=== PATIENT | female | born 1980 | race African-American/Black ===

== ENCOUNTER 2024-01-29 16:57 | Emergency (ER) | payer OTHER, SELFPAY ==
--- NOTE | ~2024-01-29 | US_ITS ---
EXAMINATION: US transvaginal DATE: 01/29/2024 21:25 INDICATION: Ovarian cyst and lower abdominal pain. TECHNIQUE: Multiple endovaginal sonographic images of the pelvis were obtained. COMPARISON: None. FINDINGS: The uterus measures 7.4 x 4.0 x 4.2r cm. The endometrial complex measures 10 mm in thickness. The ri ght ovary measures 3.2 x 1.5 x 2.2 cm. The left ovary measures 3.7 x 2.4 x 2.6 cm. 2.[address]/follicle at the left ovary. Vascular flow identified in both ovaries on color Doppler. There is sm all amount of anechoic likely physiologic free fluid in the pelvis. IMPRESSION: 1. Redemonstration of a 2.1 cm anechoic cyst/follicle in the left ovary with vascular flow identified in both ovaries on color Doppler. Reviewed, dictated and finalized at location A. IMPRESSION: 1. Redemonstration of a 2.1 cm anechoic cyst/follicle in the left ovary with va scular flow identified in both ovaries on color Doppler.
--- NOTE | ~2024-01-29 | CT_ITS ---
EXAMINATION: CT abdomen pelvis w con DATE: 01/29/2024 20:09 INDICATION: Diffuse abdominal pain TECHNIQUE: Computed tomography (CT) of the abdomen and pelvis was performed with 100 mL Omnipaque-350 intravenous contrast. Automated exposure control and iterative reconstruction technique were employe d. The dose-length product was 880.08 mGy-cm. COMPARISON: None FINDINGS: Lung bases are clear. Heart size is normal. No pericardial or pleural effusion. Focal hepatic steatos is at the ligamentum teres. Decompressed gallbladder, spleen, pancreas, bilateral adrenal glands and kidneys are normal. Suture line likely related to appendectomy at the tip the cecum. Bowels are other valdez normal with no wall thickening or obstruction. Decompressed bladder is normal. 2 cm left ovarian cyst/follicle. The anteverted uterus, right ovary and partially decompressed bladder are unremarkabl e. Minimal likely physiologic free fluid in the cul-de-sac. No pathologically enlarged abdominal or p elvic lymphadenopathy. Mild bilateral hip osteoarthritis. IMPRESSION: 1. 2 similar left adnexal cyst/follicle and small amount of likely physiologic free fluid in the cul- de-sac. No other acute intra-abdominal/pelvic process. Reviewed, dictated and finalized at location A. IMPRESSION: 1. 2 similar left adnexal cyst/follicle and small amount of likely physiologic free fluid in the cul-de-sac. No other acute intra-abdominal/pelvic process.
[2024-01-29 17:17] VITALS: BP 136/89; PULSE 78; RESP 18; TEMP 36.4; O2SAT 98
--- NOTE | 2024-01-29 18:13 | ED_ITS ---
HPI - Nausea/Vomiting/Diarrhea General Chief complaint: Nausea/Vomiting/Diarrhea <Desiree Vazquez PA-C - Last Filed: 01/31/24 17:19> Stated complaint: abd pain/vomitting <Desiree Vazquez PA-C - Last Filed: 01/31/24 17:19> Time Seen by Provider: 01/29/24 18:13 <Desiree Vazquez PA-C - Last Filed: 01/31/24 17:19> Focused HPI: this is a 43-year-old female that presents emergency department for abdominal pain, nausea and vomiting. Reports this has been ongoing issue for her for several months. Worsening over the last couple of days. She has seen a GI doctor and was told she had fatty liver disease. She reports she saw blood in her vomit. Denies fevers. GENERAL: Well-appearing, well-nourished, and in no acute distress. HEAD: Normocephalic, atraumatic. CHEST: Clear to auscultation. ?No respiratory distress. HEART: Regular rate and rhythm.? NEURO: ?Alert and oriented x3. Patient screened in triage and initial orders placed.? ?Additional care and disposition to be based upon?diagnostic testing and treatment. <Desiree Vazquez PA-C - Last Filed: 01/31/24 17:19> History of Present Illness HPI Narrative: 43-year-old female with a history of fatty liver disease presents to emergency department via EMS from home for vomiting for 6 months and abdominal pain for 2 and half days. Patient states her pain is located in her lower abdomen she describes it is a sharp pain and states she has burning in her upper abdomen. She states every time she tries to eat or drink any type of food she will immediately vomit. This is been ongoing for 6 months. States she has followed with GI has had an EGD. She is still showed fatty liver disease but otherwise states her workup was normal. She has not followed up since. She states she has noticed blood in her vomit today and she has had dark stools for the past couple of days. She is not anticoagulated. Denies dysuria or hematuria, constipation or diarrhea, emesis. She reports associated nausea. She states she uses alcohol occasionally and denies drug use. <Mary Dubois PA-C - Last Filed: 01/29/24 22:29> Related Data Allergies/Adverse reactions: Allergies Allergy/AdvReac Type Severity Reaction Status Date / Time amoxicillin Allergy Swelling Verified 01/29/24 16:58 <Desiree Vazquez PA-C - Last Filed: 01/31/24 17:19> Review of Systems Review of Systems: All systems reviewed & are unremarkable except as noted in HPI and below <Mary Dubois PA-C - Last Filed: 01/29/24 22:29> [facility] Past Medical History Medical History: Medical History (Updated 01/31/24 @ 17:19 by Desiree Vazquez PA-C) History of gastroesophageal reflux (GERD) History of migraine <Desiree Vazquez PA-C - Last Filed: 01/31/24 17:19> Social History Social History: Social History (Updated 01/31/24 @ 17:18 by Desiree Vazquez PA-C) Substance use: never <Desiree Vazquez PA-C - Last Filed: 01/31/24 17:19> Exam Narrative: GENERAL: Well-appearing, well-nourished, and in no acute distress. HEAD: Normocephalic, atraumatic. EYES: EOMI. ENT: Nares clear, no rhinorrhea or epistaxis. Mucous membranes moist. NECK: Supple. CHEST: Clear to auscultation. No respiratory distress. HEART: Regular rate and rhythm. No murmur heard. Normal peripheral pulses. ABDOMEN: Normoactive bowel sounds. Abdomen soft with mild lower abdominal tenderness. No rebound, guarding or rigidity. No CVA tenderness. Rectal exam chaperoned by DREW Rico -no hemorrhoids or fissures visualized, no melena or hematochezia. Hemoccult negative EXTREMITIES: Normal range of motion. No edema. SKIN: Warm, dry, no rash. NEURO: No focal deficits. Alert and oriented x3 <Mary Dubois PA-C - Last Filed: 01/29/24 22:29> Course Vital Signs Vital signs: Vital Signs Temperature 97.6 F 01/29/24 17:17 Pulse Rate 78 01/29/24 17:17 Respiratory Rate 18 01/29/24 17:17 Blood Pressure 136/89 01/29/24 17:17 Pulse Oximetry 98 01/29/24 17:17 Temperature 97.6 F 01/29/24 17:17 Pulse Rate 89 01/29/24 19:45 Respiratory Rate 20 01/29/24 19:45 Blood Pressure 114/79 01/29/24 19:33 Pulse Oximetry 100 01/29/24 19:45 <Desiree Vazquez PA-C - Last Filed: 01/31/24 17:19> Vital Signs Temperature 97.6 F 01/29/24 17:17 Pulse Rate 78 01/29/24 17:17 Respiratory Rate 18 01/29/24 17:17 Blood Pressure 136/89 01/29/24 17:17 Pulse Oximetry 98 01/29/24 17:17 Temperature 97.6 F 01/29/24 17:17 Pulse Rate 89 01/29/24 19:45 Respiratory Rate 20 01/29/24 19:45 Blood Pressure 114/79 01/29/24 19:33 Pulse Oximetry 100 01/29/24 19:45 <Mary Dubois PA-C - Last Filed: 01/29/24 22:29> MDM - Nausea/Vomiting/Diarrhea MDM Narrative Medical decision making narrative: 43-year-old female with history of fatty liver disease presents to emergency department for abdominal pain for 2 and half days and vomiting for 6 months. Triage vitals are stable. She is afebrile nontoxic appearing. She is resting comfortably in exam bed. Exam is significant for the above. Hemoccult is negative, no melena or hematochezia appreciated on exam. CBC shows mild leukocytosis of 11.8. Hemoglobin is stable at 12, chemistries are unremarkable. Lipase is normal. UA without wbc's. There are trace leuk esterase and 4+ bacteria, the sample is contaminated with many squamous cells. She has no symptoms of UTI. is negative. EKG shows sinus rhythm with rate of 70 BP a, normal [place] interval, normal QRS duration, normal QTC. Troponin is undetectable. CT abdomen pelvis shows 2 similar left adnexal cyst falls goals and small amount of likely physiologic free fluid in the cul-de-sac, there is no other acute intra-abdominal or pelvic process. Given these findings, a pe lvic ultrasound which obtained which shows no evidence of torsion. There is a redemonstration of the 2.1 cm anechoic cyst/follicle in the left ovary with vascular flow identified to both ovaries. Patient was updated on workup. She received IV fluids, Zofran, Protonix and morphine with improvement. She has not had any episodes of melena or hematemesis in the ED. She is tolerating p.o. intake in the ED. Feel she is safe to be discharged home with Protonix and Zofran. Encouraged frequent small meals and close follow-up with GI and OBGYN. Strict ED return precautions discussed. She is agreeable to plan verbalized understanding. Discharged in stable condition <Mary Dubois PA-C - Last Filed: 01/29/24 22:29> Lab Data Result diagrams: 01/29/24 19:17 01/29/24 19:17 <Desiree Vazquez PA-C - Last Filed: 01/31/24 17:19> Labs: Lab Results 01/29/24 01/29/24 Range/Units 18:56 19:17 WBC 11.8 H (4.5-10.0) K/mm3 RBC 4.29 (4.2-5.4) M/mm3 Hgb 12.0 (12.0-15.0) g/dL Hct 37.1 (37.0-47.0) % MCV 86.5 (80-100) fl MCH 28.0 (26-34) pg MCHC 32.3 (32-36) g/dl RDW 14.6 H (11.5-14.5) % Plt Count 361 (150-375) k/mm3 MPV 9.0 (7.4-10.4) fl Immature Gran % (Auto) 0.3 (0-0.5) % Neut % (Auto) 62.7 (45.5-73.1) % Lymph % (Auto) 25.2 (18.3-44.2) % Shannon % (Auto) 9.9 H (2.6-8.5) % Eos % (Auto) 1.5 (0-4.4) % Baso % (Auto) 0.4 (0.2-1.2) % Lymph # (Auto) 2.97 (0.9-3.2) K/mm3 Shannon # (Auto) 1.2 H (0.1-0.6) K/mm3 Eos # (Auto) 0.2 (0-0.3) K/mm3 Baso # (Auto) 0.1 (0.0-0.1) K/mm3 Abs Immat Gran (auto) 0.04 H (0.00-0.031) K/mm3 Absolute Neuts (auto) 7.4 H (1.3-6.7) K/mm3 Absolute Nucleated RBC 0.000 (0.0-0.012) K/mm3 Nucleated RBC % 0.0 (0.0-0.2) % PT 12.9 (11.1-14.7) Seconds INR 0.9 APTT 28.9 (22.3-36.8) Seconds Sodium 137 (137-145) mmol/L Potassium 3.5 (3.4-5.0) mmol/L Chloride 104 (98-107) mmol/L Carbon Dioxide 28 (22-30) mmol/L Anion Gap 5 (4-12) mmol/L BUN 8 (7-17) mg/dL Creatinine 0.70 (0.7-1.0) mg/dL Estim Creat Clear Calc 99 ml/min Estimated GFR > 60 (59 - ) Glucose 105 (65-110) mg/dL Calcium 8.7 (8.4-10.2) mg/dL Total Bilirubin 0.3 (0.2-1.3) mg/dL AST 20 (14-36) U/L ALT 17 (6-35) U/L Alkaline Phosphatase 66 (38-126) U/L Troponin I < 0.012 (0.000-0.034) ng/mL Total Protein 7.0 (6.3-8.2) g/dL Albumin 4.0 (3.5-5.1) g/dL Lipase 77 (23-300) U/L Urine Color Yellow (Yellow) Urine Appearance Cloudy H (Clear) Urine pH 6.0 (5.0-9.0) Ur Specific [place] 1.027 (1.001-1.035) Urine Protein 1+ H (Negative) mg/dL Urine Glucose (UA) Negative (Negative) mg/dL Urine Ketones Trace H (Negative) mg/dL Ur Blood (Man) Negative (Negative) Urine Nitrate Negative (Negative) Urine Bilirubin Negative (Negative) Urine Urobilinogen 1.0 (<2.0) mg/dL Add Ur Microanalysis Reviewed Leukocyte Esterase Rfl Trace H (Negative) RODRÍGUEZ/UL Urine RBC 0-2 (0-2) /hpf Urine WBC 0-5 (0-3) /hpf Ur Squamous Epith Cells Many H (Few) /hpf Urine Bacteria 4+ H /hpf Urine Casts 0-2 POC Urine HCG, Qual Negative (Negative) <Desiree Vazquez PA-C - Last Filed: 01/31/24 17:19> Lab Results 01/29/24 01/29/24 Range/Units 18:56 19:17 WBC 11.8 H (4.5-10.0) K/mm3 RBC 4.29 (4.2-5.4) M/mm3 Hgb 12.0 (12.0-15.0) g/dL Hct 37.1 (37.0-47.0) % MCV 86.5 (80-100) fl MCH 28.0 (26-34) pg MCHC 32.3 (32-36) g/dl RDW 14.6 H (11.5-14.5) % Plt Count 361 (150-375) k/mm3 MPV 9.0 (7.4-10.4) fl Immature Gran % (Auto) 0.3 (0-0.5) % Neut % (Auto) 62.7 (45.5-73.1) % Lymph % (Auto) 25.2 (18.3-44.2) % Shannon % (Auto) 9.9 H (2.6-8.5) % Eos % (Auto) 1.5 (0-4.4) % Baso % (Auto) 0.4 (0.2-1.2) % Lymph # (Auto) 2.97 (0.9-3.2) K/mm3 Shannon # (Auto) 1.2 H (0.1-0.6) K/mm3 Eos # (Auto) 0.2 (0-0.3) K/mm3 Baso # (Auto) 0.1 (0.0-0.1) K/mm3 Abs Immat Gran (auto) 0.04 H (0.00-0.031) K/mm3 Absolute Neuts (auto) 7.4 H (1.3-6.7) K/mm3 Absolute Nucleated RBC 0.000 (0.0-0.012) K/mm3 Nucleated RBC % 0.0 (0.0-0.2) % PT 12.9 (11.1-14.7) Seconds INR 0.9 APTT 28.9 (22.3-36.8) Seconds Sodium 137 (137-145) mmol/L Potassium 3.5 (3.4-5.0) mmol/L Chloride 104 (98-107) mmol/L Carbon Dioxide 28 (22-30) mmol/L Anion Gap 5 (4-12) mmol/L BUN 8 (7-17) mg/dL Creatinine 0.70 (0.7-1.0) mg/dL Estim Creat Clear Calc 99 ml/min Estimated GFR > 60 (59 - ) Glucose 105 (65-110) mg/dL Calcium 8.7 (8.4-10.2) mg/dL Total Bilirubin 0.3 (0.2-1.3) mg/dL AST 20 (14-36) U/L ALT 17 (6-35) U/L Alkaline Phosphatase 66 (38-126) U/L Troponin I < 0.012 (0.000-0.034) ng/mL Total Protein 7.0 (6.3-8.2) g/dL Albumin 4.0 (3.5-5.1) g/dL Lipase 77 (23-300) U/L Urine Color Yellow (Yellow) Urine Appearance Cloudy H (Clear) Urine pH 6.0 (5.0-9.0) Ur Specific [place] 1.027 (1.001-1.035) Urine Protein 1+ H (Negative) mg/dL Urine Glucose (UA) Negative (Negative) mg/dL Urine Ketones Trace H (Negative) mg/dL Ur Blood (Man) Negative (Negative) Urine Nitrate Negative (Negative) Urine Bilirubin Negative (Negative) Urine Urobilinogen 1.0 (<2.0) mg/dL Add Ur Microanalysis Reviewed Leukocyte Esterase Rfl Trace H (Negative) RODRÍGUEZ/UL Urine RBC 0-2 (0-2) /hpf Urine WBC 0-5 (0-3) /hpf Ur Squamous Epith Cells Many H (Few) /hpf Urine Bacteria 4+ H /hpf Urine Casts 0-2 POC Urine HCG, Qual Negative (Negative) <Mary Dubois PA-C - Last Filed: 01/29/24 22:29> Imaging Data Radiologist's impression: ITS Impressions Abdomen/Pelvis CT 01/29/24 20:10 IMPRESSION: 1. 2 similar left adnexal cyst/follicle and small amount of likely physiologic free fluid in the cul-de-sac. No other acute intra-abdominal/pelvic process. Transvaginal US 01/29/24 21:28 IMPRESSION: 1. Redemonstration of a 2.1 cm anechoic cyst/follicle in the left ovary with vascular flow identified in both ovaries on color Doppler. <ZAIN Walter Last Filed: 01/31/24 17:19> Critical Care Time Critical Care Time Critical Care Time: No <ZAIN Walter Last Filed: 01/31/24 17:19> Discharge Plan Discharge Clinical Impression: Abdominal pain, Ovarian cyst <ZAIN Walter Last Filed: 01/31/24 17:19> Patient Disposition: Home, Self-Care <ZAIN Walter Last Filed: 01/31/24 17:19> Condition: Stable <ZAIN Walter Last Filed: 01/31/24 17:19> Instructions: Antibiotic Form, Ovarian Cyst (ED), Acute Nausea and Vomiting (ED), Abdominal Pain (ED) <ZAIN Walter Last Filed: 01/31/24 17:19> Additional Instructions: Your evaluated in the emergency department for lower abdominal pain and v omiting. Your found to have a 2 cm cyst to her left ovary which may be physiologic as discussed. Your workup was otherwise unremarkable. Please take Protonix as directed and Zofran as needed and follow-up closely with the GI physician as well as the OBGYN. Return to the emergency department if you develop large amounts of blood in her stool or dark tarry stools, or vomiting blood, chest pain, loss of consciousness, changing worsening abdominal pain, or other concerning symptoms. <ZAIN Walter Last Filed: 01/31/24 17:19> Prescriptions: New ondansetron 4 mg tablet,disintegrating 4 mg PO Q8H Qty: 14 0RF pantoprazole 40 mg tablet,delayed release (DR/EC) 40 mg PO HS 28 Days Qty: 28 0RF <Desiree Vazquez PA-C - Last Filed: 01/31/24 17:19> Follow-up/Referrals: Nell Valdez MD [Physician] - 1 Day PHYSICIAN,HOUSING PROJECT MANAGER [Primary Care Provider] - Omid Brennan MD [Physician] - 1 Day <Desiree Vazquez PA-C - Last Filed: 01/31/24 17:19> Stand Alone Forms: Work/School Release IP <Desiree Vazquez PA-C - Last Filed: 01/31/24 17:19>
[2024-01-29 18:45] VITALS: BP 128/110; RESP 20; O2SAT 100
[2024-01-29 18:58] LABS: BEDSIDEPREGUCG Negative (Negative)
--- NOTE | 2024-01-29 18:59 | ECG_ITS ---
Test Date: 2024-01-29 19:29:29 Measurements Intervals [place] Rate: 78 P: 32 [place]: 134 QRS: 22 QRSD: 75 T: 15 QT: 368 QTc: 421 Interpretive Statements SINUS RHYTHM No previous ECG available for comparison Electronically Signed On 01-30-2024 09:39:01 CDT by Leidy Argueta M.D.
[2024-01-29 19:23] LABS: Basophils Absolute Auto 0.1 K/mm3 (0.0-0.1); Basophils Percent Auto 0.4 % (0.2-1.2); Eosinophils Absolute Auto 0.2 K/mm3 (0-0.3); Eosinophils Percent Auto 1.5 % (0-4.4); Hematocrit 37.1 % (37.0-47.0); Immature Granulocyte Absolute 0.04 K/mm3 (0.00-0.031); Immature Granulocyte Percent A 0.3 % (0-0.5); Lymphocytes Absolute Auto 2.97 K/mm3 (0.9-3.2); Lymphocytes Percent Auto 25.2 % (18.3-44.2); Mean Corpuscular HGB Conc 32.3 g/dl (32-36); Mean Corpuscular Volume 86.5 fl (80-100); Monocytes Absolute Auto 1.2 K/mm3 (0.1-0.6); Monocytes Percent Auto 9.9 % (2.6-8.5); Neutrophils Absolute Auto 7.4 K/mm3 (1.3-6.7); Neutrophils Percent Auto 62.7 % (45.5-73.1); Platelet Count Result 361 k/mm3 (150-375); Red Blood Count 4.29 M/mm3 (4.2-5.4); Red Cell Distribution Width 14.6 % (11.5-14.5); White Blood Count 11.8 K/mm3 (4.5-10.0)
[2024-01-29] MEDS: SODIUM CHLORIDE 0.9% IV 1,000 ML 999 ML IV CONT (19:28)
[2024-01-29 19:31] LABS: Alanine Aminotransferase 17 U/L (6-35); Alkaline Phosphatase 66 U/L (38-126); Anion Gap 5 mmol/L (4-12); Aspartate Amino Transferase 20 U/L (14-36); Bilirubin,Total 0.3 mg/dL (0.2-1.3); Blood Urea Nitrogen 8 mg/dL (7-17); Calcium 8.7 mg/dL (8.4-10.2); Carbon Dioxide 28 mmol/L (22-30); Chloride 104 mmol/L (98-107); Estimated CRCL calculation 99 ml/min; Estimated Glomerular Filt Rate > 60; Glucose 105 mg/dL (65-110); Lipase 77 U/L (23-300); Potassium 3.5 mmol/L (3.4-5.0); Sodium 137 mmol/L (137-145)
[2024-01-29] MEDS: PANTOPRAZOLE SODIUM IV 40 MG VIAL IV PUSH (19:31)
[2024-01-29] MEDS: ONDANSETRON INJ 4 MG/2 ML VIAL IV PUSH (19:32)
[2024-01-29 19:33] VITALS: BP 114/79; PULSE 75; RESP 18; O2SAT 99
[2024-01-29 19:36] LABS: INR 0.9; Partial Thromboplastin Time 28.9 Seconds (22.3-36.8); Prothrombin Time 12.9 Seconds (11.1-14.7)
[2024-01-29 19:39] LABS: Add Urine Microscopic? YES; Appearance Urine Cloudy (Clear); Bacteria Urine 4+ /hpf; Bilirubin Urine Negative (Negative); Blood Urine Negative (Negative); Color Urine Yellow (Yellow); Glucose Urine UA Negative (Negative); Ketones Urine Trace mg/dL (Negative); Leukocyte Esterase Ur Trace LEU/UL (Negative); Need Manual Microscopic Reviewed; Nitrate Urine Negative (Negative); Non Pathogenic Casts 0-2; Protein Urine 1+ mg/dL (Negative); RBC Urine 0-2 /hpf (0-2); Specific Grav Ur 1.027 (1.001-1.035); Squamous Epithelial Cell Urine Many /hpf (Few); WBC Urine 0-5 /hpf (0-3)
[2024-01-29 19:45] VITALS: PULSE 89; RESP 20; O2SAT 100
[2024-01-29 19:48] LABS: Troponin I < 0.012 ng/mL (0.000-0.034)
[2024-01-29] MEDS: MORPHINE SULFATE (*CRX) 4 MG/ML INJ IV PUSH (20:51)
== END 2024-01-29 22:46 | disposition home or self-care (01) ==
PROVIDERS: Physician Assistant; Emergency Provider Physician Assistant
DX: N83.202 Unspecified ovarian cyst, left side (principal); R10.9 Unspecified abdominal pain; K21.9 Gastro-esophageal reflux disease without esophagitis; K76.0 Fatty (change of) liver, not elsewhere classified
CPT/HCPCS: 36415; 74177; 76830; 80053; 81001; 81025; 83690; 84484; 85025; 85610; 85730; 93005; 96361; 96374; 96375; 99284; J2270; J2405; J2470; J7030; Q9967

== ENCOUNTER 2024-02-04 14:07 | Emergency (ER) | payer OTHER, SELFPAY ==
--- NOTE | ~2024-02-04 | CT_ITS ---
EXAMINATION: CT abdomen pelvis w con DATE: 02/04/2024 17:26 INDICATION: One month of abdominal pain TECHNIQUE: Computed tomography (CT) of the abdomen and pelvis was performed with 100 mL Omnipaque-350 intravenous contrast. Automated exposure control and iterative reconstruction technique were employe d. The dose-length product was 982.74 mGy-cm. COMPARISON: 01/29/2024 FINDINGS: Lung bases are clear. Heart size is normal. No pericardial or pleural effusion. Focal hepatic steatos is at the ligamentum teres. Gallbladder, spleen, pancreas, bilateral adrenal glands and kidneys are n ormal. Suture line likely related to prior appendectomy with the tip the cecum. No bowel obstruction or abnormal bowel wall thickening. Decompressed bladder and anteverted uterus are normal. 1.7 cm jada pherally enhancing corpus luteum cyst at the left ovary. Phleboliths in the pelvis. Small amount of l ikely physiologic free fluid in the cul-de-sac. No pathologically enlarged abdominal or pelvic lympha denopathy. Mild bilateral hip osteoarthritis. IMPRESSION: 1. 1.7 cm left ovarian corpus luteum cyst and small amount of likely physiologic free fluid in the cu l-de-sac. No other acute intra-abdominal/pelvic process. Reviewed, dictated and finalized at location A. IMPRESSION: 1. 1.7 cm left ovarian corpus luteum cyst and small amount of likely physiologi c free fluid in the cul-de-sac. No other acute intra-abdominal/pelvic process.
[2024-02-04 14:32] VITALS: BP 117/82; PULSE 85; RESP 16; TEMP 36.6; O2SAT 100
--- NOTE | 2024-02-04 14:37 | ECG_ITS ---
Test Date: 2024-02-04 14:53:46 Measurements Intervals [place] Rate: 75 P: -20 [place]: 138 QRS: 24 QRSD: 74 T: 1 QT: 349 QTc: 392 Interpretive Statements SINUS RHYTHM Compared to ECG 01/29/2024 19:29:29 No significant changes Electronically Signed On 02-05-2024 14:23:51 CDT by Leidy Argueta M.D.
--- NOTE | 2024-02-04 14:39 | ED_ITS ---
HPI - Abdominal Pain General Chief Complaint: Abdominal Pain <Erin Silverio APRN - Last Filed: 02/04/24 14:41> Stated Complaint: abdominal pain, N/V <Erin Silverio APRN - Last Filed: 02/04/24 14:41> Time Seen by Provider: 02/04/24 14:30 <Erin Silverio APRN - Last Filed: 02/04/24 14:41> Focused HPI: Patient is a 43-year-old female who presents to the ER with complaints abdominal pain that has been going on for over a week. She reports she was seen here last week, had an ultrasound done, and was diagnosed with an ovarian cyst. This morning she went to her primary care provider who advised her to come to the ER. Her primary care provider told her to request evaluation by a surgeon. Patient endorses constant, lower abdominal pain with pressure during urination. She denies any concern for STDs and reports her last menstrual period was January 08 through the . GENERAL: Well-appearing, well-nourished, and in no acute distress. HEAD: Normocephalic, atraumatic. CHEST: Clear to auscultation. ?No respiratory distress. HEART: Regular rate and rhythm.? NEURO: ?Alert and oriented x3. Patient screened in triage and initial orders placed.? ?Additional care and disposition to be based upon?diagnostic testing and treatment. <Erin Silverio APRN - Last Filed: 02/04/24 14:41> Related Data Allergies/Adverse Reactions: Allergies Allergy/AdvReac Type Severity Reaction Status Date / Time amoxicillin Allergy Swelling Verified 02/04/24 14:34 <Erin Silverio APRN - Last Filed: 02/04/24 14:41> Review of Systems Review of Systems: CONSTITUTIONAL: Denies fever GASTROINTESTINAL: Reports abdominal pain, nausea, vomiting GENITOURINARY: Reports dysuria. Denies hematuria. <Desiree Vazquez PA-C - Last Filed: 02/04/24 19:20> All systems reviewed & are unremarkable except as noted in HPI and below <Desiree Vazquez PA-C - Last Filed: 02/04/24 19:20> PMFSH Past Medical History Medical History: Medical History (Updated 02/04/24 @ 19:17 by Desiree Vazquez PA-C) History of gastroesophageal reflux (GERD) History of migraine <Erin Silverio APRN - Last Filed: 02/04/24 14:41> Social History Social History: Social History (Updated 01/31/24 @ 17:18 by eDsiree Vazquez PA-C) Substance use: never <Erin Silverio APRN - Last Filed: 02/04/24 14:41> Exam Narrative: GENERAL: Well-appearing, well-nourished, and in no acute distress. HEAD: Normocephalic, atraumatic. EYES: EOMI. CHEST: Clear to auscultation. No respiratory distress. No wheezes rales or rhonchi HEART: Regular rate and rhythm. No murmur heard. Normal peripheral pulses. ABDOMEN: Soft, nondistended, normal active bowel sounds. Mild tenderness to palpation throughout the lower abdomen, without guarding EXTREMITIES: Normal range of motion. No edema. SKIN: Warm, dry, no rash. NEURO: No focal deficits. Alert and oriented x3. PSYCH: Normal mood and affect <Desiree Vazquez PA-C - Last Filed: 02/04/24 19:20> Course Course Emergency Course: Patient updated on her workup <Desiree Vazquez PA-C - Last Filed: 02/04/24 19:20> Vital Signs Vital signs: Vital Signs Temperature 97.9 F 02/04/24 14:32 Pulse Rate 85 02/04/24 14:32 Respiratory Rate 16 02/04/24 14:32 Blood Pressure 117/82 02/04/24 14:32 Pulse Oximetry 100 02/04/24 14:32 Oxygen Delivery Room Air 02/04/24 14:32 Temperature 97.8 F 02/04/24 17:31 Pulse Rate 70 02/04/24 17:31 Respiratory Rate 15 02/04/24 17:31 Blood Pressure 107/72 02/04/24 17:31 Pulse Oximetry 98 02/04/24 17:31 Oxygen Delivery Room Air 02/04/24 17:31 <Erin Silverio APRN - Last Filed: 02/04/24 14:41> Vital Signs Temperature 97.9 F 02/04/24 14:32 Pulse Rate 85 02/04/24 14:32 Respiratory Rate 16 02/04/24 14:32 Blood Pressure 117/82 02/04/24 14:32 Pulse Oximetry 100 02/04/24 14:32 Oxygen Delivery Room Air 02/04/24 14:32 Temperature 97.8 F 02/04/24 17:31 Pulse Rate 70 02/04/24 17:31 Respiratory Rate 15 02/04/24 17:31 Blood Pressure 107/72 02/04/24 17:31 Pulse Oximetry 98 02/04/24 17:31 Oxygen Delivery Room Air 02/04/24 17:31 <Desiree Vazquez PA-C - Last Filed: 02/04/24 19:20> MDM - Abdominal Pain MDM Narrative Medical decision making narrative: Patient presents to the emergency department for lower abdominal pain. Ongoing over the last week. She is afebrile and nontoxic appearing. Her vitals are stable. CBC without leukocytosis. Metabolic panel without concerning findings. Urine without evidence of infection. This will be sent for culture. Patient given 1st dose of antibiotics IV in the ER. Lactic acid is not elevated. CT abdomen and pelvis once again shows a small ovarian cyst, otherwise no acute findings. Patient updated on her workup. Will be continued on oral antibiotics for UTI. She is to follow up with primary provider. She was given warnings to return to the ER <Desiree Vazquez PA-C - Last Filed: 02/04/24 19:20> Differential Diagnosis Differential diagnosis: Likely acute appendicitis, calculus of kidney, constipation, diverticulitis, gastroenteritis and other (ovarian cyst, acute UTI, pyelonephritis) <Desiree Vazquez PA-C - Last Filed: 02/04/24 19:20> Lab Data Attestation: I reviewed the patient's lab results. <Desiree Vazquez PA-C - Last Filed: 02/04/24 19:20> Result diagrams: 02/04/24 15:04 02/04/24 15:04 <Erin Silverio APRN - Last Filed: 02/04/24 14:41> Labs: Lab Results 02/04/24 02/04/24 02/04/24 Range/Units 15:04 15:05 17:41 WBC 8.3 (4.5-10.0) K/mm3 RBC 4.42 (4.2-5.4) M/mm3 Hgb 12.2 (12.0-15.0) g/dL Hct 37.6 (37.0-47.0) % MCV 85.1 (80-100) fl MCH 27.6 (26-34) pg MCHC 32.4 (32-36) g/dl RDW 14.5 (11.5-14.5) % Plt Count 358 (150-375) k/mm3 MPV 8.9 (7.4-10.4) fl Immature Gran % (Auto) 0.2 (0-0.5) % Neut % (Auto) 59.6 (45.5-73.1) % Lymph % (Auto) 27.5 (18.3-44.2) % Sabine % (Auto) 11.2 H (2.6-8.5) % Eos % (Auto) 1.3 (0-4.4) % Baso % (Auto) 0.2 (0.2-1.2) % Lymph # (Auto) 2.27 (0.9-3.2) K/mm3 Sabine # (Auto) 0.9 H (0.1-0.6) K/mm3 Eos # (Auto) 0.1 (0-0.3) K/mm3 Baso # (Auto) 0.0 (0.0-0.1) K/mm3 Abs Immat Gran (auto) 0.02 (0.00-0.031) K/mm3 Absolute Neuts (auto) 4.9 (1.3-6.7) K/mm3 Absolute Nucleated RBC 0.000 (0.0-0.012) K/mm3 Nucleated RBC % 0.0 (0.0-0.2) % PT 14.3 (11.1-14.7) Seconds INR 1.1 APTT 34.7 (22.3-36.8) Seconds Sodium 139 (137-145) mmol/L Potassium 3.4 (3.4-5.0) mmol/L Chloride 106 (98-107) mmol/L Carbon Dioxide 25 (22-30) mmol/L Anion Gap 8 (4-12) mmol/L BUN 6 L (7-17) mg/dL Creatinine 0.60 L (0.7-1.0) mg/dL Estim Creat Clear Calc 113 ml/min Estimated GFR > 60 (59 - ) Glucose 103 (65-110) mg/dL Lactic Acid 1.3 (0.7-2.0) mmol/L Calcium 8.8 (8.4-10.2) mg/dL Total Bilirubin 0.3 (0.2-1.3) mg/dL AST 22 (14-36) U/L ALT 17 (6-35) U/L Alkaline Phosphatase 68 (38-126) U/L Troponin I < 0.012 (0.000-0.034) ng/mL Total Protein 7.0 (6.3-8.2) g/dL Albumin 4.2 (3.5-5.1) g/dL Lipase 77 (23-300) U/L Urine Color Dark yellow (Yellow) Urine Appearance Turbid H (Clear) Urine pH 5.5 (5.0-9.0) Ur Specific Tinnie 1.034 (1.001-1.035) Urine Protein 1+ H (Negative) mg/dL Urine Glucose (UA) Negative (Negative) mg/dL Urine Ketones Trace H (Negative) mg/dL Ur Blood (Man) Negative (Negative) Urine Nitrate Negative (Negative) Urine Bilirubin Negative (Negative) Urine Urobilinogen 1.0 (<2.0) mg/dL Add Ur Microanalysis Reviewed Leukocyte Esterase Rfl 1+ H (Negative) RODRÍGUEZ/UL Urine RBC 3-5 H (0-2) /hpf Urine WBC 51-100 H (0-3) /hpf Ur Squamous Epith Cells Many H (Few) /hpf Urine Bacteria 4+ H /hpf Urine Casts 0-2 <Erin Silverio, [employer] PRESS HAND - Last Filed: 02/04/24 14:41> Lab Results 02/04/24 02/04/24 02/04/24 Range/Units 15:04 15:05 17:41 WBC 8.3 (4.5-10.0) K/mm3 RBC 4.42 (4.2-5.4) M/mm3 Hgb 12.2 (12.0-15.0) g/dL Hct 37.6 (37.0-47.0) % MCV 85.1 (80-100) fl MCH 27.6 (26-34) pg MCHC 32.4 (32-36) g/dl RDW 14.5 (11.5-14.5) % Plt Count 358 (150-375) k/mm3 MPV 8.9 (7.4-10.4) fl Immature Gran % (Auto) 0.2 (0-0.5) % Neut % (Auto) 59.6 (45.5-73.1) % Lymph % (Auto) 27.5 (18.3-44.2) % Sabine % (Auto) 11.2 H (2.6-8.5) % Eos % (Auto) 1.3 (0-4.4) % Baso % (Auto) 0.2 (0.2-1.2) % Lymph # (Auto) 2.27 (0.9-3.2) K/mm3 Sabine # (Auto) 0.9 H (0.1-0.6) K/mm3 Eos # (Auto) 0.1 (0-0.3) K/mm3 Baso # (Auto) 0.0 (0.0-0.1) K/mm3 Abs Immat Gran (auto) 0.02 (0.00-0.031) K/mm3 Absolute Neuts (auto) 4.9 (1.3-6.7) K/mm3 Absolute Nucleated RBC 0.000 (0.0-0.012) K/mm3 Nucleated RBC % 0.0 (0.0-0.2) % PT 14.3 (11.1-14.7) Seconds INR 1.1 APTT 34.7 (22.3-36.8) Seconds Sodium 139 (137-145) mmol/L Potassium 3.4 (3.4-5.0) mmol/L Chloride 106 (98-107) mmol/L Carbon Dioxide 25 (22-30) mmol/L Anion Gap 8 (4-12) mmol/L BUN 6 L (7-17) mg/dL Creatinine 0.60 L (0.7-1.0) mg/dL Estim Creat Clear Calc 113 ml/min Estimated GFR > 60 (59 - ) Glucose 103 (65-110) mg/dL Lactic Acid 1.3 (0.7-2.0) mmol/L Calcium 8.8 (8.4-10.2) mg/dL Total Bilirubin 0.3 (0.2-1.3) mg/dL AST 22 (14-36) U/L ALT 17 (6-35) U/L Alkaline Phosphatase 68 (38-126) U/L Troponin I < 0.012 (0.000-0.034) ng/mL Total Protein 7.0 (6.3-8.2) g/dL Albumin 4.2 (3.5-5.1) g/dL Lipase 77 (23-300) U/L Urine Color Dark yellow (Yellow) Urine Appearance Turbid H (Clear) Urine pH 5.5 (5.0-9.0) Ur Specific Tinnie 1.034 (1.001-1.035) Urine Protein 1+ H (Negative) mg/dL Urine Glucose (UA) Negative (Negative) mg/dL Urine Ketones Trace H (Negative) mg/dL Ur Blood (Man) Negative (Negative) Urine Nitrate Negative (Negative) Urine Bilirubin Negative (Negative) Urine Urobilinogen 1.0 (<2.0) mg/dL Add Ur Microanalysis Reviewed Leukocyte Esterase Rfl 1+ H (Negative) RODRÍGUEZ/UL Urine RBC 3-5 H (0-2) /hpf Urine WBC 51-100 H (0-3) /hpf Ur Squamous Epith Cells Many H (Few) /hpf Urine Bacteria 4+ H /hpf Urine Casts 0-2 <Desiree Vazquez PA-C - Last Filed: 02/04/24 19:20> Imaging Data Radiologist's impression: ITS Impressions Abdomen/Pelvis CT 02/04/24 17:30 IMPRESSION: 1. 1.7 cm left ovarian corpus luteum cyst and small amount of likely physiologic free fluid in the cul-de-sac. No other acute intra-abdominal/pelvic process. <Erin Silverio, [employer] PRESS HAND - Last Filed: 02/04/24 14:41> ITS Impressions Abdomen/Pelvis CT 02/04/24 17:30 IMPRESSION: 1. 1.7 cm left ovarian corpus luteum cyst and small amount of likely physiologic free fluid in the cul-de-sac. No other acute intra-abdominal/pelvic process. <Desiree Vazquez PA-C - Last Filed: 02/04/24 19:20> Critical Care Time Critical Care Time Critical Care Time: No <Desiree Vazquez PA-C - Last Filed: 02/04/24 19:20> Discharge Plan Discharge Clinical Impression: Acute UTI <Erin Silverio APRN - Last Filed: 02/04/24 14:41> Patient Disposition: Home, Self-Care <Erin Silverio APRN - Last Filed: 02/04/24 14:41> Condition: Stable <Erin Silverio APRN - Last Filed: 02/04/24 14:41> Instructions: Antibiotic Form, Urinary Tract Infection in Women (ED), Abdominal Pain (ED) <Erin Silverio APRN - Last Filed: 02/04/24 14:41> Additional Instructions: Return to the ER if you experience fever, worsening abdominal pain with nausea and vomiting, you are unable to keep down liquids or solids, blood in the urine or any other symptoms that are concerning to you Remain well hydrated. Take oral antibiotics as prescribed Follow up with your primary care doctor <Erin Silverio APRN - Last Filed: 02/04/24 14:41> Prescriptions: New cefdinir 300 mg capsule 300 mg PO Q12H 7 Days Qty: 14 0RF No Action ondansetron 4 mg tablet,disintegrating 4 mg PO Q8H Qty: 14 0RF pantoprazole 40 mg tablet,delayed release (DR/EC) 40 mg PO HS 28 Days Qty: 28 0RF <Erin Silverio APRN - Last Filed: 02/04/24 14:41> Follow-up/Referrals: PHYSICIAN,SUPERVISOR ROVING [Non-Staff] - <Erin Silverio APRN - Last Filed: 02/04/24 14:41>
[2024-02-04 15:03] VITALS: BP 107/89; PULSE 80; RESP 15; O2SAT 97
[2024-02-04 15:10] LABS: Basophils Percent Auto 0.2 % (0.2-1.2); Eosinophils Absolute Auto 0.1 K/mm3 (0-0.3); Eosinophils Percent Auto 1.3 % (0-4.4); Hematocrit 37.6 % (37.0-47.0); Hemoglobin 12.2 g/dL (12.0-15.0); Immature Granulocyte Absolute 0.02 K/mm3 (0.00-0.031); Immature Granulocyte Percent A 0.2 % (0-0.5); Lymphocytes Absolute Auto 2.27 K/mm3 (0.9-3.2); Lymphocytes Percent Auto 27.5 % (18.3-44.2); Mean Corpuscular HGB Conc 32.4 g/dl (32-36); Mean Corpuscular Hemoglobin 27.6 pg (26-34); Mean Corpuscular Volume 85.1 fl (80-100); Mean Platelet Volume 8.9 fl (7.4-10.4); Monocytes Absolute Auto 0.9 K/mm3 (0.1-0.6); Monocytes Percent Auto 11.2 % (2.6-8.5); Neutrophils Absolute Auto 4.9 K/mm3 (1.3-6.7); Neutrophils Percent Auto 59.6 % (45.5-73.1); Platelet Count Result 358 k/mm3 (150-375); Red Blood Count 4.42 M/mm3 (4.2-5.4); Red Cell Distribution Width 14.5 % (11.5-14.5); White Blood Count 8.3 K/mm3 (4.5-10.0)
[2024-02-04 15:22] LABS: INR 1.1; Prothrombin Time 14.3 Seconds (11.1-14.7)
[2024-02-04 15:23] LABS: Partial Thromboplastin Time 34.7 Seconds (22.3-36.8)
[2024-02-04 15:40] LABS: Alanine Aminotransferase 17 U/L (6-35); Albumin Level 4.2 g/dL (3.5-5.1); Alkaline Phosphatase 68 U/L (38-126); Anion Gap 8 mmol/L (4-12); Aspartate Amino Transferase 22 U/L (14-36); Bilirubin,Total 0.3 mg/dL (0.2-1.3); Blood Urea Nitrogen 6 mg/dL (7-17); Calcium 8.8 mg/dL (8.4-10.2); Carbon Dioxide 25 mmol/L (22-30); Chloride 106 mmol/L (98-107); Estimated CRCL calculation 113 ml/min; Estimated Glomerular Filt Rate > 60; Glucose 103 mg/dL (65-110); Lipase 77 U/L (23-300); Potassium 3.4 mmol/L (3.4-5.0); Sodium 139 mmol/L (137-145); Troponin I < 0.012 ng/mL (0.000-0.034)
[2024-02-04 15:40] LABS: Lactic Acid Reflex 1.3 mmol/L (0.7-2.0)
[2024-02-04 17:31] VITALS: BP 107/72; PULSE 70; RESP 15; TEMP 36.6; O2SAT 98
[2024-02-04] MEDS: DICYCLOMINE HCL INJ 20 MG/2 ML VIAL IM (17:39)
[2024-02-04] MEDS: IBUPROFEN 600 MG TABLET PO (17:39)
[2024-02-04] MEDS: ACETAMINOPHEN 500 MG TABLET 1000 MG PO (17:39)
[2024-02-04 18:41] LABS: Add Urine Microscopic? YES; Appearance Urine Turbid (Clear); Bacteria Urine 4+ /hpf; Bilirubin Urine Negative (Negative); Blood Urine Negative (Negative); Color Urine Dark Yellow (Yellow); Glucose Urine UA Negative (Negative); Ketones Urine Trace mg/dL (Negative); Leukocyte Esterase Ur 1+ LEU/UL (Negative); Need Manual Microscopic Reviewed; Nitrate Urine Negative (Negative); Non Pathogenic Casts 0-2; Protein Urine 1+ mg/dL (Negative); Specific Grav Ur 1.034 (1.001-1.035); Squamous Epithelial Cell Urine Many /hpf (Few); WBC Urine 51-100 /hpf (0-3); pH Urine 5.5 (5.0-9.0)
[2024-02-04] MEDS: diazePAM INJ (*CRX) 10 MG/2 ML SYRINGE 5 MG IV PUSH (19:12)
--- NOTE | 2024-02-06 22:00 | PC.NURSE ---
LATE ENTRY This note is being entered to document information to the patient's record. The following information was omitted on [02/06/24], by [Noris Pham RN]. on 02/04/24 at 1939 the cef was stopped
== END 2024-02-04 19:39 | disposition home or self-care (01) ==
PROVIDERS: Registered Nurse; Emergency Provider Physician Assistant
DX: N39.0 Urinary tract infection, site not specified (principal); N83.12 Corpus luteum cyst of left ovary; K21.9 Gastro-esophageal reflux disease without esophagitis
CPT/HCPCS: 36415; 74177; 80053; 81001; 83605; 83690; 84484; 85025; 85610; 85730; 87086; 93005; 96365; 96372; 96375; 99284; A9270; J0500; J0696; J3360; Q9967

== ENCOUNTER 2024-03-24 08:18 | Outpatient (CLI) | payer OTHER, SELFPAY ==
--- NOTE | ~2024-03-24 | NM_ITS ---
EXAMINATION: NM hepatobiliary w pharm DATE: 03/24/2024 10:58 AREA DEVELOPMENT MANAGER INDICATION: Vomiting COMPARISON: CT dated 02/04/2024. TECHNIQUE: 4.6 mCi Tc-99m mebrofenin (Choletec) was administered intravenously. Scintigraphic images of the abdomen were obtained for one hour. At the 1 hour time point, the patient drank 8 oz Ensure, and imaging was continued for 60 minutes. Gallbladder ejection fraction was calculated by the technol ogist. FINDINGS: There is normal clearance of radiotracer from the blood pool. There is homogeneous tracer u ptake by the liver. Activity progresses to the bowel and gallbladder. The gallbladder ejection fract ion is 97%. Note that with this technique, normal GBEF >= 33%. IMPRESSION: 1. Normal hepatobiliary scan. Reviewed, dictated and finalized at location B. DEVELOPMENT MANAGER
[2024-03-24 09:16] LABS: Basophils Percent Auto 0.5 % (0.2-1.2); Eosinophils Absolute Auto 0.2 K/mm3 (0-0.3); Eosinophils Percent Auto 1.9 % (0-4.4); Hemoglobin 12.9 g/dL (12.0-15.0); Immature Granulocyte Absolute 0.02 K/mm3 (0.00-0.031); Immature Granulocyte Percent A 0.2 % (0-0.5); Lymphocytes Absolute Auto 2.15 K/mm3 (0.9-3.2); Lymphocytes Percent Auto 24.7 % (18.3-44.2); Mean Corpuscular HGB Conc 31.5 g/dl (32-36); Mean Platelet Volume 8.9 fl (7.4-10.4); Monocytes Absolute Auto 0.9 K/mm3 (0.1-0.6); Monocytes Percent Auto 10.6 % (2.6-8.5); Neutrophils Absolute Auto 5.4 K/mm3 (1.3-6.7); Neutrophils Percent Auto 62.1 % (45.5-73.1); Platelet Count Result 358 k/mm3 (150-375); Red Blood Count 4.77 M/mm3 (4.2-5.4); White Blood Count 8.7 K/mm3 (4.5-10.0)
[2024-03-24 09:29] LABS: Alanine Aminotransferase 18 U/L (6-35); Alkaline Phosphatase 75 U/L (38-126); Anion Gap 5 mmol/L (4-12); Aspartate Amino Transferase 22 U/L (14-36); Bilirubin,Total 0.4 mg/dL (0.2-1.3); Blood Urea Nitrogen 9 mg/dL (7-17); Calcium 8.6 mg/dL (8.4-10.2); Carbon Dioxide 28 mmol/L (22-30); Chloride 106 mmol/L (98-107); Estimated Glomerular Filt Rate > 60; Glucose 104 mg/dL (65-110); Potassium 3.8 mmol/L (3.4-5.0); Sodium 139 mmol/L (137-145)
== END 2024-03-24 08:19 | disposition home or self-care (01) ==
PROVIDERS: Visit Provider Surgery
DX: R11.10 Vomiting, unspecified (principal); K59.00 Constipation, unspecified; R10.31 Right lower quadrant pain; R10.32 Left lower quadrant pain
CPT/HCPCS: 36415; 78227; 80053; 85025; A9537; J2805

== ENCOUNTER 2024-04-10 08:07 | Outpatient (CLI) | payer OTHER, SELFPAY ==
--- NOTE | ~2024-04-10 | US_ITS ---
EXAMINATION: US pelvic complete w TV DATE: 04/10/2024 09:18 INDICATION: Vomiting, unspecified. Right lower quadrant abdominal pain. TECHNIQUE: Multiple transabdominal and transvaginal sonographic images of the pelvis were obtained. COMPARISON: CT abdomen and pelvis 02/04/2024 FINDINGS: TRANSABDOMINAL ULTRASOUND: The uterus measures 7.4 x 4.0 x 3.9 cm. There is physiologic free fluid in the pelvis. TRANSVAGINAL ULTRASOUND: The endometrial complex measures 6 mm in thickness. The right ovary measures 2.7 x 1.5 x 2.9 cm. The left ovary measures 3.1 x 1.6 x 2.3 cm. There is normal vascular flow in the ovaries. IMPRESSION: 1. Normal pelvis. Reviewed, dictated and finalized at location A. WRAPPER IMPRESSION: 1. Normal pelvis.
--- NOTE | ~2024-04-10 | US_ITS ---
EXAMINATION: US abdomen limited DATE: 04/10/2024 09:18 INDICATION: Vomiting, unspecified. TECHNIQUE: Multiple grayscale and Doppler ultrasound images of the abdomen were obtained. COMPARISON: CT abdomen and pelvis 02/04/2024 FINDINGS: The visualized portions of the head and body of the pancreas are normal. The liver is mery l without focal lesion. There is normal flow in main portal vein. The gallbladder is normal in size. No gallstones or gallbladder wall thickening. There is no sonographic Hemphill's sign. The common duct is normal and measures 2 mm. Right kidney is normal. IMPRESSION: 1. Normal right upper quadrant ultrasound. Reviewed, dictated and finalized at location A. ER CONTROL TECHNICIAN
== END 2024-04-10 08:08 | disposition home or self-care (01) ==
PROVIDERS: PCP Emergency Medicine; Visit Provider Surgery
DX: R11.10 Vomiting, unspecified (principal)
CPT/HCPCS: 76705; 76830; 76856

== ENCOUNTER 2024-04-20 09:10 | Outpatient (CLI) | payer OTHER, SELFPAY ==
--- NOTE | ~2024-04-20 | XR_ITS ---
EXAMINATION: XR UGI water soluble w sbs DATE: 04/20/2024 10:39 INDICATION: Vomiting, unspecified. TECHNIQUE: The patient drank water-soluble contrast. Fluoroscopy of the esophagus, stomach, and small bowel was performed. Fluoroscopy exposure time was 0.8 minutes. Radiographs of the abdomen were obta ined. The total number of images was 507. COMPARISON: CT abdomen and pelvis 02/04/2024 FINDINGS: UPPER GASTROINTESTINAL SERIES: There is no mass or stricture of the esophagus. Esophageal motility is normal. There is a small slidi ng hiatal hernia. The stomach shows a normal folding pattern. SMALL BOWEL SERIES: The small bowel shows a normal folding pattern. Specifically, the terminal ileum is normal. Transit t tyrese to the colon was 45 minutes. IMPRESSION: 1. Small sliding hiatal hernia. 2. Normal small bowel series. Reviewed, dictated and finalized at location A. MAKER
== END 2024-04-20 09:11 | disposition home or self-care (01) ==
PROVIDERS: PCP Emergency Medicine; Visit Provider Surgery
DX: R11.10 Vomiting, unspecified (principal); K44.9 Diaphragmatic hernia without obstruction or gangrene
CPT/HCPCS: 74240; 74248

== ENCOUNTER 2024-04-27 08:04 | Outpatient (CLI) | payer OTHER, SELFPAY ==
--- NOTE | ~2024-04-27 | XR_ITS ---
EXAMINATION: XR_ENEMABAC_CR DATE: 04/27/2024 10:07 INDICATION: Vomiting TECHNIQUE: A type disk quality control supervisor radiograph was obtained. A catheter was inserted into the patient's rectum. Contra st was infused by gravity. Gas was infused by hand pump. A total of 14 fluoroscopic spot images and 1 3 conventional radiographs were obtained. Fluoroscopy exposure time was 2.1 minutes. Total DAP was 22 7.77 Gycm^2 COMPARISON: CT dated 02/04/2024 FINDINGS: Gas and contrast filled the colon to the cecum. No evident strictures, polyps/masses or other mucosal irregularities. IMPRESSION: 1. Normal double contrast enema. Reviewed, dictated and finalized at location A. ROLS OPERATOR MOLDED GOODS
--- OUTSIDE RECORDS SUMMARY | 2024-04-30 11:46 | XMS_ITS | Clinical Summary ---
Author Organization [facility] Address [address] [place] [address] Care Team Providers Care Parking Cashier Name Role Phone Jad Salcedo MD Unavailable [phone] Source Comments [facility],non-owned Affiliates and Associated Physician Practices is amultiple site organization consisting of ambulatory clinics and hospital sitesin [place], [place], [place] and [place]. This disclosure is being madepursuant to the Care Everywhere program and may not contain all information available regarding this patient. Last updated 17.[employer] Allergies No known active allergies Medications * Be aware that medications may not be up to date on this document. Alwaysverify current medications with the patient. Medication Sig Dispensed Refills Start Date End Date Status famotidine (PEPCID) 20 MG tablet Take 1 Tab by mouth 2 times daily. 90 Tab 3 09/17/2012 Active Doxylamine-Pyrido xine (DICLEGIS) 10-10 MG TBEC Take 1 Tab by mouth once daily. 30 Tab 6 10/01/2012 Active methylPREDNISolon e (MEDROL) 16 MG tablet Take 1 Tab by mouth 3 times daily. 21 Tab 0 10/16/2012 Active metoclopramide (REGLAN) 10 MG tablet Take 1 Tab by mouth every 6 hours. 90 Tab 1 10/16/2012 Active promethazine (PHENERGAN) 25 MG tablet Take 1 Tab by mouth every 6 hours as needed for Nausea/Vomiting. 28 Tab 3 10/16/2012 Active promethazine (PHENERGAN) 25 MG suppository Insert 1 Suppository into the rectum every 6 hours as needed for Nausea/Vomiting. 12 Suppository 5 10/16/2012 Active Active Problems Patient Care Coordination No te Formatting of this note migh t be different from the original. 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 Encounters Date Type Department Care Team Description 02/07/2024 Transcribe Orders [facility] - Centralized Scheduling [address] [place] [id number] Shola Mark MD Pain in left ankle and joints of left foot from Last 3 Months Social History Tobacco Use Types Packs/Day Years Used Date Smoking Tobacco: Former Cigarettes Smokeless Tobacco: Never Tobacco Cessation:Counseling Given: Yes Alcohol Use Standard Drinks/Week Comments No 0 (1 standard drink = 0.6 oz pur e alcohol) Sex and Gender Information Value Date Recorded Sex Assigned at Not on file Gender Identity Not on file Sexual Orientation Not on file Last Filed Vital Signs Vital Sign Reading Time Taken Comments Blood Pressure 104/72 11/20/2012 9:45 AM CDT Pulse 84 10/16/2012 3:57 PM CDT Temperature 36.6 ??C (97.9 ??F) 10/16/2012 3:57 PM CD T Respiratory Rate 18 10/16/2012 3:57 PM CDT Oxygen Saturation 100% 10/16/2012 3:57 PM CDT Inhaled Oxygen Concentration - - Weight 71.7 kg (158 lb) 11/20/2012 9:45 AM CDT Height 162.6 cm (5' 4 ) 11/20/2012 9:50 AM CDT Body Mass Index 27.12 10/15/2012 11:07 PM CDT Plan of Treatment Health Maintenance Due Date Last Done Comments LIPID TESTING 1981 MAMMOGRAM 1981 PAP SMEAR 1981 HIV SCREENING 1996 HEPATITIS C SCREENING 05/15/1999 DTAP/TDAP/TD VACCINES (1 - Tdap) 2000 HEPATITIS B VACCINE (1 of 3 - 19+ 3-dose series) 2000 COVID-19 VACCINE (1 - 2023-2 5 season) 2023 INFLUENZA VACCINE (#1) 2023 DEPRESSION SCREENING 04/08/2024 ZOSTER VACCINE (1 of 2) 2031 HIB VACCINE Aged Out No longer eligi ble based on patient's age to complete this topic HPV VACCINE Aged Out No longer eligi ble based on patient's age to complete this topic MENINGOCOCCAL (Group B) VACCINE Aged Out No longer eligible based on patient's age to complete this topic MENINGOCOCCAL VACCINE Aged Out No miranda true eligible based on patient's age to complete this topic PNEUMOCOCCAL VACCINE Aged Out No long er eligible based on patient's age to complete this topic Advance Directives * FULL RESUSCITATION (Latest Code Status on File) Date Activated Date Inactivated Comments 10/15/2012 10:40 PM 10/16/2012 6:40 PM Care Teams Parking Cashier Relationship Specialty Start Date End Date Harshad-Jad Wayne MD Obstetrics and Gynecology 11/20/12
--- OUTSIDE RECORDS SUMMARY | 2024-04-30 11:46 | XMS_ITS | Referral Summary ---
Author Organization [facility] [address] [facility] Address [address] [place] [address] Care Team Providers Care Conditioning Room Worker Name Role Phone Shola Makr MD Primary Care Provider [phone] Encounters Date Type Department Care Team Description 04/21/2024 10:00 AM MILLING GENERAL SUPERINTENDENT Therapy [facility] OP Physical Therapy [address] [place] [id number] Anastacia Reyna, FEATHER SHAPER Chronic low back pain, unspecified back pain laterality, unspecified whether sciatica present (Primary Dx) 04/15/2024 Documentation [facility] OP Physical Therapy [address] [place] [id number] Shannan Burnette, FEATHER SHAPER 04/03/2024 10:45 AM MILLING GENERAL SUPERINTENDENT Therapy [facility] OP Physical Therapy [address] [place] [phone] Mireille Kaminski, FEATHER SHAPER Chronic low back pain, unspecified back pain laterality, unspecified whether sciatica present (Primary Dx) 03/26/2024 9:15 AM M[employer]ING GENERAL SUPERINTENDENT Therapy [facility] OP Physical Therapy [address] [place] [id number] Jazmín Mcclellan, FEATHER SHAPER Chronic low back pain, unspecified back pain laterality, unspecified whether sciatica present (Primary Dx) 03/20/2024 Plan of Care Documentation [facility] OP Physical Therapy [address] [place] [id number] 03/20/2024 9:15 AM M[employer]ING GENERAL SUPERINTENDENT Therapy [facility] OP Physical Therapy [address] [address] Hair, Allyson, PT Chronic low back pain, unspecified back pain laterality, unspecified whether sciatica present 01/29/2024 12:13 PM CDT - 01/29/2024 2:44 PM CDT Emergency [facility] Emergency Department [address] [place] [address] Leann Holman MD Discharge Disposition: Left without being seen from Last 3 Months Allergies Active Allergy Reactions Criticality Noted Date Comments Amoxicillin Rash Medium 05/13/2018 yeast, swelling vaginal area and rash on body Medications traMADoL (ULTRAM) 50 mg tablet TAKE 1 TABLET BY MOUTH EVERY 6 HOURS 11/24/2020 Active naproxen (NAPROSYN) 500 mg tablet Take 500 mg by mouth 12/22/2020 Active methylPREDNISol one (Medrol, Ayo,) 4 mg DosepackIndicat ions:De Quervain's disease (radial styloid tenosynovitis) Take as directed on package 1 packet 02/26/2022 Active Active Problems Problem Noted Date Diagnosed Date Right hand pain 02/27/2022 Trigger finger of right thumb 02/27/2022 Acute pain of left wrist 01/02/2021 De Quervain's disease (radial styloid tenosynovi tis) 01/02/2021 Hyperemesis gravidarum 11/10/2012 Overview (01/02/2021): 40lb weight lost this Now on zofran pump 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 (01/02/2021): +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 Supervision of other high ri sk pregnancies, unspecified trimester 09/15/2012 Overview (01/02/2021): Datinwk doc US (per ACOG) PNL: O+/I/-/- Ab: neg HIV: neg H/H/Plt: 13.0/40.2/372 UDS: neg on 05/02, +amphetamine on 07/31 QS: neg CF: neg Pap: neg 05/02/12 Gc/Chl: neg UCx: mixed tolu 28wk Labs GCT: RPR: H/H/Plt: GBS: Breast/Bottle Family Planning: Social History Tobacco Use Types Packs/Day Years Used Date Smoking Tobacco: Never Smokeless Tobacco: Never Personal Safety Answer Date Recorded Have you ever been in or are you currently in a harmful physical or emotional relationship or is someone making you feel afraid or unsafe? Denies 01/29/2024 Comments Unknown Sex and Gender Information Value Date Recorded Sex Assigned at Not on file Legal Sex Female 3:42 AM MILLING GENERAL SUPERINTENDENT Gender Identity Not on file Sexual Orientation Not on file Last Filed Vital Signs Vital Sign Reading Time Taken Comments Blood Pressure 125/87 01/29/2024 10:25 AM CDT Pulse 83 01/29/2024 10:25 AM CDT Temperature 36.2 ??C (97.2 ??F) 01/29/2024 10:25 AM C DT Respiratory Rate 18 01/29/2024 10:25 AM CDT Oxygen Saturation 98% 01/29/2024 10:25 AM CDT Inhaled Oxygen Concentration - - Weight 90.7 kg (200 lb) 01/29/2024 10:25 AM CDT Height 162.6 cm (5' 4 ) 01/29/2024 10:25 AM CDT Body Mass Index 34.33 01/29/2024 10:25 AM CDT Plan of Treatment Not on file Procedures Procedure Name Priority Date/Time Associated Diagnosis Comments EGFR STAT 01/29/2024 11:09 AM CDT DIFFERENTIAL AUTO STAT 01/29/2024 11: 09 AM CDT COMPREHENSIVE METABOLIC PANEL STAT 01/29/2024 11:09 AM CDT CBC WITH AUTO DIFFERENTIAL STAT 01/29/2024 11:09 AM CDT from Last 3 Months Results * eGFR (01/29/2024 11:09 AM CDT) eGFR 90 >=60 mL/min/1. 73 m2 Comment: Interpretive Data Reference Interval Normal ?>/= 90 mL/min/1.73m2 Mildly decreased* ? 60 - 89 mL/min/1.73m2 Mildly to moderately decreased ?45 - 59 mL/min/1.73m2 Moderately to severely decreased ??30 - 44 mL/min/1.73m2 Severely decreased ?15 - 29 mL/min/1.73m2 Kidney Failure ?< 15 ??mL/min/1.73m2 *Relative to young adult level Estimated glomerular filtration rate is determined by the 2020 CKD-EPI equation recommended by the National Kid[employer] (A Unifying Approach to GFR Estimation: Recommendations of the NKF-ASK Task Force on Reassessing the Inclusion of Race in Diagnosing Kidney Disease, JASN 2020). The CKD-EPI equation should not be used for patients with unstable renal function and has not been validated in children and those over 70. Current interpretive data was last reviewed 2021. Blood 01/29/2024 11:0 9 AM CDT 01/29/2024 11:33 AM CDT us Leann Holman MD LAB BLOOD ORDERABLES Final R esult [facility] Department of [place] [address] * (ABNORMAL) Differential, auto (01/29/2024 11:09 AM CDT) Neutrophil abs 6.7(H) 1.5 - 6.5 K/cumm Imm gran abs 0.0 0.0 - 0.1 K/cumm [facility] Lymphocyte abs 2.6 0.8 - 3.3 K/cumm [facility] Monocyte abs 1.1(H) 0.2 - 0.8 K/cumm [facility] Eosinophil abs 0.1 0.0 - 0.5 K/cumm [facility] Basophil abs 0.0 0.0 - 0.1 K/cumm [facility] Neutrophil pct 63.5 % [facility] Comment: Interpretive Data Percent cell count reference ranges are not reported, since discordance with absolute values may lead to misinterpretation of CBC data. Current Interpretive Data was last revised on 2017. Imm gran pct 0.4 % [facility] Comment: Interpretive Data Percent cell count reference ranges are not reported, since discordance with absolute values may lead to misinterpretation of CBC data. Current Interpretive Data was last revised on 2017. Lymphocyte pct 24.2 % [facility] Comment: Interpretive Data Percent cell count reference ranges are not reported, since discordance with absolute values may lead to misinterpretation of CBC data. Current Interpretive Data was last revised on 2017. Monocyte pct 10.3 % [facility] Comment: Interpretive Data Percent cell count reference ranges are not reported, since discordance with absolute values may lead to misinterpretation of CBC data. Current Interpretive Data was last revised on 2017. Eosinophil pct 1.2 % [facility] Comment: Interpretive Data Percent cell count reference ranges are not reported, since discordance with absolute values may lead to misinterpretation of CBC data. Current Interpretive Data was last revised on 2017. Basophil pct 0.4 % [facility] Comment: Interpretive Data Percent cell count reference ranges are not reported, since discordance with absolute values may lead to misinterpretation of CBC data. Current Interpretive Data was last revised on 2017. Blood 01/29/2024 11:0 9 AM CDT 01/29/2024 11:33 AM CDT us Leann Holman MD LAB BLOOD ORDERABLES [facility] [place] [address] * (ABNORMAL) CBC with auto differential (01/29/2024 11:09 AM CDT) [facility] WBC 10.5(H) 3.8 - 9.9 K/cumm Hgb 11.9 11.9 - 15.5 g/dL [facility] Hct 36.9 35.6 - 45.5 % [facility] Plt 346 150 - 400 K/cumm [facility] MPV 9.2 9.1 - 12.3 fL [facility] RBC 4.37 3.90 - 5.20 M/cumm [facility] MCV 84.4 81.3 - 96.4 fL [facility] MCH 27.2 27.1 - 33.3 pg [facility] MCHC 32.2(L) 32.3 - 35.7 g/dL [facility] RDW CV 14.5 11.1 - 14.9 % [facility] RDW SD 44.6 35.7 - 48.1 fL [facility] NRBC abs 0.00 0.00 - 0.01 K/cumm [facility] Blood (Blood, Venous) 01/29/2024 11:09 AM CDT 01/29/2024 11:33 AM CDT us Leann Holman MD LAB BLOOD ORDERABLES Final R esult [facility] [place] [address] * Comprehensive metabolic panel (01/29/2024 11:09 AM CDT) [facility] Sodium 140 135 - 145 mmol/L Potassium, pl 3.5 3.3 - 4.9 mmol/L [facility] Chloride 105 97 - 110 mmol/L [facility] CO2 25 22 - 32 mmol/L [facility] Anion gap 10 2 - 15 mmol/L [facility] BUN 6 6 - 25 mg/dL [facility] Creatinine 0.83 0.60 - 1.10 mg/dL [facility] Glucose 96 70 - 199 mg/dL [facility] Comment: Interpretive Data Fasting glucose >/= 126 mg/dl is diagnostic for diabetes. ?? Fasting is defined as no caloric intake for at least 8 hours. Fasting glucose between 100 mg/dl to 125 mg/dl is diagnostic of prediabetes. In a patient with classic symptoms of hyperglycemia or hyperglycemic crisis, a random glucose >/= 200 mg/dl is diagnostic for diabetes. In the absence of unequivocal hyperglycemia, results should be confirmed by repeat testing. The classification and Diagnosis of Diabetes Diabetes Care 2021; 46: S19-S40. Current interpretive data was last revised 2022. Calcium 9.0 8.5 - 10.3 mg/dL [facility] Bilirubin, total 0.3 0.1 - 1.2 mg/dL [facility] Protein, pl 6.7 6.5 - 8.5 g/dL [facility] Albumin 3.9 3.5 - 5.0 g/dL [facility] Alk phos 65 40 - 130 Units/L [facility] ALT 16 7 - 45 Units/L [facility] AST 14 10 - 45 Units/L [facility] Blood (Blood, Venous) 01/29/2024 11:09 AM CDT 01/29/2024 11:33 AM CDT us Leann Holman MD LAB BLOOD ORDERABLES Final R esult [facility] [place] [address] from Last 3 Months Insurance [facility] Care Teams Conditioning Room Worker Relationship Specialty Start Date End Date Shola Mark MD [id number] [address] PCP - General Emergency Medicine 12/07/20
--- OUTSIDE RECORDS SUMMARY | 2024-04-30 11:46 | XMS_ITS | Patient Health Summary ---
Author Organization [facility] [employer] Address [address] [place] [address] Care Team Providers Care Wind [employer] Operations Manager Name Role Phone Jad Salcedo MD Unavailable [phone] Note from [facility] [employer] [facility],non-owned Affiliates and Associated Physician Practices is amultiple site organization consisting of ambulatory clinics and hospital sitesin [place], [place], [place] and [place]. This disclosure is being madepursuant to the Care Everywhere program and may not contain all information available regarding this patient. Last updated 17.[facility] [employer] Allergies No known active allergies Medications * Be aware that medications may not be up to date on this document. Alwaysverify current medications with the patient. * famotidine (PEPCID) 20 MG tablet(Started 09/17/2012) Take 1 Tab by mouth 2 times daily. 3 refills left * Doxylamine-Pyridoxine (DICLEGIS) 10-10 MG TBEC(Started 10/01/2012) Take 1 Tab by mouth once daily. 6 refills left * methylPREDNISolone (MEDROL) 16 MG tablet(Started 10/16/2012) Take 1 Tab by mouth 3 times daily. * metoclopramide (REGLAN) 10 MG tablet(Started 10/16/2012) Take 1 Tab by mouth every 6 hours. 1 refill left * promethazine (PHENERGAN) 25 MG tablet(Started 10/16/2012) Take 1 Tab by mouth every 6 hours as needed for Nausea/Vomiting. 3 refills left * promethazine (PHENERGAN) 25 MG suppository(Started 10/16/2012) Insert 1 Suppository into the rectum every 6 hours as needed for Nausea/Vomiting. 5 refills left Active Problems Problem Noted Date Diagnosed Date Hyperemesis gravidarum 11/10/2012 Supervision of other high-risk 013 HSV (herpes simplex virus) infection 09/15/2012 Social History Tobacco Use Types Packs/Day Years [...] Mass Index 27.12 10/15/2012 11:07 PM CDT Procedures * GLUCOSE PROTEIN KETONE URINE - POINT OF CAR(Performed 11/20/2012) * GLUCOSE PROTEIN KETONE URINE - POINT OF CAR(Performed 11/10/2012) * BIOPHYSICAL PROFILE W NST(Performed 11/10/2012) Performed for Supervision of other high-risk (HCC) * GLUCOSE PROTEIN KETONE URINE - POINT OF CAR(Performed 10/30/2012) * SONOGRAM - LIMITED(Performed 10/27/2012) * BIOPHYSICAL PROFILE W NST(Performed 10/27/2012) Performed for Supervision of other high-risk (HCC) * LAB RESULTS ORDER(Performed 10/17/2012) * BLOOD TYPE VERIFICATION(Performed 10/16/2012) * TYPE + SCREEN PANEL(Performed 10/15/2012) Performed for Supervision of other high-risk (HCC) * CBC W AUTO DIFFERENTIAL(Performed 10/15/2012) Performed for Supervision of other high-risk (HCC) * COMPREHENSIVE METABOLIC PANEL(Performed 10/15/2012) Performed for Supervision of other high-risk (HCC), HSV (herpes simplex virus) infection * URINALYSIS REFLEX MICROSCOPIC REFLEX CULTURE(Performed 10/15/2012) Performed for Supervision of other high-risk (HCC), HSV (herpes simplex virus) infection * URINE MICROSCOPIC ONLY REFLEX TO CULTURE(Performed 10/15/2012) Performed for Supervision of other high-risk (HCC), HSV (herpes simplex virus) infection * CULTURE URINE(Performed 10/15/2012) Performed for Supervision of other high-risk (HCC), HSV (herpes simplex virus) infection * GLUCOSE - POINT OF CARE(Performed 10/15/2012) * GLUCOSE PROTEIN KETONE URINE - POINT OF CAR(Performed 10/15/2012) * SONOGRAM - COMPLETE(Performed 10/15/2012) Performed for Hyperemesis complicating , antepartum (HCC), Supervision of other high-risk (HCC) * GLUCOSE PROTEIN KETONE URINE - POINT OF CAR(Performed 10/01/2012) * SONOGRAM - COMPLETE(Performed 09/17/2012) * GLUCOSE PROTEIN KETONE URINE - POINT OF CAR(Performed 09/17/2012) Results * GLUCOSE PROTEIN KETONE URINE - POINT OF CAR (11/20/2012 9:53 AM CDT) Only the most recent of6 resultswithin the time period is included. Glucose UA neg Negative [facility] Protein UA neg Negative [facility] Ketone UA 2+ Negative [facility] QC Verified yes Yes [facility] POC T TESTING Urine specimen (specimen) URINE / Unknown 11/20/2012 9:53 AM CDT Francis Arias MD LAB - POINT O F CARE ORDERABLES [facility] [address] [place] [address] * BIOPHYSICAL PROFILE W NST (11/10/2012 8:17 AM CDT) Only the most recent of2 resultswithin the time period is included. Anatomical Region Laterality Modality Other 11/10/2012 8:17 AM CDT Narrative 11/11/2012 8:54 AM CDT ? [facility] ?PHONE: ??FAX: Pat. Name: ?MIGUEL A CUTLER Pat. No: ?[id number] Study Date: ?? 11/10/2012 ??8:17am REY, Age: ? 1980, 32 Pregnancies: ?? 2, Para 1 LMP: ?Unknown GA by [facility]: ?34w4d GA by US: ? 34w0d GA Selected: ??34w4d (From First S) MARCI: ?12/18/2012 Referring MD: Jad Salcedo MD/[facility] [employer] Installer: ??Allyson Andrews RDMS Hist/Ind: ? Hyperemesis MEASUREMENTS & AGE ? GROWTH EVALUATION Measurement ??GA ? Range ? Srce %for GA Ratios ----- ---- ------- BPD ??8.1 cm 32w5d (96p4i-27t1x) Hadl BPD 22% FL/BPD 0.82 (0.71 - 0.87) HC ??30.7 cm 34w1d (74k1k-81g0s) Hadl HC ??44% FL/AC ??0.23 (0.20 - 0.24) AC ??29.6 cm 33w4d (89o2h-38i5n) Hadl AC ??36% HC/AC ??1.03 (0.94 - 1.13) FL ?? 6.7 cm 34w3d (47c3c-98l6g) Hadl FL ??48% CI ? 0.72 (0.70 - 0.86) HL ?? 6.1 cm 35w1d (25y5w-62m3e) Edy HL ??60% GA for sonogram 34w0d (93t3u-90x0l) ?? Weight Estimate: based on (HL,BPD,HC,AC,FL) Avg ? Weight: 2282 gm (1402-5698) Hadlo ? : 5lbs, 0oz ? Normal: 2340 gm (1784- 3000) Brenn ? Wt% ? 46% for 34.6 wks Heart Rate: 140.0 bpm Amniotic Fluid Index: 11.5 (08.0-24.9) CLINICAL SUMMARY Study Number: ??4 A deleon fetus is identified in cephalic presentation. ??The measurements today are consistent with appropriate growth compared to previous examination. ?The amniotic fluid volume is within normal limits. ??The placenta is posterior, Grade 2. TESTING The Biophysical profile score is 8/8. IMPRESSION: ?? Single, live, IUP at 34w4d, normal growth/AF volume Reassuring BPP (NST was not performed) RECOMMEND: ?? Follow up ultrasound as clinically indicated. Thank you for allowing us the opportunity to care for your patient. Yomaira Tejada MD <Electronic Signature> ??11/11/2012 08:54am Martha Kelly MD [facility] ORDERABLES * SONOGRAM - LIMITED (10/27/2012 8:41 AM CDT) Anatomical Region Laterality Modality Other 10/27/2012 8:41 AM CDT Narrative 10/27/2012 10:14 AM CDT ? [facility] ? [facility] ?PHONE: ??FAX: Pat. Name: ?MIGUEL A CUTLER Pat. No: ?[id number] Study Date: ?? 10/27/2012 ??8:41am , Age: ? 1980, 32 Pregnancies: ?? 2, Para 1 LMP: ?Unknown GA by 1st: ?32w4d GA Selected: ??32w4d (From First S) MARCI: ?12/18/2012 Referring MD: Jad Salcedo MD/[facility] [employer] Installer: ??Allyson Andrews RDMS Hist/Ind: ? Hyperemeisis Heart Rate: 130.0 bpm Amniotic Fluid Index: 10.1 (08.4-24.4) CLINICAL SUMMARY Study Number: 3 (2 of2) A deleon fetus is identified in cephalic presentation. ??The placenta is posterior, Grade 1. ??The amniotic fluid volume is within normal limits. ??No major malformations are seen. IMPRESSION: ?? Single, live, IUP at 32w4d RECOMMEND: ?? Follow up ultrasound as clinically indicated. see other chart for full impression/recommendation Thank you for allowing us the opportunity to care for your patient. Tomas Alanis MD <Electronic Signature> ??10/27/2012 10:14am Jj Og MD [facility] ORDERABLES * LAB RESULTS ORDER (10/17/2012 8:59 PM CDT) Narrative 10/17/2012 8:59 PM CDT Procedure Note Document, Scanned - 10/17/2012 8:59 PM CDT Scanned Document LAB - THERAPEUTIC DR FATIMA MONITORING ORDERABLES * BLOOD TYPE VERIFICATION (10/16/2012 5:40 AM CDT) ABO O 10/16/2012 6:26 AM CDT [facility] BLOOD BANK LAB Rh Type Positive 10/16/2012 6:26 AM CDT [facility] BLOOD BANK LAB Miscellaneous samples (specimen) BLOOD SPECIMEN / Unknown Lab Venipuncture / Unknown 10/16/2012 5:40 AM CDT 10/16/2012 5:53 AM CDT Sari Carl MD LAB - BLOOD BANK ORD ERABLES Performing Organization Address City/[facility]/ZIP Co de Phone Number [facility] BLOOD BANK LAB * TYPE + SCREEN PANEL (10/15/2012 10:13 PM CDT) ABO O 10/15/2012 11:25 PM CDT [facility] BLOOD BANK LAB Rh Type Positive 10/15/2012 11:25 PM CDT [facility] BLOOD BANK LAB Antibody Screen Negative 3 11:25 PM CDT [facility] BLOOD BANK LAB Comment:No historical blood type. Retype required. Miscellaneous samples (specimen) BLOOD SPECIMEN / Unknown Venipuncture / Unknown 10/15/2012 10:13 PM CDT 10/15/2012 10:18 PM CDT Cordelia Mijares MD LAB - BLOOD BANK ORDERABLES Performing Organization Address City/[facility] Co de Phone Number [facility] BLOOD [facility] * (ABNORMAL) CBC W AUTO DIFFERENTIAL (10/15/2012 10:13 PM CDT) WBC 9.6 4.4 - 10.7 x10^9/L 10/15/2012 10:26 PM CDT [facility] Comment: RBC 4.06 3.80 - 5.20 x10^12/L 10/15/2012 10:26 PM CDT [facility] Comment: Hemoglobin 11.2(L) 12.0 - 15.6 g/dL 10/15/2012 10:26 PM CDT [facility] Comment: Hematocrit 33.2(L) 35.9 - 45.5 % 10/15/2012 10:26 PM CDT [facility] Comment: MCV 81.8 80.7 - 98.3 fl 10/15/2012 10:26 PM CDT [facility] Comment: MCH 27.6 26.7 - 34.0 pg 10/15/2012 10:26 PM T [facility] Comment: MCHC 33.7 30.8 - 35.9 gm/dL 10/15/2012 10:26 PM T [facility] Comment: Platelet Count 374 153 - 416 x10^9/L 10/15/2012 10:26 PM T [facility] Comment: RDW-CV 14.5 12.1 - 14.9 % 10/15/2012 10:26 PM T [facility] Comment: MPV 9.9 9.4 - 12.9 fl 10/15/2012 10:26 PM T [facility] Comment: Neutrophils % 60 44 - 73 % 10/15/2012 10:26 PM T [facility] Comment: Lymphocytes % 28 20 - 43 % 10/15/2012 10:26 PM T [facility] Comment: Monocytes % 11 5 - 13 % 10/15/2012 10:26 PM T [facility] Comment: Eosinophils % 1 0 - 6 % 10/15/2012 10:26 PM T [facility] Comment: Basophils % 0 0 - 2 % 10/15/2012 10:26 PM T [facility] Comment: Neutrophil Absolute 5.73 2.01 - 7.14 x10^9/L 10/15/2012 10:26 PM T [facility] Comment: Lymphocytes Absolute 2.71 1.07 - 3.94 x10^9/L 10/15/2012 10:26 PM T [facility] Comment: Monocytes Absolute 1.03 0.26 - 1.07 x10^9/L 10/15/2012 10:26 PM T [facility] Comment: Eosinophils Absolute 0.10 0 - 0.47 x10^9/L 10/15/2012 10:26 PM T [facility] Comment: Basophils Absolute 0.02 0 - 0.08 x10^9/L 10/15/2012 10:26 PM T [facility] Comment: Blood specimen (specimen) BLOOD SPECIMEN / Unknown Venipuncture / Unknown 10/15/2012 10:13 PM CDT 10/15/2012 10:18 PM CDT Cordelia Mijares MD LAB - HEMATOLOGY ORDERABLES [facility] [address] [place] [address] * (ABNORMAL) COMPREHENSIVE METABOLIC PANEL (10/15/2012 10:13 PM CDT) Glucose 51(L) 74 - 106 mg/dL 10/15/2012 10:37 PM CDT [facility] Sodium 142 136 - 145 mmol/L 10/15/2012 10:37 PM CDT [facility] Potassium 4.1 3.5 - 5.1 mmol/L 10/15/2012 10:37 PM CDT [facility] Chloride 106 98 - 107 mmol/L 10/15/2012 10:37 PM CDT [facility] CO2 22 22 - 31 mmol/L 10/15/2012 10:37 PM CDT [facility] Calcium 9.6 8.5 - 10.1 mg/dL 10/15/2012 10:37 PM CDT [facility] Anion Gap 14 5 - 15 mmol/L 10/15/2012 10:37 PM CDT [facility] BUN 4(L) 7 - 21 mg/dL 10/15/2012 10:37 PM CDT [facility] Creatinine 0.37(L) 0.50 - 1.30 mg/dL 10/15/2012 10:37 PM CDT [facility] eGFR by MDRD >60 >60 ml/min/1.7 3m2 10/15/2012 10:37 PM CDT [facility] eGFR by MDRD >60 >60 ml/min/1.7 3m2 10/15/2012 10:37 PM CDT [facility] Alkaline Phosphatase 95 38 - 126 U/L 10/15/2012 10:37 PM CDT [facility] ALT 16 12 - 78 U/L 10/15/2012 10:37 PM CDT [facility] AST 13 5 - 40 U/L 10/15/2012 10:37 PM CDT [facility] Protein Total 7.5 6.4 - 8.2 gm/dL 10/15/2012 10:37 PM CDT [facility] Albumin 3.0(L) 3.4 - 5.0 gm/dL 10/15/2012 10:37 PM CDT [facility] Bilirubin Total 0.4 0.2 - 1.0 mg/dL 10/15/2012 10:37 PM CDT [facility] Blood specimen (specimen) BLOOD SPECIMEN / Unknown Venipuncture / Unknown 10/15/2012 10:13 PM CDT 10/15/2012 10:18 PM CDT Cordelia Mijares MD LAB - CHEMISTRY ORDERABLES [facility] [address] [place] [address] * (ABNORMAL) URINALYSIS ROUTINE W/REFLEX TO CULTURE (10/15/2012 6:58 PM CDT) Color UA Kathryn(A) Straw, Yellow, Dark Yellow 10/15/2012 7:20 PM CDT [facility] Clarity UA Cloudy 10/15/2012 7:20 PM CDT [facility] Specific [place] UA 1.027 1.005 - 1.030 10/15/2012 7:20 PM CDT [facility] pH UA 7.5 5.0 - 8.0 10/15/2012 7:20 PM CDT [facility] Protein UA Trace(A) Negative 10/15/2012 7:20 PM CDT [facility] Blood UA Negative Negative 10/15/2012 7:20 PM CDT [facility] Leukocyte UA 2+(A) Negative 10/15/2012 7:20 PM CDT [facility] Nitrite UA Negative Negative 10/15/2012 7:20 PM CDT [facility] Glucose UA Negative Negative 10/15/2012 7:20 PM CDT [facility] Ketone UA 3+(A) Negative 10/15/2012 7:20 PM CDT [facility] Bilirubin UA Negative Negative 10/15/2012 7:20 PM CDT [facility] Urobilinogen UA 1.0 0.1 - 1.0 EU/dL 10/15/2012 7:20 PM CDT [facility] WBC UA Auto 20-50(A) 0-2, 2-5 #/hpf 10/15/2012 7:20 PM CDT [facility] RBC UA Auto 2-5 0-2, 2-5 #/hpf 10/15/2012 7:20 PM CDT [facility] Epithelial Cell UA Auto 20-50(A) 0-2, 2-5 #/hpf 10/15/2012 7:20 PM CDT [facility] Bacteria UA Auto 4+(A) None seen 10/16/19 13 7:20 PM CDT [facility] Hyaline Casts UA Auto Reflex to manual(A) 0 - 2 #/lpf 10/15/2012 7:20 PM CDT [facility] Reflex Status Culture to follow 10/15/2012 7:20 PM CDT [facility] Urine specimen (specimen) URINE SPECIMEN OBTAINED BY CLEAN CATCH PROCEDURE / Unknown Collection / Unknown 10/15/2012 6:58 PM CDT 10/15/2012 7:07 PM CDT Cordelia Mijares MD LAB - URINALYSIS ORDERABLES Performing Organization Address City/[facility] Co de Phone Number [facility] [address] [place] [phone] * (ABNORMAL) URINALYSIS MICROSCOPIC ONLY W/REFLEX CULTURE (10/15/2012 6:58 PM CDT) Bacteria UA 4+(A) None Seen 10/15/2012 7:28 PM CDT [facility] Mucus UA 1+ 10/15/2012 7:28 PM CDT [facility] Hyaline Casts 5-10(A) 0 - 2 # /lpf 10/15/2012 7:28 PM CDT [facility] Urine specimen (specimen) URINE SPECIMEN OBTAINED BY CLEAN CATCH PROCEDURE / Unknown 10/15/2012 6:58 PM CDT 10/15/2012 7:07 PM CDT Narrative [facility] - 10/15/2012 7:28 PM CDT No path casts Cordelia Mijares MD LAB - URINALYSIS ORDERABLES Performing Organization Address City/[facility]/ZIP Co de Phone Number [facility] [address] [place] [phone] * CULTURE URINE (10/15/2012 6:58 PM CDT) Culture 10,000-50,000 CFU/mL normal urogenital tolu 10/17/2012 10:40 AM CDT [facility] Urine specimen (specimen) URINE SPECIMEN OBTAINED BY CLEAN CATCH PROCEDURE / Unknown 10/15/2012 6:58 PM CDT 10/15/2012 7:07 PM CDT Cordelia Mijares MD LAB - MICROBIOLO GY ORDERABLES [facility] [address] [place] [address] * GLUCOSE - POINT OF CARE (10/15/2012 6:56 PM CDT) Glucose WB/POC 90 70 - 106 mg/dL 10/15/2012 6:58 PM CDT [facility] Blood specimen (specimen) BLOOD SPECIMEN / Unknown 10/15/2012 6:56 PM CDT 10/15/2012 6:58 PM CDT Narrative [facility] - 10/15/2012 6:58 PM CDT NOTIFIED CAREGIVER Sari Carl MD LAB - POINT OF CARE ORDERABLES Performing Organization Address City/[facility] Co de Phone Number [facility] [address] [place] [address] * SONOGRAM - COMPLETE (10/15/2012 2:27 PM CDT) Only the most recent of2 resultswithin the time period is included. Anatomical Region Laterality Modality Other 10/15/2012 2:27 PM CDT Narrative 10/15/2012 3:21 PM CDT ? [facility] ?PHONE: ??FAX: Pat. Name: ?MIGUEL A CUTLER. No: ?[id number] Study Date: ?? 10/15/2012 ??2:27pm , Age: ? 1980, 32 Pregnancies: ?? 2, Para 1 LMP: ?Unknown GA by 1st: ?30w6d GA by US: ? 30w4d GA Selected: ??30w6d (From First S) MARCI: ?12/18/2012 Referring MD: Jad Salcedo MD/[facility] [employer] Installer: ??Allyson Andrews RDMS Hist/Ind: ? Hyperemeisis MEASUREMENTS & AGE ? GROWTH EVALUATION Measurement ??GA ? Range ? Srce %for GA Ratios ----- ---- ------- BPD ??7.8 cm 31w2d (20k2f-94t2b) Hadl BPD 56% FL/BPD 0.78 (0.71 - 0.87) HC ??26.9 cm 29w2d (14r7x-38z0q) Hadl HC ??17% FL/AC ??0.25 (0.20 - 0.24* AC ??25.0 cm 29w1d (09q4m-68a0e) Hadl AC ??16% HC/AC ??1.08 (0.97 - 1.16) FL ?? 6.1 cm 31w5d (76n8q-68x4c) Hadl FL ??64% CI ? 0.84 (0.70 - 0.86) HL ?? 5.4 cm 31w4d (73b0y-46p9j) Edy HL ??63% GA for sonogram 30w4d (32x9y-19n8p) ?? Weight Estimate: based on (HL,BPD,HC,AC,FL) Avg ? Weight: 1529 gm (5640-6914) Hadlo ? : 3lbs, 5oz ? Normal: 1606 gm (1159- 2263) Brenn ? Wt% ? 43% for 30.9 wks Heart Rate: 145.0 bpm Amniotic Fluid Index: 14.2 (08.8-23.7) CLINICAL SUMMARY Study Number: ??2 A deleon fetus is identified in cephalic presentation. ??The measurements today are consistent with appropriate growth compared to previous examination. ??The MARCI selected is based on prior ultrasound examination. ??The amniotic fluid volume is within normal limits. ??The placenta is posterior, Grade 1. ??No major malformations are seen. ??The patient was advised that ultrasound does not allow detection of all structural or chromosomal abnormalities. IMPRESSION: ?? Single, live IUP at 30w6d AGA growth Normal AFV No malformations seen within the limitations of ultrasound RECOMMEND: ?? Follow up ultrasound as clinically indicated Thank you for allowing us the opportunity to care for your patient Zach Tesfaye MD <Electronic Signature> ??10/15/2012 03:21pm Sanjay Alvares MD [facility] ORDERABLES Care Teams [employer] Operations Manager Relationship Specialty Start Date End Date Colon-Jad Wayne MD Obstetrics and Gynecology 11/20/12
--- OUTSIDE RECORDS SUMMARY | 2024-04-30 11:46 | XMS_ITS | Clinical Summary ---
Author Organization [place] [id number] Address [address] [place] [address] Care Team Providers Care Principal Technical Writer Name Role Phone Shola Mark MD Primary Care Provider [phone] Allergies Active Allergy Reactions Criticality Noted Date [...] GCT: RPR: H/H/Plt: GBS: Breast/Bottle Family Planning: Encounters Date Type Department Care Team Description 04/21/2024 10:00 AM TECHNOLOGY RESOURCE TEACHER Therapy [facility] OP Physical Therapy [address] [place] [address] Anastacia Reyna, MAKE UP GIRL Chronic low back pain, unspecified back pain laterality, unspecified whether sciatica present (Primary Dx) 04/15/2024 Documentation [facility] OP Physical Therapy [address] [place] [address] Shannan Burnette, MAKE UP GIRL 04/03/2024 10:45 AM TECHNOLOGY RESOURCE TEACHER Therapy [facility] OP Physical Therapy [address] [place] [address] Mireille Kaminski, MAKE UP GIRL Chronic low back pain, unspecified back pain laterality, unspecified whether sciatica present (Primary Dx) 03/26/2024 9:15 AM TECHNOLOGY RESOURCE TEACHER Therapy [facility] OP Physical Therapy [address] [place] [address] Jazmín Mcclellan, MAKE UP GIRL Chronic low back pain, unspecified back pain laterality, unspecified whether sciatica present (Primary Dx) 03/20/2024 9:15 AM TECHNOLOGY RESOURCE TEACHER Therapy [facility] OP Physical Therapy [address] [place] [address] Hair, Allyson, PT Chronic low back pain, unspecified back pain laterality, unspecified whether sciatica present 03/20/2024 Plan of Care Documentation [facility] OP Physical Therapy [address] [address] 01/29/2024 12:13 PM CDT - 01/29/2024 2:44 PM CDT Emergency [facility] Emergency Department [address] [place] [address] Leann Holman MD Discharge Disposition: Left without being seen from Last 3 Months Surgical History Surgery Date Site/Laterality Comments UT APPENDECTOMY Appendectomy - (Added by TW Conv) SHOULDER ARTHROSCOPY Bilateral Medical History Medical History Date Comments Gastric reflux Heart beat abnormality Social History Tobacco Use Types Packs/Day Years [...] on file Legal Sex Female 3:42 AM TECHNOLOGY RESOURCE TEACHER Gender Identity Not on file Sexual Orientation Not on file Obstetrics History Last Filed Vital Signs Vital Sign Reading [...] 01/29/2024 10:25 AM CDT Plan of Treatment Health Maintenance Due Date Last Done Comments Breast Cancer Screening-Mammogram 1981 Cervical Cancer Screening 1981 Depression Screening 1981 Hepatitis C Screening 1981 Varicella Vaccines (1 of 2 - 13+ 2-dose series) 1994 Hepatitis B Screening 1999 Regular Well Visit/Exam 18-64 1999 Influenza Vaccine (#1) 2023 DTaP/Tdap/Td Vaccine (4 - Td or Tdap) 08/28/2028 08/28/2018, 05/10/2008, 07/29/1985 HPV Vaccines Aged Out No longer eligi ble based on patient's age to complete this topic Pneumococcal vaccine <65 Aged Out No longer eligible based on patient's age to complete this topic Procedures Procedure Name Priority Date/Time Associated Diagnosis [...] MD LAB BLOOD ORDERABLES Final R esult [facility] Department [place] [address] * (ABNORMAL) Differential, auto (01/29/2024 11:09 AM CDT) Neutrophil abs 6.7(H) 1.5 - 6.5 K/cumm Imm gran abs 0.0 0.0 - 0.1 K/cumm [facility] Lymphocyte abs 2.6 0.8 - 3.3 K/cumm [facility] Monocyte abs 1.1(H) 0.2 - 0.8 K/cumm [facility] Eosinophil abs 0.1 0.0 - 0.5 K/cumm [facility] Basophil abs 0.0 0.0 - 0.1 K/cumm [facility] Neutrophil pct 63.5 % [facility] Comment: Interpretive Data Percent cell count reference ranges are not reported, since discordance with absolute values may lead to misinterpretation of CBC data. Current Interpretive Data was last revised on 2017. Imm gran pct 0.4 % [facility] Comment: Interpretive Data Percent cell count reference ranges are not reported, since discordance with absolute values may lead to misinterpretation of CBC data. Current Interpretive Data was last revised on 2017. Lymphocyte pct 24.2 % [facility] Comment: Interpretive Data Percent cell count reference ranges are not reported, since discordance with absolute values may lead to misinterpretation of CBC data. Current Interpretive Data was last revised on 2017. Monocyte pct 10.3 % [facility] Comment: Interpretive Data Percent cell count reference ranges are not reported, since discordance with absolute values may lead to misinterpretation of CBC data. Current Interpretive Data was last revised on 2017. Eosinophil pct 1.2 % [facility] Comment: Interpretive Data Percent cell count reference ranges are not reported, since discordance with absolute values may lead to misinterpretation of CBC data. Current Interpretive Data was last revised on 2017. Basophil pct 0.4 % [facility] Comment: Interpretive Data Percent cell count reference ranges are not reported, since discordance with absolute values may lead to misinterpretation of CBC data. Current Interpretive Data was last revised on 2017. Blood 01/29/2024 11:0 9 AM CDT 01/29/2024 11:33 AM CDT us Leann Holman MD LAB BLOOD ORDERABLES Final R esult [facility] [place] [address] * (ABNORMAL) CBC with auto differential (01/29/2024 11:09 AM CDT) WBC 10.5(H) 3.8 - 9.9 K/cumm Hgb 11.9 11.9 - 15.5 g/dL [facility] Hct 36.9 35.6 - 45.5 % [facility] Plt 346 150 - 400 K/cumm [facility] MPV 9.2 9.1 - 12.3 fL [facility] RBC 4.37 3.90 - 5.20 M/cumm [facility] MCV 84.4 81.3 - 96.4 fL [facility] MCH 27.2 27.1 - 33.3 pg [facility] MCHC 32.2(L) 32.3 - 35.7 g/dL [facility] RDW CV 14.5 11.1 - 14.9 % [facility] RDW SD 44.6 35.7 - 48.1 fL [facility] NRBC abs 0.00 0.00 - 0.01 K/cumm [facility] Blood (Blood, Venous) 01/29/2024 11:09 AM CDT 01/29/2024 11:33 AM CDT us Leann Holman MD LAB BLOOD ORDERABLES Final R esult [facility] [place] [address] * Comprehensive metabolic panel (01/29/2024 11:09 AM CDT) Sodium 140 135 - 145 mmol/L Potassium, pl 3.5 3.3 - 4.9 mmol/L [facility] Chloride 105 97 - 110 mmol/L [facility] CO2 25 22 - 32 mmol/L [facility] Anion gap 10 2 - 15 mmol/L [facility] BUN 6 6 - 25 mg/dL [facility] Creatinine 0.83 0.60 - 1.10 mg/dL [facility] Glucose 96 70 - 199 mg/dL [facility] Comment: Interpretive Data Fasting glucose >/= 126 [...] classification and Diagnosis of Diabetes Diabetes Care 202; 46: S19-S40. Current interpretive data was last revised 2022. Calcium 9.0 8.5 - 10.3 mg/dL [facility] Bilirubin, total 0.3 0.1 - 1.2 mg/dL [facility] Protein, pl 6.7 6.5 - 8.5 g/dL [facility] Albumin 3.9 3.5 - 5.0 g/dL [facility] Alk phos 65 40 - 130 Units/L [facility] ALT 16 7 - 45 Units/L [facility] AST 14 10 - 45 Units/L [facility] Blood (Blood, Venous) 01/29/2024 11:09 AM CDT 01/29/2024 11:33 AM CDT us Leann Holman MD LAB BLOOD ORDERABLES Final R esult [facility] [place] [address] from Last 3 Months Insurance [facility] Care Teams Principal Technical Writer Relationship Specialty Start Date End Date Sohla Mark MD [address] [address] PCP - General Emergency Medicine 12/07/20
--- OUTSIDE RECORDS SUMMARY | 2024-04-30 11:46 | XMS_ITS | Clinical Summary ---
Author Organization [facility] Address [address] [place] [address]. [place], [place] [address] [place] [address] Care Team Providers Care Greensman Name Role Phone Shola Mark MD Primary Care Provider [phone] Allergies Active Allergy Reactions Criticality Noted Date Comments Amoxicillin Swelling 11/05/2023 Medications No known medications Social History Tobacco Use Types Packs/Day Years Used Date Smoking Tobacco: Never Smokeless Tobacco: Never Tobacco Cessation:Counseling Given: Not Answered Alcohol Use Standard Drinks/Week Comments Yes 0 (1 standard drink = 0.6 oz pur e alcohol) occassionally Comments No Sex and Gender Information Value Date Recorded Sex Assigned at Not on file Legal Sex Female 8:01 PM CDT Gender Identity Not on file Sexual Orientation Not on file Last Filed Vital Signs Vital Sign Reading Time Taken Comments Blood Pressure 127/94 11/05/2023 12:40 PM CDT Pulse 81 11/05/2023 12:40 PM CDT Temperature 36.7 ??C (98 ??F) 11/05/2023 12:40 PM CDT Respiratory Rate 16 11/05/2023 12:40 PM CDT Oxygen Saturation 99% 11/05/2023 12:40 PM CDT Inhaled Oxygen Concentration - - Weight 89.7 kg (197 lb 12 oz) 11/05/2023 8:53 AM CDT Height 162.6 cm (5' 4 ) 11/05/2023 11:08 AM CDT Body Mass Index 33.94 11/05/2023 8:53 AM CDT Plan of Treatment Health Maintenance Due Date Last Done Comments Cervical Cancer Screening Pa p Smear (Age 30 to 64) Every 3 Years 1981 Annual Physical 1984 Hepatitis C 1999 Hepatitis B Vaccines (1 of 3 - 19+ 3-dose series) 2000 Cervical Cancer Screening Pa p with HPV Testing (Age 30 to 64) Every 5 Years 2011 Cervical Cancer Screening wi th HPV 2011 Mammogram Screening 2021 COVID-19 Vaccine (1 - 2023-2 5 season) 2023 Influenza Adult (#1) 2024 DTaP, Tdap and Td Vaccines ( 4 - Td or Tdap) 08/28/2028 08/28/2018, 05/10/2008, 07/29/1985 HPV Vaccines Aged Out No longer eligi ble based on patient's age to complete this topic Meningococcal Vaccine Aged Out No miranda true eligible based on patient's age to complete this topic Pneumococcal Vaccine: Pediatrics (0 to 5 Years) and At-Risk Patients (6 to 64 Years) Aged Out No longer eligible b ased on patient's age to complete this topic RSV Immunizations Under 20 Months Aged Out No longer eligible b ased on patient's age to complete this topic Insurance [facility] Care Teams Greensman Relationship Specialty Start Date End Date Shola Mark MD [address] [phone] PCP - General 08/12/16
--- OUTSIDE RECORDS SUMMARY | 2024-04-30 11:46 | XMS_ITS | Encounter Summary ---
Author Organization [facility] Address [address] [facility] [address] [place] [address] Care Team Providers Care Neon Tube Bender Name Role Phone Jad Salcedo MD Unavailable [phone] Reason for Referral * Consultation (Routine) - Pending Review Specialty Diagnoses / Procedures Referred By Contadeola antoine Referred To Contact Orthopedics Diagnoses Pain in left ankle and joints of left foot Shola Mark MD [address] [address] [facility] [address] [place] [address] Referral ID Status Reason Start Date Expiration Date Visits Requested Visits Authorized [id number] Pending Review Specialty Services Required 02/07/2024 02/06/2025 1 1 Encounter Details Date Type Department Care Team (Latest Contact Info) Description 02/07/2024 Transcribe Orders [facility] - Centralized Scheduling [facility] [place] [id number] Shola Mark MD [address] [address] Pain in left ankle and joints of left foot Social History Tobacco Use Types Packs/Day Years Used Date Smoking Tobacco: Former Cigarettes Smokeless Tobacco: Never Alcohol Use Standard Drinks/Week Comments No 0 (1 standard drink = 0.6 oz pur e alcohol) Sex and Gender Information Value Date Recorded Sex Assigned at Not on file Gender Identity Not on file Sexual Orientation Not on file documented as of this encounter Plan of Treatment Scheduled Referrals Name Type Priority Associated Diagnoses Order Schedule AMB REFERRAL TO ORTHOPEDICS Outpatient Referral Routine Pain in left ankle and joints of left foot 1 Occurrences starting 02/07/2024 until 02/06/2025 documented as of this encounter Visit Diagnoses Diagnosis Pain in left ankle and joints of left foot- Primary documented in this encounter Care Teams Neon Tube Bender Relationship Specialty Start Date End Date Harshad-Jad Wayne MD Obstetrics and Gynecology 11/20/12 documented as of this encounter
--- OUTSIDE RECORDS SUMMARY | 2024-04-30 11:46 | XMS_ITS | Referral Summary ---
Author Organization [facility] Address [address] [facility] [place] [address] Care Team Providers Care Cafeteria Clerk Name Role Phone Jad Salcedo MD Unavailable [phone] Source Comments [facility],non-owned Affiliates and Associated Physician Practices is amultiple site organization consisting of ambulatory clinics and hospital sitesin [place], [place], [place] and [place]. This disclosure is being madepursuant to the Care Everywhere program and may not contain all information available regarding this patient. 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
== END 2024-04-27 08:05 | disposition home or self-care (01) ==
LOC: ANHIMG 08:05
PROVIDERS: PCP Emergency Medicine; Visit Provider Surgery
DX: R11.10 Vomiting, unspecified (principal)
CPT/HCPCS: 74280

== ENCOUNTER 2024-06-05 01:03 | Day surgery (SDC) | payer OTHER, SELFPAY ==
[2024-05-27 13:58] VITALS: BMI 36.7
[2024-06-05 06:29] VITALS: BP 123/88; PULSE 78; RESP 18; TEMP 36.1; O2SAT 99
[2024-06-05] MEDS: LACTATED RINGERS 1,000 ML 150 ML IV CONT (06:41)
--- NOTE | 2024-06-05 07:15 | WPDANESEPPF ---
Anes - Initial Pre Proc Eval Procedure: Operation Date: 06/05/24 07:30 Proposed Procedures p Colonoscopy - Jacinto Esquivel MD Date/Time: 06/05/24 07:15 Surgeon: Jacinto Esquivel MD Pre Op Diagnosis: LL quad pain, RL quad pain, change in bowel habit Patient Data Age: 44 Gender: F Height: 1.63 m Weight: 97 kg Last Vital Signs Temp 97 F L 06/05/24 06:29 Pulse 78 06/05/24 06:29 Resp 18 06/05/24 06:29 BP 123/88 06/05/24 06:29 Pulse Ox 99 06/05/24 06:29 O2 Del Method Room Air 06/05/24 06:29 Allergies Allergy/AdvReac Type Severity Reaction Status Date / Time amoxicillin Allergy Swelling Verified 06/05/24 06:26 Home Medications ?Medication ?Instructions ?Recorded ?Confirmed ?Type acetaminophen 300 mg-codeine 30 mg 1 tablet PO Q8H PRN pain 05/12/24 05/27/24 History tablet dicyclomine 10 mg capsule 10 mg PO TID PRN abdominal pain 1 05/12/24 05/27/24 Rx month #90 caps linaclotide 145 mcg capsule 145 mcg PO DAILY 1 month #30 caps 05/12/24 06/05/24 Rx (Linzess) nifedipine 30 mg tablet,extended 30 mg PO DAILY 05/12/24 06/05/24 History release rabeprazole 20 mg tablet,delayed 20 mg PO BID 1 month #60 tabs 05/12/24 06/05/24 Rx release (AcipHex) tramadol 100 mg capsule 100 mg PO .prn 05/12/24 05/27/24 History 24h,extended release(25-75) Patient hx anesthesia problems: none Family hx anesthesia problems: none Results Review: All pre-operative results and documents have been reviewed as part of the pre-operative evaluation. [facility] Past Medical History Medical History Nausea and vomiting Change in bowel habits History of migraine History of gastroesophageal reflux (GERD) Social History Social History Smoking status: Former smoker Tobacco type: e-cigarettes/vaping Additional smoking assessment comments: Vaping only Alcohol intake: current Drinks per week: 3 Substance use: never Do You Feel Safe in your Home?: Yes Lack of Transportation: No Lack of Food: Never True Current Housing: I Have Housing Concerned About Future Housing: No Difficulty Paying Gas/Electric Bills: No Difficulty Paying for Meds: No Currently Unemployed: YES Education: High School Diploma/GED Difficulty w/ Childcare or Family Care: No Spiritual care concerns: No Anes - Eval Final PreProcedure Day of Procedure 06/05/24 07:15 Patient weight: obese Lungs: normal air movement Airway: Mallampati scale class II and special considerations (Upper gold covering on tooth. ) Neurological: alert and oriented Last oral intake: >/= 8 hours ASA classification: II Emergent: no Anesthetic plan: proceed Anesthesia type and monitoring: general GIVS and standard monitoring Results Review: All pre-operative results and documents have been reviewed as part of the pre-operative evaluation. HTN, change in bowel habits, int N/V w food. Informed Consent: The patient's anesthetic plan and its attendant risks and benefits were discussed with the patient/family/POA. Questions were solicited and answers provided to the satisfaction of the patient/family/POA.
--- NOTE | 2024-06-05 07:27 | PM.IMHP ---
H&P: HPI History of Present Illness Date/Time: 06/05/24 07:27 Chief Complaint: Abdominal pain Narrative: The patient presents with lower abdominal pain radiating to the mid-abdomen, associated with altered bowel habits, specifically constipation. She denies unintentional weight loss, hematochezia, urgency, and tenesmus. She reports emesis, which provides temporary analgesia. She is referred for diagnostic colonoscopy. Review of Systems Review of Systems: All systems reviewed & are unremarkable except as noted in HPI and below PMFSH Past Medical History Medical History Nausea and vomiting Change in bowel habits History of migraine History of gastroesophageal reflux (GERD) Social History Social History Smoking status: Former smoker Tobacco type: e-cigarettes/vaping Additional smoking assessment comments: Vaping only Alcohol intake: current Drinks per week: 3 Substance use: never Do You Feel Safe in your Home?: Yes Lack of Transportation: No Lack of Food: Never True Current Housing: I Have Housing Concerned About Future Housing: No Difficulty Paying Gas/Electric Bills: No Difficulty Paying for Meds: No Currently Unemployed: YES Education: High School Diploma/GED Difficulty w/ Childcare or Family Care: No Spiritual care concerns: No Meds Home Medications and Allergies Home Medications ?Medication ?Instructions ?Recorded ?Confirmed ?Type acetaminophen 300 mg-codeine 30 mg 1 tablet PO Q8H PRN pain 05/12/24 05/27/24 History tablet dicyclomine 10 mg capsule 10 mg PO TID PRN abdominal pain 1 05/12/24 05/27/24 Rx month #90 caps linaclotide 145 mcg capsule 145 mcg PO DAILY 1 month #30 caps 05/12/24 06/05/24 Rx (Linzess) nifedipine 30 mg tablet,extended 30 mg PO DAILY 05/12/24 06/05/24 History release rabeprazole 20 mg tablet,delayed 20 mg PO BID 1 month #60 tabs 05/12/24 06/05/24 Rx release (AcipHex) tramadol 100 mg capsule 100 mg PO .prn 05/12/24 05/27/24 History 24h,extended release(25-75) Allergies Allergy/AdvReac Type Severity Reaction Status Date / Time amoxicillin Allergy Swelling Verified 06/05/24 06:26 Vital Signs Vital Signs - 24 hr 06/05/24 06:29 Temperature 97 F L Pulse Rate 78 Respiratory Rate 18 Blood Pressure 123/88 Pulse Oximetry 99 Oxygen Delivery Room Air Exam Const: General: cooperative and healthy appearing Resp: Effort & Inspection: normal respiratory effort and able to speak in complete sentences Auscultation: clear to auscultation bilaterally Cardio: Rate: regular rate Rhythm: regular rhythm GI: Inspection: normal to inspection GI Palp: No No hepatosplenomegaly present Auscultation: normal bowel sounds Rectal Exam: deferred Skin: General skin exam: normal color Psych: Appearance: grossly normal Mental Status: mental status grossly normal Assessment and Plan Assessment and plan (1) Change in bowel habits: Code(s): R19.4 - Change in bowel habit Status: Acute Assessment and Plan: The patient is deemed a good candidate for the procedure. Consent signed. Will proceed.
[2024-06-05 07:52] VITALS: BP 101/66; PULSE 72; RESP 18; O2SAT 100
[2024-06-05 07:53] LABS: BEDSIDEPREGUCG Negative (Negative)
[2024-06-05 08:02] VITALS: BP 112/74; PULSE 74; RESP 18; O2SAT 100
[2024-06-05 08:12] VITALS: BP 116/74; PULSE 73; RESP 18; O2SAT 100
== END 2024-06-05 08:31 | disposition home or self-care (01) ==
PROVIDERS: PCP Emergency Medicine; Referring Provider Nurse Practitioner Family; Visit Provider Internal Medicine Gastroenterology
PROC: 0DJD8ZZ Inspection of Lower Intestinal Tract, Via Natural or Artificial Opening Endoscopic (ICD-10-PCS; CPT 45378; principal; 2024-06-05 07:30)
DX: R10.30 Lower abdominal pain, unspecified (principal); K59.00 Constipation, unspecified; D12.0 Benign neoplasm of cecum; K21.9 Gastro-esophageal reflux disease without esophagitis; Z87.891 Personal history of nicotine dependence
CPT/HCPCS: 45385; 88305; J2704; J7120

== ENCOUNTER 2024-06-15 07:56 | Outpatient (CLI) | payer OTHER, SELFPAY ==
--- NOTE | ~2024-06-15 | NM_ITS ---
EXAM: NM gastric emptying study DATE: 06/15/2024 10:15 INDICATION: Nausea with vomiting, unspecified. TECHNIQUE: A gastric emptying study was performed using the methodology of Lorenza DELACRUZ, et al. J Nucl Med 2007; 48:568-572. The patient was given a meal consisting of 2 scrambled eggs labeled with 0.961 mCi Tc-99m sulfur colloid, 2 slices of toast, two packages of jam, and approximately 120 mL of water . Simultaneous anterior and posterior 1-min images of the abdomen were obtained with the patient supi ne at multiple time points over a total period of 4 hours. The geometric mean of anterior and posteri or views was determined, and the percentage retention was calculated for each time point. COMPARISON: None. FINDINGS: Images demonstrate activity in the stomach. The patient vomited 20 minutes after eating. IMPRESSION: 1. The patient vomited 20 minutes after eating the radiolabeled meal. Gastric emptying could not be m easured. Reviewed, dictated and finalized at location B. IMPRESSION: 1. The patient vomited 20 minutes after eating the radiolabeled meal. Gastric e mptying could not be measured.
--- OUTSIDE RECORDS SUMMARY | 2024-06-15 08:03 | XMS_ITS | Clinical Summary ---
Author Organization [facility] Address [facility] [place] [address] Care Team Providers Care Pot Holder Binder Name Role Phone Shola Mark MD Primary Care Provider Allergies Active Allergy Reactions Criticality Noted Date [...] 81 11/05/2023 12:40 PM CDT Temperature 36.7 C (98 F) 11/05/2023 12:40 PM CDT Respiratory Rate 16 [...] Date Last Done Comments Cervical Cancer Screening Julián vera Smear (Age 30 to 64) Every 3 Years 1981 Annual Physical 1984 Hepatitis C 1999 Hepatitis B Vaccines (1 of 3 - 19+ 3-dose series) 2000 Cervical Cancer Screening Pa p with HPV Testing (Age 30 to 64) Every 5 Years 2011 Cervical Cancer Screening wi th HPV 2011 Mammogram Screening 2021 COVID-19 Vaccine ( - 2023-2 5 season) 2023 Influenza Adult (#1) 2024 DTaP, Tdap and Td Vaccines ( 4 - Td or Tdap) 08/28/2028 08/28/2018, 05/10/2008, 07/29/1985 HPV Vaccines Aged Out No longer eligi ble based on patient's age to complete this topic Meningococcal B Vaccine Aged Out No l onger eligible based on patient's age to complete [...] patient's age to complete this topic Insurance [facility] Care Teams Pot Holder Binder Relationship Specialty Start Date End Date Shola Mark MD [address] [phone] PCP - General 08/12/16
--- OUTSIDE RECORDS SUMMARY | 2024-06-15 08:04 | XMS_ITS | Referral Summary ---
Author Organization [facility] [address] [facility] Address [address] [place] [address] Care Team Providers Care Copyright Manager Name Role Phone Shola Mark MD Primary Care Provider [phone] Encounters Date Type Department Care Team Description 06/03/2024 11:00 AM ANIMAL NUTRITIONIST Procedure visit [facility] Otolaryngology [address] [place] [phone] Jen Pena Sensorineural hearing loss (SNHL) of both ears (Primary Dx); Dizziness and giddiness 05/25/2024 Documentation [facility] Physical Therapy [address] [place] [address] Courtney Ross, PT 04/21/2024 10:00 AM ANIMAL NUTRITIONIST Therapy [facility] Physical Therapy [address] [place] [address] Anastacia Reyna, ARMATURE WINDER REPAIR HELPER Chronic low back pain, unspecified back pain laterality, unspecified whether sciatica present (Primary Dx) 04/15/2024 Documentation [facility] OP Physical Therapy [address] [place] [address] Shannan Burnette, ARMATURE WINDER REPAIR HELPER 04/03/2024 10:45 AM ANIMAL NUTRITIONIST Therapy [facility] Physical Therapy [address] [place] [address] Mireille Kaminski, ARMATURE WINDER REPAIR HELPER Chronic low back pain, unspecified back pain laterality, unspecified whether sciatica present (Primary Dx) 03/26/2024 9:15 AM ANIMAL NUTRITIONIST Therapy [facility] Physical Therapy [address] [place] [address] Schlich, Jazmín, ARMATURE WINDER REPAIR HELPER Chronic low back pain, unspecified back pain laterality, unspecified whether sciatica present (Primary Dx) 03/20/2024 Plan of Care Documentation [facility] OP Physical Therapy [address] [place] [address] 03/20/2024 9:15 AM ANIMAL NUTRITIONIST Therapy [facility] Physical Therapy [address] [place] [address] Hair, Allyson, PT Chronic low back pain, unspecified back pain laterality, unspecified whether sciatica present from Last 3 Months Allergies Active Allergy [...] on file Legal Sex Female 3:42 AM ANIMAL NUTRITIONIST Gender Identity Not on file Sexual Orientation Not on file Last Filed Vital Signs Vital Sign Reading Time Taken Comments Blood Pressure 125/87 01/29/2024 10:25 AM CDT Pulse 83 01/29/2024 10:25 AM CDT Temperature 36.2 C (97.2 F) 01/29/2024 10:25 AM CDT Respiratory Rate 18 01/29/2024 10:25 AM CDT Oxygen Saturation 98% 01/29/2024 10:25 AM CDT Inhaled Oxygen Concentration - - Weight 90.7 kg (200 lb) 01/29/2024 10:25 AM CDT Height 162.6 cm (5' 4 ) 01/29/2024 10:25 AM CDT Body Mass Index 34.33 01/29/2024 10:25 AM CDT Plan of Treatment Not on file Insurance Care Teams Copyright Manager Relationship Specialty Start Date End Date Shola Mark MD [address] [address] PCP - General Emergency Medicine 12/07/20
--- OUTSIDE RECORDS SUMMARY | 2024-06-15 08:04 | XMS_ITS | Referral Summary ---
Author Organization [facility] Address [address] [place] [address] Care Team Providers Care Supervisor Offset Plate Preparation Name Role Phone Jad Salcedo MD Unavailable Source Comments [facility],non-owned Affiliates and Associated Physician Practices is amultiple site organization consisting of ambulatory clinics and hospital sitesin [place], [place], [place] and [place]. This disclosure is being madepursuant to the Care Everywhere program and may not contain all information available regarding this patient. Last updated 17.[facility] Encounters Date Type Department Care Team Description 05/13/2024 Telephone [facility] ENDOSCOPY [address] [place] [address] Chris Craven, RN Scheduling Outreach (Esophageal manometry w/24 hour pH study scheduling attempt x1) from Last 3 Months Allergies No known [...] 84 10/16/2012 3:57 PM CDT Temperature 36.6 C (97.9 F) 10/16/2012 3:57 PM CDT Respiratory Rate 18 10/16/2012 3:57 PM CDT Oxygen Saturation 100% 10/16/2012 3:57 PM CDT Inhaled Oxygen Concentration - - Weight 71.7 kg (158 lb) 11/20/2012 9:45 AM CDT Height 162.6 cm (5' 4 ) 11/20/2012 9:50 AM CDT Body Mass Index 27.12 10/15/2012 11:07 PM CDT Plan of Treatment Upcoming Encounters Date Type Department Care Team (Latest Contact Info) Description 06/29/2024 9:30 AM CDT Hospital Encounter [facility] ENDOSCOPY [address] [place] [address] Surgery General 06/29/2024 9:30 AM CDT - 06/29/2024 11:00 AM CDT Surgery [facility] [address] [place] [address] Procedure, Nursing G_I GASTRIC MOTILITY STUDY Scheduled Procedures Name Priority Associated Diagnoses Date/Ti me GASTRIC MOTILITY STUDY Vomiting, unspecified vomiting type, unspecified whether nausea present 06/29/2024 9:30 AM CDT ESOPHAGUS/GASTROESOPHAGEA L REFLUX TEST Vomiting, unspecified vomiting type, unspecified whether nausea present 06/29/2024 9:30 AM CDT Advance Directives * FULL RESUSCITATION (Latest Code Status on File) Date Activated Date Inactivated Comments 10/15/2012 10:40 PM 10/16/2012 6:40 PM Care Teams Supervisor Offset Plate Preparation Relationship Specialty Start Date End Date Jad Salcedo MD Obstetrics and Gynecology 11/20/12
--- OUTSIDE RECORDS SUMMARY | 2024-06-15 08:04 | XMS_ITS | Patient Health Summary ---
Author Organization [facility] [employer] Address [address] [facility] [address] Care Team Providers Care Manager Social Responsibility Name Role Phone Jad Salcedo MD Unavailable [phone] Note from [facility],non-owned Affiliates and Associated Physician Practices is amultiple site organization consisting of ambulatory clinics and hospital sitesin [place], [place], [place] and [place]. This disclosure is being madepursuant to the Care Everywhere program and may not contain all information available regarding this patient. Last updated 17.[facility] [employer] Allergies No known active allergies Medications [...] O F CARE ORDERABLES [facility] POCT TESTING [address] [place] [address] * BIOPHYSICAL PROFILE W NST (11/10/2012 8:17 AM CDT) Only the most recent of2 resultswithin the time period is included. Anatomical Region Laterality Modality Other 11/10/2012 8:17 AM CDT Narrative 11/11/2012 8:54 AM CDT [facility] PHONE: FAX: Pat. Name: MIGUEL A CARRILLO Pat. No: [id number] Study Date: 11/10/2012 8:17am , Age: 02 1980, 32 Pregnancies: 2, Para 1 LMP: Unknown GA by 1st: 34w4d GA by US: 34w0d GA Selected: 34w4d (From First S) MARCI: 12/18/2012 Referring MD: Jad Salcedo MD/[facility] Business Dean: Allyson Andrews RDMS Hist/Ind: Hyperemesis MEASUREMENTS & AGE GROWTH EVALUATION Measurement GA Range Srce %for GA Ratios ----- ---- ------- BPD 8.1 cm 32w5d (04l9b-42v1v) Hadl BPD 22% FL/BPD 0.82 (0.71 - 0.87) HC 30.7 cm 34w1d (85y5d-60f4h) Hadl HC 44% FL/AC 0.23 (0.20 - 0.24) AC 29.6 cm 33w4d (82a0c-27a9t) Hadl AC 36% HC/AC 1.03 (0.94 - 1.13) FL 6.7 cm 34w3d (81k9j-71o5c) Hadl FL 48% CI 0.72 (0.70 - 0.86) HL 6.1 cm 35w1d (68e9h-65o9j) Edy HL 60% GA for sonogram 34w0d (03f5p-63m3v) Weight Estimate: based on (HL,BPD,HC,AC,FL) Avg Weight: 2282 gm (8648-6572) Hadlo : 5lbs, 0oz Normal: 2340 gm (2619-4447) Brenn Wt% 46% for 34.6 wks Heart Rate: 140.0 bpm Amniotic Fluid Index: 11.5 (08.0-24.9) CLINICAL SUMMARY Study Number: 4 A deleon fetus is identified in cephalic presentation. The measurements today are consistent with appropriate growth compared to previous examination. The amniotic fluid volume is within normal limits. The placenta is posterior, Grade 2. TESTING The Biophysical profile score is 8/8. IMPRESSION: Single, live, IUP at 34w4d, normal growth/AF volume Reassuring BPP (NST was not performed) RECOMMEND: Follow up ultrasound as clinically indicated. Thank you for allowing us the opportunity to care for your patient. Yomaira Tejada MD <Electronic Signature> 11/11/2012 08:54am Martha Kelly MD [facility] ORDERABLES * SONOGRAM - LIMITED (10/27/2012 8:41 AM CDT) Anatomical Region Laterality Modality Other 10/27/2012 8:41 AM CDT Narrative 10/27/2012 10:14 AM CDT [facility] PHONE: FAX: Pat. Name: MIGUEL A CARRILLO. No: [id number] Study Date: 10/27/2012 8:41am , Age: 02 1980, 32 Pregnancies: 2, Para 1 LMP: Unknown GA by 1st: 32w4d GA Selected: 32w4d (From First S) MARCI: 12/18/2012 Referring MD: Jad Salcedo MD/[facility] Business Dean: Allyson Andrews RDMS Hist/Ind: Hyperemeisis Heart Rate: 130.0 bpm Amniotic Fluid Index: 10.1 (08.4-24.4) CLINICAL SUMMARY Study Number: 3 (2 of2) A deleon fetus is identified in cephalic presentation. The placenta is posterior, Grade 1. The amniotic fluid volume is within normal limits. No major malformations are seen. IMPRESSION: Single, live, IUP at 32w4d RECOMMEND: Follow up ultrasound as clinically indicated. see other chart for full impression/recommendation Thank you for allowing us the opportunity to care for your patient. Tomas Alanis MD <Electronic Signature> 10/27/2012 10:14am Jj Og MD [facility] ORDERABLES * LAB RESULTS ORDER (10/17/2012 8:59 PM CDT) Narrative 10/17/2012 8:59 PM CDT Procedure Note Document, Scanned - 10/17/2012 8:59 PM CDT Scanned Document LAB - THERAPEUTIC DR KUSHAL MONITORING ORDERABLES * BLOOD TYPE VERIFICATION (10/16/2012 5:40 AM CDT) ABO O 10/16/2012 6:26 AM CDT [facility] BLOOD [facility] LAB Rh Type Positive 10/16/2012 6:26 AM CDT [facility] LAB Miscellaneous samples (specimen) BLOOD SPECIMEN / Unknown Lab Venipuncture / Unknown 10/16/2012 5:40 AM CDT 10/16/2012 5:53 AM CDT Sari Carl MD LAB - BLOOD BANK ORD ERABLES [facility]LOOD [facility] LAB * TYPE + SCREEN PANEL (10/15/2012 10:13 PM CDT) ABO O 10/15/2012 11:25 PM CDT [facility] Rh Type Positive 10/15/2012 11:25 PM CDT [facility] Antibody Screen Negative 3 11:25 PM CDT [facility] Comment:No historical blood type. Retype required. Miscellaneous samples (specimen) BLOOD SPECIMEN / Unknown Venipuncture / Unknown 10/15/2012 10:13 PM CDT 10/15/2012 10:18 PM CDT Cordelia Mijares MD LAB - BLOOD BANK ORDERABLES [facility] * (ABNORMAL) CBC W AUTO DIFFERENTIAL (10/15/2012 10:13 PM CDT) Pathologist [facility] WBC 9.6 4.4 - 10.7 x10^9/L 10/15/2012 10:26 PM CDT [facility] Comment: RBC 4.06 3.80 - 5.20 x10^12/L 10/15/2012 10:26 PM CDT [facility] Comment: Hemoglobin 11.2(L) 12.0 - 15.6 g/dL 10/15/2012 10:26 PM CDT [facility] Comment: Hematocrit 33.2(L) 35.9 - 45.5 % 10/15/2012 10:26 PM [facility] Comment: MCV 81.8 80.7 - 98.3 fl 10/15/2012 10:26 PM [facility] Comment: MCH 27.6 26.7 - 34.0 pg 10/15/2012 10:26 PM [facility] Comment: MCHC 33.7 30.8 - 35.9 gm/dL 10/15/2012 10:26 PM [facility] Comment: Platelet Count 374 153 - 416 x10^9/L 10/15/2012 10:26 PM [facility] Comment: RDW-CV 14.5 12.1 - 14.9 % 10/15/2012 10:26 PM [facility] Comment: MPV 9.9 9.4 - 12.9 fl 10/15/2012 10:26 PM [facility] Comment: Neutrophils % 60 44 - 73 % 10/15/2012 10:26 PM [facility] Comment: Lymphocytes % 28 20 - 43 % 10/15/2012 10:26 PM [facility] Comment: Monocytes % 11 5 - 13 % 10/15/2012 10:26 PM [facility] Comment: Eosinophils % 1 0 - 6 % 10/15/2012 10:26 PM [facility] Comment: Basophils % 0 0 - 2 % 10/15/2012 10:26 PM [facility] Comment: Neutrophil Absolute 5.73 2.01 - 7.14 x10^9/L 10/15/2012 10:26 PM [facility] Comment: Lymphocytes Absolute 2.71 1.07 - 3.94 x10^9/L 10/15/2012 10:26 PM [facility] Comment: Monocytes Absolute 1.03 0.26 - 1.07 x10^9/L 10/15/2012 10:26 PM [facility] Comment: Eosinophils Absolute 0.10 0 - 0.47 x10^9/L 10/15/2012 10:26 PM [facility] Comment: Basophils Absolute 0.02 0 - 0.08 x10^9/L 10/15/2012 10:26 PM [facility] Comment: Blood specimen (specimen) BLOOD SPECIMEN / Unknown Venipuncture / Unknown 10/15/2012 10:13 PM CDT 10/15/2012 10:18 PM CDT Cordelia Mijares MD LAB - HEMATOLOGY ORDERABLES [facility] [address] [place] [address] * (ABNORMAL) COMPREHENSIVE METABOLIC PANEL (10/15/2012 10:13 PM CDT) Glucose 51(L) 74 - 106 mg/dL 10/15/2012 10:37 PM CDT [facility] Sodium 142 136 - 145 mmol/L 10/15/2012 10:37 PM CDT [facility] Potassium 4.1 3.5 - 5.1 mmol/L 10/15/2012 10:37 PM CDT [facility] Chloride 106 98 - 107 mmol/L 10/15/2012 10:37 PM CDT [facility] CO2 22 22 - 31 mmol/L 10/15/2012 10:37 PM CDT [facility] Calcium 9.6 8.5 - 10.1 mg/dL 10/15/2012 10:37 PM CDT [facility] Anion Gap 14 5 - 15 mmol/L 10/15/2012 10:37 PM CDT [facility] BUN 4(L) 7 - 21 mg/dL 10/15/2012 10:37 PM CDT [facility] Creatinine 0.37(L) 0.50 - 1.30 mg/dL 10/15/2012 10:37 PM CDT [facility] eGFR by MDRD >60 >60 ml/min/1.7 3m2 10/15/2012 10:37 PM CDT [facility] eGFR by MDRD >60 >60 ml/min/1.7 3m2 10/15/2012 10:37 PM CDT [facility] Alkaline Phosphatase 95 38 - 126 U/L 10/15/2012 10:37 PM CDT [facility] ALT 16 12 - 78 U/L 10/15/2012 10:37 PM CDT [facility] AST 13 5 - 40 U/L 10/15/2012 10:37 PM CDT [facility] Protein Total 7.5 6.4 - 8.2 gm/dL 10/15/2012 10:37 PM CDT [facility] Albumin 3.0(L) 3.4 - 5.0 gm/dL 10/15/2012 10:37 PM CDT [facility] Bilirubin Total 0.4 0.2 - 1.0 mg/dL 10/15/2012 10:37 PM CDT [facility] Blood specimen (specimen) BLOOD SPECIMEN / Unknown Venipuncture / Unknown 10/15/2012 10:13 PM CDT 10/15/2012 10:18 PM CDT Cordelia Mijares MD LAB - CHEMISTRY ORDERABLES [facility] [address] [place] [address] * (ABNORMAL) URINALYSIS ROUTINE W/REFLEX TO CULTURE (10/15/2012 6:58 PM CDT) Color UA Kathryn(A) Straw, Yellow, Dark Yellow 10/15/2012 7:20 PM CDT [facility] Clarity UA Cloudy 10/15/2012 7:20 PM CDT [facility] Specific Harmony UA 1.027 1.005 - 1.030 10/15/2012 7:20 PM T [facility] pH UA 7.5 5.0 - 8.0 10/15/2012 7:20 PM T [facility] Protein UA Trace(A) Negative 10/15/2012 7:20 PM CDT [facility] Blood UA Negative Negative 10/15/2012 7:20 PM T [facility] Leukocyte UA 2+(A) Negative 10/15/2012 7:20 PM CDT [facility] Nitrite UA Negative Negative 10/15/2012 7:20 PM CDT [facility] Glucose UA Negative Negative 10/15/2012 7:20 PM CDT [facility] Ketone UA 3+(A) Negative 10/15/2012 7:20 PM CDT [facility] Bilirubin UA Negative Negative 10/15/2012 7:20 PM CDT [facility] Urobilinogen UA 1.0 0.1 - 1.0 EU/dL 10/15/2012 7:20 PM T [facility] WBC UA Auto 20-50(A) 0-2, 2-5 #/hpf 10/15/2012 7:20 PM CDT [facility] RBC UA Auto 2-5 0-2, 2-5 #/hpf 10/15/2012 7:20 PM CDT [facility] Epithelial Cell UA Auto 20-50(A) 0-2, 2-5 #/hpf 10/15/2012 7:20 PM CDT [facility] Bacteria UA Auto 4+(A) None seen 10/16/19 13 7:20 PM CDT [facility] Hyaline Casts UA Auto Reflex to manual(A) 0 - 2 #/lpf 10/15/2012 7:20 PM CDT [facility] Reflex Status Culture to follow 10/15/2012 7:20 PM CDT [facility] Urine specimen (specimen) URINE SPECIMEN OBTAINED BY CLEAN CATCH PROCEDURE / Unknown Collection / Unknown 10/15/2012 6:58 PM CDT 10/15/2012 7:07 PM CDT Cordelia Mijares MD LAB - URINALYSIS ORDERABLES Performing Organization Address City/[facility] Co de Phone Number [facility] [address] [place] [address] * (ABNORMAL) URINALYSIS MICROSCOPIC ONLY W/REFLEX CULTURE (10/15/2012 6:58 PM CDT) Bacteria UA 4+(A) None Seen 10/15/2012 7:28 PM CDT [facility] Mucus UA 1+ 10/15/2012 7:28 PM CDT [facility] Hyaline Casts 5-10(A) 0 - 2 # /lpf 10/15/2012 7:28 PM CDT [facility] Urine specimen (specimen) URINE SPECIMEN OBTAINED BY CLEAN CATCH PROCEDURE / Unknown 10/15/2012 6:58 PM CDT 10/15/2012 7:07 PM CDT Narrative [facility] - 10/15/2012 7:28 PM CDT No path casts Cordelia Mijares MD LAB - URINALYSIS ORDERABLES Performing Organization Address [facility] Co de Phone Number [facility] [address] [place] [phone] * CULTURE URINE (10/15/2012 6:58 PM CDT) Culture 10,000-50,000 CFU/mL normal urogenital tolu 10/17/2012 10:40 AM CDT [facility] Urine specimen (specimen) URINE SPECIMEN OBTAINED BY CLEAN CATCH PROCEDURE / Unknown 10/15/2012 6:58 PM CDT 10/15/2012 7:07 PM CDT Cordelia Mijares MD LAB - MICROBIOLO GY ORDERABLES Performing Organization Address City/[facility] Co de Phone Number [facility] [address] * GLUCOSE - POINT OF CARE (10/15/2012 6:56 PM CDT) [facility] Glucose WB/POC 90 70 - 106 mg/dL 10/15/2012 6:58 PM CDT [facility] Blood specimen (specimen) BLOOD SPECIMEN / Unknown 10/15/2012 6:56 PM CDT 10/15/2012 6:58 PM CDT Narrative [facility] - 10/15/2012 6:58 PM CDT NOTIFIED CAREGIVER aSri Carl MD LAB - POINT OF CARE ORDERABLES Performing Organization Address [facility] de Phone Number [facility] [address] [place] [address] * SONOGRAM - COMPLETE (10/15/2012 2:27 PM CDT) Only the most recent of2 resultswithin the time period is included. Anatomical Region Laterality Modality Other 10/15/2012 2:27 PM CDT Narrative 10/15/2012 3:21 PM CDT [facility] PHONE: FAX: Pat. Name: CARRILLOLOUISADAVIDINDIO Nagel Pat. No: [id number] Study Date: 10/15/2012 2:27pm , Age: 02 1980, 32 Pregnancies: 2, Para 1 LMP: Unknown GA by 1st: 30w6d GA by US: 30w4d GA Selected: 30w6d (From First S) MARCI: 12/18/2012 Referring MD: Jad Salcedo MD/[facility] Business Dean: Allyson Andrews RDMS Hist/Ind: Hyperemeisis MEASUREMENTS & AGE GROWTH EVALUATION Measurement GA Range Srce %for GA Ratios ----- ---- ------- BPD 7.8 cm 31w2d (71m4m-12b2s) Hadl BPD 56% FL/BPD 0.78 (0.71 - 0.87) HC 26.9 cm 29w2d (01z1d-46j0c) Hadl HC 17% FL/AC 0.25 (0.20 - 0.24* AC 25.0 cm 29w1d (77b0f-52x4z) Hadl AC 16% HC/AC 1.08 (0.97 - 1.16) FL 6.1 cm 31w5d (20i4q-96i9n) Hadl FL 64% CI 0.84 (0.70 - 0.86) HL 5.4 cm 31w4d (44x4f-90e6o) Edy HL 63% GA for sonogram 30w4d (20p0p-68h1v) Weight Estimate: based on (HL,BPD,HC,AC,FL) Avg Weight: 1529 gm (7677-2201) Hadlo : 3lbs, 5oz Normal: 1606 gm (6468-4420) Brenn Wt% 43% for 30.9 wks Heart Rate: 145.0 bpm Amniotic Fluid Index: 14.2 (08.8-23.7) CLINICAL SUMMARY Study Number: 2 A deleon fetus is identified in cephalic presentation. The measurements today are consistent with appropriate growth compared to previous examination. The MARCI selected is based on prior ultrasound examination. The amniotic fluid volume is within normal limits. The placenta is posterior, Grade 1. No major malformations are seen. The patient was advised that ultrasound does not allow detection of all structural or chromosomal abnormalities. IMPRESSION: Single, live IUP at 30w6d AGA growth Normal AFV No malformations seen within the limitations of ultrasound RECOMMEND: Follow up ultrasound as clinically indicated Thank you for allowing us the opportunity to care for your patient Zach Tesfaye MD <Electronic Signature> 10/15/2012 03:21pm Sanjay Alvares MD [facility] ORDERABLES Care Teams Manager Social Responsibility Relationship Specialty Start Date End Date Harshad-Jad Wayne MD Obstetrics and Gynecology 11/20/12
--- OUTSIDE RECORDS SUMMARY | 2024-06-15 08:04 | XMS_ITS | Clinical Summary ---
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 ATM TECHNICIAN Procedure visit [facility] Otolaryngology [address] [place] [phone] Jen Pena Sensorineural hearing loss (SNHL) of both ears (Primary Dx); Dizziness and giddiness 05/25/2024 Documentation [facility] Physical Therapy [address] [place] [id number] Courtney Ross, PT 04/21/2024 10:00 AM ATM TECHNICIAN Therapy [facility] Physical Therapy [address] [place] [address] Anastacia Reyna, CRTS Chronic low back pain, unspecified back pain laterality, unspecified whether sciatica present (Primary Dx) 04/15/2024 Documentation [facility] Physical Therapy [address] [place] [phone] Shannan Burnette, CRTS 04/03/2024 10:45 AM ATM TECHNICIAN Therapy [facility] Physical Therapy [address] [place] [address] Mireille Kaminski, CRTS Chronic low back pain, unspecified back pain laterality, unspecified whether sciatica present (Primary Dx) 03/26/2024 9:15 AM ATM TECHNICIAN Therapy [facility] Physical Therapy [address] [place] [id number] SchsarathMagdinohemy, CRTS Chronic low back pain, unspecified back pain laterality, unspecified whether sciatica present (Primary Dx) 03/20/2024 9:15 AM ATM TECHNICIAN Therapy [facility] Physical Therapy [address] [place] [address] HairAllyson, PT Chronic low back pain, unspecified back pain laterality, unspecified whether sciatica present 03/20/2024 Plan of Care Documentation [facility] Physical Therapy [address] [place] [phone] from Last 3 Months Surgical History Surgery Date Site/Laterality Comments DC APPENDECTOMY Appendectomy - (Added by TW Conv) [...] on file Legal Sex Female 3:42 AM ATM TECHNICIAN Gender Identity Not on file Sexual Orientation [...] patient's age to complete this topic Insurance [facility] Care Teams Oven Dumper Relationship Specialty Start Date End Date Shola Mark MD [address] [address] PCP - General Emergency Medicine 12/07/20
--- OUTSIDE RECORDS SUMMARY | 2024-06-15 08:04 | XMS_ITS | Clinical Summary ---
Author Organization [facility] Address [address] [place] [address] Care Team Providers Care Leasing Representative Name Role Phone Jad Salcedo MD Unavailable Source Comments [email or web address] [facility],non-owned Affiliates and Associated Physician Practices is amultiple site organization consisting of ambulatory clinics and hospital sitesin [place], [place], [place] and [place]. This disclosure is being madepursuant to the Care Everywhere program and may not contain all information available regarding this patient. Last updated [email or web address] [facility] Allergies No known active allergies Medications * Be aware that medications may not be up to date on this document. Always verify current medications with the patient. Medication Sig [...] Type Department Care Team Description 05/13/2024 Telephone [facility] [address] [place] [address] Chris Craven, DREW Scheduling Outreach (Esophageal manometry w/24 hour pH study scheduling attempt x1) from Last 3 Months Social History Tobacco [...] Description 06/29/2024 9:30 AM CDT Hospital Encounter [facility] [address] [place] [address] Surgery General 06/29/2024 9:30 AM CDT - 06/29/2024 11:00 AM CDT Surgery [facility] [address] [place] [address] Procedure, Nursing G_I GASTRIC MOTILITY STUDY Scheduled Procedures Name Priority Associated Diagnoses Date/Ti me GASTRIC MOTILITY STUDY Vomiting, unspecified vomiting type, unspecified whether nausea present 06/29/2024 9:30 AM CDT ESOPHAGUS/GASTROESOPHAGEA L REFLUX TEST Vomiting, unspecified vomiting type, unspecified whether nausea present 06/29/2024 9:30 AM CDT Health Maintenance Due Date Last Done Comments [...] 10:40 PM 10/16/2012 6:40 PM Care Teams Leasing Representative Relationship Specialty Start Date End Date Jad Salcedo MD Obstetrics and Gynecology 11/20/12
--- OUTSIDE RECORDS SUMMARY | 2024-06-15 08:04 | XMS_ITS | Encounter Summary ---
Author Organization [facility] Address [address] [place] [address] Care Team Providers Care Roller Stitcher Name Role Phone Jad Salcedo MD Unavailable [phone] Reason for Referral * Consultation (Routine) - Pending Review Specialty Diagnoses / Procedures Referred By Contadeola t Referred To Contact Orthopedics Diagnoses Pain in left ankle and joints of left foot Shola Mark MD [address] [address] [facility] [address] [place] [address] Referral ID Status Reason Start Date Expiration Date Visits Requested Visits Authorized [id number] Pending Review Specialty Services Required 02/07/2024 02/06/2025 1 1 Encounter Details Date Type Department Care Team (Latest Contact Info) Description 02/07/2024 Transcribe Orders [facility] - Centralized Scheduling [facility] [place] [address] Shola Mark MD [address] [address] Pain in left ankle and [...] as of this encounter Plan of Treatment Upcoming Encounters Date Type Department Care Team (Latest Contact Info) Description 06/29/2024 9:30 AM CDT Hospital Encounter [facility] [address] [place] [address] Surgery General 06/29/2024 9:30 AM CDT - 06/29/2024 11:00 AM CDT Surgery [facility] [address] [place] [address] Procedure, Nursing G_I GASTRIC MOTILITY STUDY Scheduled Procedures Name Priority Associated Diagnoses Date/Ti me GASTRIC MOTILITY STUDY Vomiting, unspecified vomiting type, unspecified whether nausea present 06/29/2024 9:30 AM CDT ESOPHAGUS/GASTROESOPHAGEA L REFLUX TEST Vomiting, unspecified vomiting type, unspecified whether nausea present 06/29/2024 9:30 AM CDT Scheduled Referrals Name Type Priority Associated Diagnoses Order Schedule AMB REFERRAL TO ORTHOPEDICS Outpatient Referral Routine Pain in left ankle and joints of left foot 1 Occurrences starting 02/07/2024 until 02/06/2025 documented as of this encounter Visit Diagnoses Diagnosis Pain in left ankle and joints of left foot- Primary Vomiting, unspecified vomiting type, unspecified whether nausea present documented in this encounter Care Teams Roller Stitcher Relationship Specialty Start Date End Date Colon-Jad Wayne MD Obstetrics and Gynecology 11/20/12 documented as of this encounter
== END 2024-06-15 07:57 | disposition home or self-care (01) ==
PROVIDERS: PCP Emergency Medicine; Visit Provider Nurse Practitioner Family
DX: R11.2 Nausea with vomiting, unspecified (principal)
CPT/HCPCS: 78264; A9541

== ENCOUNTER 2024-09-21 09:36 | Outpatient (CLI) | payer OTHER, SELFPAY ==
[2024-09-21 10:12] LABS: Hematocrit 43.5 % (37.0-47.0); Hemoglobin 13.8 g/dL (12.0-15.0); Mean Corpuscular HGB Conc 31.7 g/dl (32-36); Mean Corpuscular Hemoglobin 26.7 pg (26-34); Mean Corpuscular Volume 84.3 fl (80-100); Platelet Count Result 356 k/mm3 (150-375); Red Blood Count 5.16 M/mm3 (4.2-5.4); White Blood Count 10.6 K/mm3 (4.5-10.0)
--- OUTSIDE RECORDS SUMMARY | 2024-09-21 10:13 | XMS_ITS | Encounter Summary ---
Author Organization [facility] Address [address] [place] [address] Care Team Providers Care Criminal Defense Lawyer Name Role Phone Jad Salcedo MD Unavailable [phone] Mushtaq Moore MD Primary Care Provider [phone] Reason for Referral * Consultation (Routine) - Closed Specialty Diagnoses / Procedures Referred By Contac t Referred To Contact Orthopedics Diagnoses Pain in left ankle and joints of left foot Shola Mark MD [address] [address] Phone: tel: fax: [facility] - Orthopedic Surgery [address] [place] [address] Phone: tel: fax: Referral ID Status Reason Start Date Expiration Date V isits Requested Visits Authorized [id number] Closed Specialty Services Required 02/07/2024 02/06/2025 1 1 Encounter Details Date Type Department Care Team (Latest Contact Info) Description 02/07/2024 Transcribe Orders [facility] - Centralized Scheduling [address] [place] [id number] Shola Mark MD [address] [address] Pain in left ankle and joints of left foot Social History Tobacco Use Types Packs/Day Years Used Date Smoking Tobacco: Former Cigarettes Smokeless Tobacco: Never Alcohol Use Standard Drinks/Week Comments No 0 (1 standard drink = 0.6 oz pur e alcohol) Comments No Sex and Gender Information Value Date Recorded Sex Assigned at Not on file 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 Gender Identity Not on file Sexual Orientation Not on file documented as of this encounter Plan of Treatment Upcoming Encounters Date Type Department Care Team (Late st Contact Info) Description 10/08/2024 10:15 AM CDT Office Visit [facility] - Orthopedic Surgery [address] [place] [address] Soraida Gary PA [facility] [place] [phone] Scheduled Referrals Name Type Priority Associated Diagnoses Order Schedule AMB REFERRAL TO ORTHOPEDICS Outpatient Referral Routine Pain in left ankle and joints of left foot 1 Occurrences starting 02/07/2024 until 02/06/2025 documented as of this encounter Visit Diagnoses Diagnosis Pain in left ankle and joints of left foot- Primary documented in this encounter Care Teams Criminal Defense Lawyer Relationship Specialty Start Date End Date Mushtaq Moore MD [address] [place] [address] PCP - General Vascular Surgery 08/17/24 Harshad-Jad Wayne MD Obstetrics and Gynecology 11/20/12 documented as of this encounter
--- OUTSIDE RECORDS SUMMARY | 2024-09-21 10:13 | XMS_ITS | Referral Summary ---
Author Organization [facility] [address] [facility] Address [address] [place] [address] Care Team Providers Care Ekg Monitor Name Role Phone Shola Mark MD Primary Care Provider [phone] Allergies Active Allergy Reactions Criticality Noted Date [...] on file Legal Sex Female 3:42 AM C4 PLANNER Gender Identity Not on file Sexual Orientation [...] 10:25 AM CDT Height 162.6 cm (5' 4) 01/29/2024 10:25 AM CDT Body Mass Index 34.33 01/29/2024 10:25 AM CDT Plan of Treatment Not on file Insurance [facility] Care Teams Ekg Monitor Relationship Specialty Start Date End Date Shola Mark MD [address] [address] PCP - General Emergency Medicine 12/07/20
--- OUTSIDE RECORDS SUMMARY | 2024-09-21 10:13 | XMS_ITS | Clinical Summary ---
Author Organization [facility] [employer] Address [address] [place] [address] Care Team Providers Care It Professional Name Role Phone Jad Salcedo MD Unavailable [phone] Mushtaq Moore MD Primary Care Provider [phone] Source Comments [facility],non-owned Affiliates and Associated Physician Practices is amultiple site organization consisting of ambulatory clinics and hospital sitesin [place], [place], [place] and [place]. This disclosure is being madepursuant to the Care Everywhere program and may not contain all information available regarding this patient. Last updated 17.[facility] [employer] Allergies Active Allergy Reactions Criticality Noted Date Comments Amoxicillin Rash,Swelling Medium 05/13/2018 yeast, swelling vaginal area and rash on body Medications * Be aware that medications may not be up to date on this document. Alwaysverify current medications with the patient. famotidine (PEPCID) 20 MG tablet Take 1 Tab by mouth 2 times daily. 90 Tab 3 09/18/19 13 Active Doxylamine-Pyri doxine (DICLEGIS) 10-10 MG TBEC Take 1 Tab by mouth once daily. 30 Tab 6 10/02/19 13 Active methylPREDNISol one (MEDROL) 16 MG tablet Take 1 Tab by mouth 3 times daily. 21 Tab 0 10/17/19 13 Active Additional Information Patient not taking.Reported on 09/10/2024 metoclopramide (REGLAN) 10 MG tablet Take 1 Tab by mouth every 6 hours. 90 Tab 1 10/17/19 13 Active Additional Information Patient not taking.Reported on 09/10/2024 promethazine (PHENERGAN) 25 MG tablet Take 1 Tab by mouth every 6 hours as needed for Nausea/Vomiting . 28 Tab 3 10/17/19 13 Active Additional Information Patient not taking.Reported on 09/10/2024 promethazine (PHENERGAN) 25 MG suppository Insert 1 Suppository into the rectum every 6 hours as needed for Nausea/Vomiting . 12 Suppository 5 10/17/19 13 Active Additional Information Patient not taking.Reported on 09/10/2024 bisacodyl EC 5 MG tablet TAKE 2 TABLETS BY MOUTH TODAY. REPEAT IN THE MORNING IF NO RESULTS 06/13/19 24 Active cefdinir (Omnicef) 300 MG capsule TAKE 1 CAPSULE BY MOUTH EVERY 12 HOURS FOR 1 WEEK 02/05/20 24 Active HYDROcodone-wilbert taminophen (Perry) 5-325 MG tablet TAKE 1 TAB BY MOUTH EVERY 6 HOURS NEEDED FOR PAIN. MODERATE (4-6 ON SCALE) SEVERE (7-10 ON SCALE) 02/23/20 23 Active levoFLOXacin (Levaquin) 750 MG tablet TAKE 1 TABLET BY MOUTH ONCE A DAY FOR 5 DAYS TO COMPLETE THERAPY 02/23/20 23 Active NIFEdipine CR osmotic 24hr (Procardia-XL) 30 MG tablet TAKE 1 TABLET EVERY DAY BY ORAL ROUTE, FOR HIGH BLOOD PRESSURE. 07/10/19 25 Active sucralfate (Carafate) 1 GM tablet TAKE 1 TABLET (1 G) BY MOUTH EVERY 6 HOURS FOR 1 MONTH 08/05/19 25 Active SUMAtriptan (Imitrex) 50 MG tablet TAKE 1 TABLET BY MOUTH NEEDED FOR MIGRAIN 07/18/19 25 Active traMADol (Ultram) 50 MG tablet TAKE 1 TABLET BY MOUTH THREE TIMES A DAY NEEDED FOR BACK PAIN 06/23/19 25 Active meloxicam (Mobic) 15 MG tabletIndicatio ns:Sprain of left ankle, unspecified ligament, subsequent encounter,Achil les tendinitis of left lower extremity Take 1 (one) tablet by mouth once daily 30 tablet 2 09/11/19 25 Active naproxen (Naprosyn) 500 MG tablet TAKE 1 TABLET TWICE A DAY BY ORAL ROUTE NEEDED, FOR BACK PAIN. 08/13/19 24 025 Discontin ued(Clini serina Decision) meloxicam (Mobic) 15 MG tabletIndicatio ns:Sprain of left ankle, unspecified ligament, initial encounter Take 1 (one) tablet by mouth once daily 30 tablet 2 08/25/19 25 025 Discontin ued(List Clean-Up) Active Problems Patient Care Coordination No te [...] Encounters Date Type Department Care Team Description 09/10/2024 10:45 AM CDT Office Visit [facility] - Orthopedic Surgery [address] [place] [address] Soraida Gary PA Sprain of left ankle, unspecified ligament, subsequent encounter (Primary Dx); Achilles tendinitis of left lower extremity 09/10/2024 Travel 09/01/2024 11:41 AM CDT Anesthesia Event [facility] [address] [place] [phone] Johnathon Osborne II, MD Dobbs, Kristin L, SHEAR HELPER-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 09/01/2024 11:00 AM CDT - 09/01/2024 11:30 AM CDT Surgery [facility] [address] [place] [phone] Kalpesh Beauchamp MD EGD w/ Loredo--off PPI 09/01/2024 9:54 AM CDT - 09/01/2024 12:56 PM CDT Hospital Encounter [facility] [address] [place] [address] Kalpesh Beauchamp MD Surgery General Discharge Disposition: Home or Self Care 09/01/2024 Travel 08/26/2024 Telephone [facility] [address] [place] [phone] Chris Craven RN Confirmation 08/24/2024 11:00 AM CDT Office Visit [facility] - Orthopedic Surgery [address] [place] [phone] Soraida Gary PA Sprain of left ankle, unspecified ligament, initial encounter (Primary Dx) 08/24/2024 10:31 AM CDT - 08/24/2024 11:59 PM CDT Hospital Encounter [facility] - Orthopedics [address], [address] [place] [phone] Soraida Gary PA Discharge Disposition: Home or Self Care 08/24/2024 Travel 08/10/2024 Travel 08/05/2024 Orders Only [facility] - Orthopedic Surgery [address] [place] [phone] Soraida Gary PA Pain of joint of left ankle and foot 07/21/2024 7:30 AM CDT - 07/21/2024 9:00 AM CDT Surgery [facility] [address] [place] [address] Procedure, Nursing G_I GASTRIC MOTILITY STUDY 07/21/2024 7:03 AM CDT - 07/21/2024 9:01 AM CDT Hospital Encounter [facility] [address] [place] [address] Kalpesh Beauchamp MD Surgery General Discharge Disposition: Home or Self Care 07/21/2024 Telephone [facility] [address] [place] [address] Chris Craven RN Question 07/21/2024 Travel 06/29/2024 Telephone [facility] [address] [place] [address] Lashay Richardson, RN Scheduling Outreach from Last 3 Months Social History Tobacco Use Types Packs/Day Years Used Date Smoking Tobacco: Former Cigarettes Smokeless Tobacco: Never Tobacco Cessation:Counseling Given: Not Answered Alcohol Use Standard Drinks/Week Comments No 0 (1 standard drink = 0.6 oz pur e alcohol) PHQ-2 Answer Date Recorded Patient Health Questionnaire-2 Score 6 08/24/2024 Comments No Sex and Gender Information Value Date Recorded Sex Assigned at Not on file 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 Gender Identity Not on file Sexual Orientation Not on file Last Filed Vital Signs Vital Sign Reading Time Taken Comments Blood Pressure 117/94 09/01/2024 12:30 PM CDT Pulse 66 09/01/2024 12:30 PM CDT Temperature 35.9 C (96.7 F) 09/01/2024 12:15 PM CDT Respiratory Rate 12 09/01/2024 12:30 PM CDT Oxygen Saturation 100% 09/01/2024 12:30 PM CDT Inhaled Oxygen Concentration - - Weight 101.2 kg (223 lb) 09/01/2024 10:10 AM CDT Height 162.6 cm (5' 4) 09/01/2024 10:10 AM CDT Body Mass Index 38.28 09/01/2024 10:10 AM CDT Plan of Treatment Upcoming Encounters Date Type Department Care Team (Late st Contact Info) Description 10/08/2024 10:15 AM CDT Office Visit [facility] - Orthopedic [facility] [address] [place] [address] Soraida Gary PA [address] [place] [phone] Health Maintenance Due Date Last Done Comments LIPID TESTING 1980 MAMMOGRAM 1980 HIV SCREENING 1996 HEPATITIS C SCREENING 05/15/1999 DTAP/TDAP/TD VACCINES (1 - Tdap) 2000 HEPATITIS B VACCINE (1 of 3 - 19+ 3-dose series) 2000 PAP SMEAR 2002 COVID-19 VACCINE ( season) 2023 DEPRESSION SCREENING 04/08/2024 INFLUENZA VACCINE (Season Ended) 2024 SCREENING FOR DIABETES 11/04/2026 , 11/05/2023, 10/15/2012, Additional history exists ZOSTER VACCINE (1 of 2) 2031 HIB VACCINE Aged Out No longer eligi ble based on patient's age to complete this topic HPV VACCINE Aged Out No longer eligi ble based on patient's age to complete this topic MENINGOCOCCAL (Group B) VACCINE SHARED DECISION-MAKING Aged Out No longer eligible based on patient's age to complete this topic MENINGOCOCCAL GROUPS A/C/Y/W VACCINE Aged Out No longer eligible based on patient's age to complete this topic PNEUMOCOCCAL VACCINE Aged Out No long er eligible based on patient's age to complete this topic Procedures Procedure Name Priority Date/Time Associated Diagnosis Comments EGD Routine 09/01/2024 11:43 AM CDT ID ESOPH RUSSELL TEST; W/NASAL CATH PH ELEC PLCMT REC 09/01/2024 11:35 AM CDT Heartburn Nausea and vomiting, unspecified vomiting type ID ED EGD FLEX TRANSORAL DX 09/01/2024 11:35 AM CDT Heartburn Nausea and vomiting, unspecified vomiting type HCG URINE QUALITATIVE - POCT (IP) INTERFACED Routine 09/01/2024 10:24 AM CDT HCG URINE QUAL POCT NOTIFICATION STAT 09/01/2024 10:08 AM CDT Preop examination XR FOOT LEFT 3VW OR MORE Routine 08/24/2024 10:39 AM CDT Pain of joint of left ankle and foot XR ANKLE LEFT 3VW OR MORE Routine 08/24/2024 10:39 AM CDT Pain of joint of left ankle and foot ID ESOPH FUNCT TST RUSSELL NASL CATH ELEC PLCMT; PROLNG 07/21/2024 7:53 AM CDT Vomiting, unspecified vomiting type, unspecified whether nausea present ID ESOPHAGUS MOTILITY STUDY 07/21/2024 7:53 AM CDT Vomiting, unspecified vomiting type, unspecified whether nausea present GLUCOSE - POINT OF CARE Routine 10/15/2012 6:56 PM CDT from Last 3 Months or Most Recently Relevant to Health Maintenance Results * EGD (09/01/2024 11:43 AM CDT) Report Endoscopy POC Endoscopy Department Report _ Patient Name: Miguel A Cutler Procedure Date: 09/01/2024 11:43 AM Date of : 1980 Classification: Outpatient Gender: Female Ethnicity: Not or Race: Black or _ Providers: Kalpesh Beauchamp MD, Binh Mistry (Fellow) Referring MD: Procedure: Upper GI endoscopy Indications: Suspected esophageal reflux Medications: Monitored Anesthesia Care Description of Procedure: Pre-Anesthesia Assessment: - Prior to the procedure, a History and Physical was performed, and patient medications and allergies were reviewed. The patient's tolerance of previous anesthesia was also reviewed. The risks and benefits of the procedure and the sedation options and risks were discussed with the patient. All questions were answered, and informed consent was obtained. Prior Anticoagulants: The patient has taken no anticoagulant or antiplatelet agents. ASA Grade Assessment: III - A patient with severe systemic disease. After reviewing the risks and benefits, the patient was deemed in satisfactory condition to undergo the procedure. After obtaining informed consent, the endoscope was passed under direct vision. Throughout the procedure, the patient's blood pressure, pulse, and oxygen saturations were monitored continuously. The Endoscope was introduced through the mouth, and advanced to the second part of duodenum. The upper GI endoscopy was accomplished without difficulty. The patient tolerated the procedure well. The upper GI endoscopy was accomplished without difficulty. The patient tolerated the procedure well. Findings: LA Grade B (one or more mucosal breaks greater than 5 mm, not extending between the tops of two mucosal folds) esophagitis with bleeding was found 33 cm from the incisors. The LOREDO capsule with delivery system was introduced through the mouth and advanced into the esophagus, such that the LOREDO pH capsule was positioned 27 cm from the incisors, which was 6 cm proximal to the GE junction. The LOREDO pH capsule was then deployed and attached to the esophageal mucosa. The delivery system was then withdrawn. Endoscopy was utilized for probe placement and diagnostic evaluation. A 4 cm hiatal hernia was present. Hill Grade IV. The exam of the stomach was otherwise normal. The examined duodenum was normal. Estimated Blood Loss: Estimated blood loss was minimal. Complications: No immediate complications. Impression: - LA Grade B reflux esophagitis with bleeding. - 4 cm hiatal hernia. - Normal examined duodenum. - The LOREDO pH capsule was deployed. - No specimens collected. Recommendation: - Resume previous diet. - Continue present medications. - Return to GI clinic as previously scheduled. Attending Participation: I was present for the andrews portions of this procedure and immediately available for all non-andrews portions of the procedure. Procedure Code(s): --- Professional --- 58647, Esophagogastroduo denoscopy, flexible, transoral; diagnostic, including collection of specimen(s) by brushing or washing, when performed (separate procedure) Diagnosis Code(s): --- Professional --- K21.01, Gastro-esophageal reflux disease with esophagitis, with bleeding K44.9, Diaphragmatic hernia without obstruction or gangrene CPT copyright 2021 [employer]. All rights reserved. The codes documented in this report are preliminary and upon career services assistant review may be revised to meet current compliance requirements. Kalpesh Beauchamp MD 09/01/2024 12:05:43 PM Note Initiated On: 09/01/2024 11:43 AM Number of Addenda: [address] PROVATION 09/01/2024 11:4 3 AM CDT us Kalpesh Beauchamp MD GI PROCEDURE ORDERABLES Edited Result - Final Performing Organization Address [facility] Co de Phone Number [facility] PROVATION * HCG URINE QUALITATIVE - POCT (IP) INTERFACED (09/01/2024 10:24 AM CDT) HCG Qual Urine Negative Negative 09/01/2024 10:31 AM CDT [facility] Urine URINE / Unknown 09/01/2024 1 0:24 AM CDT 09/01/2024 10:31 AM CDT us Kalpesh Beauchamp MD LAB - POINT OF CARE ORDERABLES Final Result Performing Organization Address [facility] de Phone Number [address] [address], [place] [phone] * HCG URINE QUAL POCT NOTIFICATION (09/01/2024 10:08 AM CDT) Comment Notification Label Only - See Separate Report 09/01/2024 11:31 AM CDT [facility] Urine URINE / Unknown 09/01/2024 1 0:08 AM CDT 09/01/2024 10:08 AM CDT us Kalpesh Beauchamp MD LAB - URINALYSIS ORDERABLES Fin al Result Performing Organization Address [facility] Co de Phone Number [address] [address], [place] [phone] * XR Foot Left 3Vw or More (08/24/2024 10:39 AM CDT) Anatomical Region Laterality Modality Ankle / Foot Radiographic Emilee ging 08/24/2024 12:5 5 PM CDT Impressions 08/24/2024 12:56 PM CDT IMPRESSION: Small posterior calcaneal spur. Otherwise relatively normal appearing examination. The forefoot plantar soft tissues and osseous structures are not fully visualized on the lateral weightbearing view however.. > Interpreting Provider: Neptali Marmolejo MD on 08/24/2024 12:56 PM Narrative 08/24/2024 12:56 PM CDT PROCEDURE: XR FOOT LEFT 3VW OR MORE COMPARISON: No relevant available comparison. CLINICAL INFORMATION (none relevant/not provided if blank): Indication: M25.572: Pain in left ankle and joints of left foot Additional History: FINDINGS: Weightbearing AP, internal rotation and lateral views of the left foot were obtained and shows no evidence of fracture, malalignment, bone or joint space destruction nor erosive changes. Bony mineralization appeared normal. Osseous structures are normally aligned. There is a small spur of the posterior calcaneus seen at the Achilles tendon insertion site. Procedure Note Neptali Marmolejo MD - 08/24/2024 PROCEDURE: XR FOOT LEFT 3VW OR MORE COMPARISON: No relevant available comparison. CLINICAL INFORMATION (none relevant/not provided if blank): Indication: M25.572: Pain in left ankle and joints of left foot Additional History: FINDINGS: Weightbearing AP, internal rotation and lateral views of the left footwere obtained and shows no evidence of fracture, malalignment, bone or joint space destruction nor erosive changes. Bony mineralization appearednormal. Osseous structures are normally aligned. There is a small spur of the posterior calcaneus seen at the Achilles tendon insertion site. IMPRESSION: Small posterior calcaneal spur. Otherwise relatively normal appearing examination. The forefoot plantar soft tissues and osseous structures are not fully visualized on the lateral weightbearing view however.. > Interpreting Provider: Neptali Marmolejo MD on 08/24/2024 12:56 PM Soraida [facility] ORDERABLES Fi nal Result * XR Ankle Left 3Vw or More (08/24/2024 10:39 AM CDT) Anatomical Region Laterality Modality Lower Extremity Radiographic Emilee ging 08/24/2024 12:5 8 PM CDT Impressions 08/24/2024 12:59 PM CDT IMPRESSION: No evidence of significant bone or joint space abnormality of the left ankle. Small posterior calcaneal spur seen at the Achilles tendon insertion site.. > Interpreting Provider: Neptali Marmolejo MD on 08/24/2024 12:59 PM Narrative 08/24/2024 12:59 PM CDT PROCEDURE: XR ANKLE LEFT 3VW OR MORE COMPARISON: No relevant available comparison. CLINICAL INFORMATION (none relevant/not provided if blank): Indication: M25.572: Pain in left ankle and joints of left foot Additional History: FINDINGS: AP, internal rotation and lateral weight-bearing views of the left ankle were obtained and shows no evidence of fracture nor malalignment. Ankle mortise appears normal in width and symmetric in appearance. Osseous structures appear normally aligned. Bony mineralization appeared normal. No evident joint effusion. Procedure Note Neptali Marmolejo MD - 08/24/2024 PROCEDURE: XR ANKLE LEFT 3VW OR MORE COMPARISON: No relevant available comparison. CLINICAL INFORMATION (none relevant/not provided if blank): Indication: M25.572: Pain in left ankle and joints of left foot Additional History: FINDINGS: AP, internal rotation and lateral weight-bearing views of the left ankle were obtained and shows no evidence of fracture nor malalignment. Ankle mortise appears normal in width and symmetric in appearance. Osseous structures appear normally aligned. Bony mineralization appeared normal.No evident joint effusion. IMPRESSION: No evidence of significant bone or joint space abnormalityof the left ankle. Small posterior calcaneal spur seen at the Achilles tendon insertionsite.. > Interpreting Provider: Neptali Marmolejo MD on 08/24/2024 12:59 PM Soraida [facility] ORDERABLES Fi nal Result * GLUCOSE - POINT OF CARE (10/15/2012 6:56 PM CDT) Glucose WB/POC 90 70 - 106 mg/dL 10/15/2012 6:58 PM CDT [facility] Blood specimen (specimen) BLOOD SPECIMEN / Unknown 10/15/2012 6:56 PM CDT 10/15/2012 6:58 PM CDT Narrative [facility] - 10/15/2012 6:58 PM CDT NOTIFIED CAREGIVER Sari Carl MD LAB - POINT OF CARE ORDERABLES F inal Result [facility] [address] [place] [address] from Last 3 Months or Most Recently Relevant to Health Maintenance Insurance [facility] SELF PAY NO INSURANCE Member Subscriber Plan / Payer (Ef fective for All Dates) Name:Miguel A Cutler Member ID:Not on file Relation to Subscriber:Not on file Name:MIGUEL A CUTLER Subscriber ID:Not on file (Home) Address[address] [address] [place] [id number] Payer ID:Not on file Group ID:Not on file Type:Self Pay Address: [place], [place] Advance Directives * FULL RESUSCITATION (Latest Code Status on File) Date Activated Date Inactivated Comments 10/15/2012 10:40 PM 10/16/2012 6:40 PM Care Teams It Professional Relationship Specialty Start Date End Date Mushtaq Moore MD [address] [place] [address] PCP - General Vascular Surgery 08/17/24 Jad Salcedo MD Obstetrics and Gynecology 11/20/12
--- OUTSIDE RECORDS SUMMARY | 2024-09-21 10:13 | XMS_ITS | Clinical Summary ---
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
[2024-09-21 10:24] LABS: Cholesterol 173 mg/dL (0-200); HDL Direct 65 mg/dL; Triglycerides 109 mg/dL (<150)
[2024-09-21 10:34] LABS: LDL Cholesterol Direct 70 mg/dL
[2024-09-21 10:44] LABS: Free T4 Free Thyroxine 0.99 ng/dL (0.78-2.19)
[2024-09-21 10:50] LABS: Creatinine Urine 269.3 mg/dL
[2024-09-21 10:54] LABS: Thyroid Stimulating Hormone 0.827 uIU/mL (0.465-4.680)
[2024-09-21 11:00] LABS: MALB Creatinine Ratio 3.5 mg/g (0-30); Microalbumin Urine Random 9.3 mg/L (0-16.7)
[2024-09-21 12:36] LABS: Hemoglobin A1C 6.2 % (<5.7)
== END 2024-09-21 09:37 | disposition home or self-care (01) ==
LOC: ANHLAB 09:37
PROVIDERS: PCP Emergency Medicine; Visit Provider Emergency Medicine
DX: Z00.00 Encounter for general adult medical examination without abnormal findings (principal); D72.829 Elevated white blood cell count, unspecified
CPT/HCPCS: 36415; 80061; 82043; 83036; 84439; 84443; 85027

== ENCOUNTER 2024-11-24 11:19 | Outpatient (CLI) | payer OTHER, SELFPAY ==
--- NOTE | ~2024-11-24 | XR_ITS ---
EXAMINATION: XR chest 2V 11/24/2024 11:57 INDICATION: Diaphragmatic hernia without obstruction COMPARISON: None FINDINGS: The lungs are clear. The cardiomediastinal silhouette is within normal limits. There are no pleural effusions. There is no pneumothorax suspected. IMPRESSION: 1: NO ACUTE CARDIOPULMONARY DISEASE. Reviewed, dictated and finalized at location A.
--- NOTE | 2024-11-24 11:33 | ECG_ITS ---
Test Date: 2024-11-24 11:45:27 Measurements Intervals [place] Rate: 80 P: -6 MI: 138 QRS: 29 QRSD: 77 T: 0 QT: 340 QTc: 394 Interpretive Statements SINUS RHYTHM BORDERLINE T WAVE ABNORMALITY- INFERIOR LEADS BASELINE ARTIFACT- I, II, III, AVR, AVL, AVF, V4-V6 BORDERLINE ECG Compared to ECG 02/04/2024 14:53:46 No significant changes Electronically Signed On 11-24-2024 11:47:16 CDT by Bj Frye D.O.
--- OUTSIDE RECORDS SUMMARY | 2024-11-24 11:55 | XMS_ITS | Clinical Summary ---
Author Organization [facility] Address [address] [facility] [place] [address] Care Team Providers Care Nursing Agency Manager Name Role Phone Jad Salcedo MD Unavailable [phone] Mushtaq Moore MD Primary Care Provider [phone] Source Comments [facility],non-owned Affiliates and Associated Physician Practices is amultiple site organization consisting of ambulatory clinics and hospital sitesin [place], [place], [place] and [place]. This disclosure is being madepursuant to the Care Everywhere program and may not contain all information available regarding this patient. Last updated 17.[facility] Allergies Active Allergy Reactions Criticality Noted Date Comments Amoxicillin Rash,Swelling Medium 05/13/2018 yeast, swelling vaginal area and rash on body Medications * Be aware that medications may not be up to date on this document. Alwaysverify current medications with the patient. famotidine (PEPCID) 20 MG tablet Take 1 Tab by mouth 2 times daily. 90 Tab 3 3 Active Doxylamine-Pyrid oxine (DICLEGIS) 10-10 MG TBEC Take 1 Tab by mouth once daily. 30 Tab 6 3 Active bisacodyl EC 5 MG tablet TAKE 2 TABLETS BY MOUTH TODAY. REPEAT IN THE MORNING IF NO RESULTS 4 Active HYDROcodone-acet aminophen (Lasara) 5-325 MG tablet TAKE 1 TAB BY MOUTH EVERY 6 HOURS NEEDED FOR PAIN. MODERATE (4-6 ON SCALE) SEVERE (7-10 ON SCALE) 3 Active NIFEdipine CR osmotic 24hr (Procardia-XL) 30 MG tablet TAKE 1 TABLET EVERY DAY BY ORAL ROUTE, FOR HIGH BLOOD PRESSURE. 5 Active sucralfate (Carafate) 1 GM tablet TAKE 1 TABLET (1 G) BY MOUTH EVERY 6 HOURS FOR 1 MONTH 5 Active traMADol (Ultram) 50 MG tablet TAKE 1 TABLET BY MOUTH THREE TIMES A DAY NEEDED FOR BACK PAIN 5 Active meloxicam (Mobic) 15 MG tabletIndication s:Achilles tendinitis of left lower extremity,Sprain of left ankle, unspecified ligament, subsequent encounter Take 1 (one) tablet by mouth once daily 30 tablet 2 5 Active Active Problems Patient Care Coordination No [...] Encounters Date Type Department Care Team Description 10/08/2024 10:15 AM CDT Office Visit [facility] - Orthopedic Surgery [address] [place] [phone] Soraida Gary PA Achilles tendinitis of left lower extremity (Primary Dx); Sprain of left ankle, unspecified ligament, subsequent encounter 10/08/2024 Travel 09/10/2024 10:45 AM CDT Office Visit [facility] - Orthopedic Surgery [address] [place] [phone] Soraida Gary PA Sprain of left ankle, unspecified ligament, subsequent encounter (Primary Dx); Achilles tendinitis of left lower extremity 09/10/2024 Travel 09/01/2024 11:41 AM CDT Anesthesia Event [facility] END[facility]COPY [address] [place] [address] Johnathon Osborne II, MD Samantha, Rosie Loya, CONTAMINATION CONSULTANT-TURNER OFF 09/01/2024 11:00 AM CDT - 09/01/2024 11:30 AM CDT Surgery [facility] [address] [place] [address] Kalpesh Beauchamp MD EGD w/ [facility]--off PPI 09/01/2024 9:54 AM CDT - 09/01/2024 12:56 PM CDT Hospital Encounter [facility] [address] [place] [address] Kalpesh Beauchamp MD Surgery General Discharge Disposition: Home or Self Care 09/01/2024 Travel 08/26/2024 Telephone [facility] [address] [place] [address] Chris Craven, RN Confirmation 08/24/2024 11:00 AM CDT Office Visit [facility] - Orthopedic Surgery [address] [place] [phone] Soraida Gary PA Sprain of left ankle, unspecified ligament, initial encounter (Primary Dx) 08/24/2024 10:31 AM CDT - 08/24/2024 11:59 PM CDT Hospital Encounter [facility] - Orthopedics [address] [place] [address], [address] [place] [phone] Soraida Gary PA Discharge Disposition: Home or Self Care 08/24/2024 Travel from Last 3 Months Social History Tobacco Use Types Packs/Day Years Used Date Smoking Tobacco: Former Cigarettes Smokeless Tobacco: Never Tobacco Cessation:Counseling Given: Not Answered Alcohol Use Standard Drinks/Week Comments No 0 (1 standard drink = 0.6 oz pur e alcohol) PHQ-2 Answer Date Recorded Patient Health Questionnaire-2 Score 5 10/08/2024 Comments No Sex and Gender Information Value Date Recorded Sex Assigned at Not on file 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 Gender Identity Not on file Sexual Orientation [...] Care Team (Late st Contact Info) Description 01/04/2025 9:45 AM CDT Office Visit [facility] - Orthopedic Surgery [address] [place] [phone] Soraida Gary PA [address] [place] [phone] Health Maintenance Due Date Last Done Comments LIPID TESTING 1981 MAMMOGRAM 1981 HIV SCREENING 1996 HEPATITIS C SCREENING 05/15/1999 DTAP/TDAP/TD VACCINES (1 - Tdap) 2000 HEPATITIS B VACCINE (1 of 3 - 19+ 3-dose series) 2000 PAP SMEAR 2002 HPV VACCINE (1 - 3-dose SCDM series) 2008 COVID-19 VACCINE ( - season) 2023 DEPRESSION SCREENING 04/08/2024 INFLUENZA VACCINE (#1) 2024 SCREENING FOR DIABETES 11/04/2026 , 11/05/2023, [...] Comments EGD Routine 09/01/2024 11:43 AM CDT NM ESOPH RUSSELL TEST; W/NASAL CATH PH ELEC PLCMT REC 09/01/2024 11:35 AM CDT Heartburn Nausea and vomiting, unspecified vomiting type NM ED EGD FLEX TRANSORAL DX 09/01/2024 11:35 [...] of joint of left ankle and foot GLUCOSE - POINT OF CARE Routine 10/15/2012 [...] the procedure. Procedure Code(s): --- Professional --- 19845, Esophagogastroduo denoscopy, flexible, transoral; diagnostic, including collection of specimen(s) by brushing or washing, when performed (separate procedure) Diagnosis Code(s): --- Professional --- K21.01, Gastro-esophageal reflux disease with esophagitis, with bleeding K44.9, Diaphragmatic hernia without obstruction or gangrene CPT copyright 2021 [employer]. All rights reserved. The codes documented in this report are preliminary and upon remote inpatient coder review may be revised to meet current compliance requirements. Kalpesh Beauchamp MD 09/01/2024 12:05:43 PM Note Initiated On: 09/01/2024 11:43 AM Number of Addenda: [address] 09/01/2024 11:4 3 AM CDT us Kalpesh Beauchamp MD GI PROCEDURE ORDERABLES Edited Result - Final [facility] * HCG URINE QUALITATIVE - POCT (IP) INTERFACED (09/01/2024 10:24 AM CDT) HCG Qual Urine Negative Negative 09/01/2024 10:31 AM CDT [facility] Urine URINE / Unknown 09/01/2024 1 0:24 AM CDT 09/01/2024 10:31 AM CDT Kalpesh Beauchamp MD LAB - POINT OF CARE ORDERABLES Final Result Performing Organization Address City/[facility]/ZIP Co de Phone Number [facility] [address] [place] [address], [place] [phone] * HCG URINE QUAL POCT NOTIFICATION (09/01/2024 10:08 AM CDT) Comment Notification Label Only - See Separate Report 09/01/2024 11:31 AM CDT [facility] Urine URINE / Unknown 09/01/2024 1 0:08 AM CDT 09/01/2024 10:08 AM CDT Kalpesh Beauchamp MD LAB - URINALYSIS ORDERABLES Fin al Result Performing Organization Address [facility] Co de Phone Number [address] [address], [place] [phone] * XR Foot Left 3Vw or More [...] POINT OF CARE (10/15/2012 6:56 PM CDT) Pathologist [facility] Glucose WB/POC 90 70 - 106 mg/dL 10/15/2012 6:58 PM CDT [facility] Blood specimen (specimen) BLOOD SPECIMEN / Unknown 10/15/2012 6:56 PM CDT 10/15/2012 6:58 PM CDT Narrative [facility] - 10/15/2012 6:58 PM CDT NOTIFIED CAREGIVER Sari Carl MD LAB - POINT OF CARE ORDERABLES F inal Result [facility] [address] [place] [address] from Last 3 Months or Most Recently Relevant to Health Maintenance Insurance [facility] SELF PAY NO INSURANCE Member Subscriber Plan / Payer (Ef fective for All Dates) Name:Miguel A Cutler Member ID:Not on file Relation to Subscriber:Not on file Name:MIGUEL A CUTLER Subscriber ID:Not on file (Home) Address: [facility] [place] [address] [address] Payer ID:Not on file Group ID:Not on file Type:Self Pay Address: [place], [place] Advance Directives * FULL RESUSCITATION (Latest Code Status on File) Date Activated Date Inactivated Comments 10/15/2012 10:40 PM 10/16/2012 6:40 PM Care Teams Nursing Agency Manager Relationship Specialty Start Date End Date Mushtaq Moore MD [address] [place] [address] PCP - General Vascular Surgery 08/17/24 Harshad-Jad Wayne MD Obstetrics and Gynecology 11/20/12
--- OUTSIDE RECORDS SUMMARY | 2024-11-24 11:55 | XMS_ITS | Encounter Summary ---
Author Organization [facility] Address [address] [place] [address] Care Team Providers Care Bottom Bleacher Name Role Phone Jad Salcedo MD Unavailable [phone] Mushtaq Moore MD Primary Care Provider [phone] Reason for Referral * Consultation (Routine) - Closed Specialty Diagnoses / Procedures Referred By Contac t Referred To Contact Orthopedics Diagnoses Pain in left ankle and joints of left foot Shola Mark MD [address] [address] Phone: tel: fax: [facility] - Orthopedic Surgery [address] [place] [address] Phone: tel: fax: Referral ID Status Reason Start Date Expiration Date V isits Requested Visits Authorized [id number] Closed Specialty Services Required 02/07/2024 02/06/2025 1 1 Encounter Details Date Type Department Care Team (Latest Contact Info) Description 02/07/2024 Transcribe Orders [facility] - Centralized Scheduling [address] [place] [phone] Shola Mark MD [address] [phone] Pain in left ankle and joints of left foot Social History Tobacco Use Types Packs/Day Years Used Date Smoking Tobacco: Former Cigarettes Smokeless Tobacco: Never Alcohol Use Standard Drinks/Week Comments No 0 (1 standard drink = 0.6 oz pur e alcohol) Comments No Sex and Gender Information Value Date Recorded Sex Assigned at Not on file 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 [place] [phone] Scheduled Referrals Name Type Priority Associated Diagnoses Order Schedule AMB REFERRAL TO ORTHOPEDICS Outpatient Referral Routine Pain in left ankle and joints of left foot 1 Occurrences starting 02/07/2024 until 02/06/2025 documented as of this encounter Visit Diagnoses Diagnosis Pain in left ankle and joints of left foot- Primary documented in this encounter Care Teams Bottom Bleacher Relationship Specialty Start Date End Date Mushtaq Moore MD [address] [place] [address] PCP - General Vascular Surgery 08/17/24 Harshad-Jad Wayne MD Obstetrics and Gynecology 11/20/12 documented as of this encounter
--- OUTSIDE RECORDS SUMMARY | 2024-11-24 11:55 | XMS_ITS | Clinical Summary ---
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
--- OUTSIDE RECORDS SUMMARY | 2024-11-24 11:55 | XMS_ITS | Clinical Summary ---
Author Organization [facility] Address [facility] [place] [address] Care Team Providers Care Evp Head [employer] Experience Strategy Name Role Phone Shola Mark MD Primary Care Provider [phone] Allergies Active Allergy Reactions Criticality Noted Date [...] 8:53 AM CDT Height 162.6 cm (5' 4) 11/05/2023 11:08 AM CDT Body Mass Index 33.94 11/05/2023 8:53 AM CDT Plan of Treatment Health Maintenance Due Date Last Done Comments Cervical Cancer Screening Julián vera Smear (Age 30 to 64) Every 3 Years 1981 Annual Physical 1984 Hepatitis C 1999 Hepatitis B Vaccines (1 of 3 - 19+ 3-dose series) 2000 HPV Vaccines (1 - 3-dose SCD M series) 2008 Cervical Cancer Screening Julián vera with HPV Testing (Age 30 to 64) Every 5 Years 2011 Cervical Cancer Screening wi th HPV 2011 Mammogram Screening 2021 COVID-19 Vaccine ( - 2023-2 5 season) 2023 DTaP, Tdap and Td Vaccines ( 4 - Td or Tdap) 08/28/2028 08/28/2018, 05/10/2008, 07/29/1985 Meningococcal B Vaccine Aged Out No l onger eligible based on patient's age to complete this topic Meningococcal Vaccine Aged Out No miranda true eligible based on patient's age to complete this topic Pneumococcal Vaccine: Pediatrics (0 to 5 Years) and At-Risk Patients (6 to 49 Years) Aged Out No longer eligible b ased on patient's age to complete this topic RSV Immunizations Under 20 Months Aged Out No longer eligible b ased on patient's age to complete this topic Insurance [employer] Care Teams Evp [employer] Experience Strategy Relationship Specialty Start Date End Date Shola Mark MD PCP - General 08/12/16
[2024-11-24 12:05] LABS: Hematocrit 40.1 % (37.0-47.0); Hemoglobin 12.6 g/dL (12.0-15.0); Immature Granulocyte Percent A 0.1 % (0-0.5); Lymphocytes Absolute Auto 2.61 K/mm3 (0.9-3.2); Mean Corpuscular HGB Conc 31.4 g/dl (32-36); Mean Corpuscular Hemoglobin 26.7 pg (26-34); Mean Corpuscular Volume 85.0 fl (80-100); Nucleated Red Blood Cells Absolute Auto 0.000 K/mm3 (0.0-0.012); Nucleated Red Blood Cells Perc 0.0 % (0.0-0.2); Platelet Count Result 367 k/mm3 (150-375); Red Blood Count 4.72 M/mm3 (4.2-5.4); White Blood Count 8.6 K/mm3 (4.5-10.0)
[2024-11-24 12:28] LABS: Anion Gap 7 mmol/L (4-12); Blood Urea Nitrogen 8 mg/dL (7-17); Calcium 9.3 mg/dL (8.4-10.2); Carbon Dioxide 26 mmol/L (22-30); Chloride 106 mmol/L (98-107); Estimated Glomerular Filt Rate > 60; Glucose 103 mg/dL (65-110); Potassium 3.8 mmol/L (3.4-5.0); Sodium 139 mmol/L (137-145)
== END 2024-11-24 11:20 | disposition home or self-care (01) ==
LOC: ANHSURGERY 11:24
PROVIDERS: PCP Emergency Medicine; Visit Provider Surgery
DX: K44.9 Diaphragmatic hernia without obstruction or gangrene (principal); K21.9 Gastro-esophageal reflux disease without esophagitis
CPT/HCPCS: 36415; 71046; 80048; 85025; 86850; 86900; 86901; 93005

== ENCOUNTER 2024-12-02 00:57 | Day surgery (SDC) | payer OTHER, SELFPAY ==
[2024-11-20 14:15] VITALS: BMI 36.7
--- NOTE | 2024-11-20 14:36 | PC.NURSE ---
Report to the Outpatient Waiting Room, entrance under the green pavilion located off [facility], at time _06:30AM on 12/02/24 . Planned Procedure Time: __08:30AM .? Time changes happen often and if your time is changed the preop area will call you the afternoon before. - You and your visitor will be asked to self-screen and do not enter if you have any COVID symptoms. Please call surgeon if you need to reschedule. - A mask is optional within the hospital at this time. Patients may have clear liquids (water, carbonated beverages, clear teas, apple juice) until 3 hours prior to surgery with a maximum of 20 ounces. - No food from midnight until time of surgery and no smoking, vaping, or chewing tobacco (or any form of nicotine). No chewing gum, candy or mints. Take only the following medications with a SIP of water on the morning of surgery: _NIFEDIPINE DO NOT STOP ANY OF YOUR OTHER PRESCRIPTION MEDICATIONS PRIOR TO SURGERY EXCEPT THE FOLLOWING Hold all vitamins and supplements for 3 days per anesthesiologist. Medications to discontinue per physician N/A Date to take last dose N/A Please no make-up, nail luxembourgish, hairspray, perfume, deodorant, or body powder the day of surgery.? No jewelry (including any body piercings) or valuables the day of surgery, leave them at home.? Please take a shower or bath the night before, or the morning of, surgery with an antibacterial soap.? Wear comfortable, loose fitting clothing.? Bring an overnight bag for your admission. - Jewelry must be removed prior to entering the operating room.? Rings and piercings that are not removed may be cut off. - The hospital will not accept responsibility for valuables.? - Please leave all valuables, including medications, at home the day of surgery. If you are going home after surgery, a licensed hack driver must drive you home.? - NO public transportation without another adult if you receive anesthesia. - We recommend that an adult stay with you for 24 hours following discharge. - We also recommend that you do not drive, make important decision, drink alcoholic beverages, or take any drugs that were not prescribed by your health care provider for at least 24 hours after your discharge time. Follow any additional instructions given to you from your surgeon. Telephone instructions given to __Bay and asked if any additional questions and then verbalized understanding. Patient advised to call surgeon office or pre surgery nurse liaison [phone] if any additional questions.
--- NOTE | 2024-12-01 13:21 | PM.IMHP ---
H&P: HPI History of Present Illness Date/Time: 12/01/24 13:21 Chief Complaint: Reflux Narrative: patient is a 44-year-old woman whom I saw initially 03/16/2024. At that time she had 3 main complaints. She had been vomiting after most meals ever since September of 2019 for or 6 months previously. She also had severe constipation and was having bowel movements only about once a week. Additionally, for the last 2 months, she was having lower abdominal pain. She had a history of gastroesophageal reflux disease and was on proton pump inhibitors. She also had a history of migraines. Her exam showed her to be tender in the lower abdominal midline and that it was painful for her to go from a sitting to a supine position. She had been to the emergency room at [facility] on 02/04/2020 for with lower abdominal pain and emesis. CT scan of the abdomen and pelvis there was negative. By my review it did show a small hiatal hernia. The patient had significant testing following her office visit in March of 2024. She had a right upper quadrant ultrasound which was normal. She had an upper GI small-bowel follow-through with water-soluble contrast -this showed a small hiatal hernia and a transit time of 45 minutes from small bowel to colon. She had a pelvic ultrasound which was normal. She had a HIDA scan which showed a ejection fraction of 97%. It was noteworthy that shortly after the study, she regurgitated the Ensure. A gastric emptying study was attempted on 06/15/2024. The patient vomited 20 minutes after eating the radial labeled medial and us know gastric emptying could be measured. She had had an EGD at [facility] ED in December of 2023 which showed gastritis and inflammation. I never did get the report from that. Patient saw gastroenterology for her constipation. She had a colonoscopy performed on 06/05/2024. This showed a small tubular adenoma of the cecum but was otherwise negative. She has seen GI since that time and has been diagnosed with irritable bowel syndrome-constipation predominant(IBS-C) she takes Linzess 290 mcg daily which has helped. She still takes dicyclomine p.r.n. for cramping and MiraLax for hard bowel movements. Further evaluation of her GERD was performed. On 07/21/2024 she had esophageal manometry done at [facility] which was normal. PH twice testing was also attempted but she vomited up the pH probe before any testing could be done. Since PH testing by traditional means was not forthcoming, she had pH testing by [facility] while off proton pump inhibitors. This was markedly positive for heartburn and regurgitation. Her DeMeester score was quite elevated at 25.7. The procedure was done September 01, 2024. Normal DeMeester score is less than 14.7. She has followed up with me in the office. She continues to have heartburn and regurgitation frequently despite taking Pepcid twice a day and sucralfate daily. She is taken to surgery now for robotic repair hiatal hernia with partial fundoplication. Review of Systems Review of Systems: All systems reviewed & are unremarkable except as noted in HPI and below ( HPI) [facility] Past Medical History Medical History GERD (gastroesophageal reflux disease) Gastritis Nausea and vomiting Change in bowel habits History of migraine History of gastroesophageal reflux (GERD) Social History Social History Smoking packs per day: 3 Smoking cigarettes per day: 60.0 Years smoked: 7 Smoking pack-years: 21.00 Smoking status: Former smoker Tobacco type: cigarettes and e-cigarettes/vaping Smoking end date: 04/08/12 Additional smoking assessment comments: VAPES ONLY Alcohol intake: current Drinks per week: 3 Substance use: never Do You Feel Safe in your Home?: Yes Lack of Transportation: No Lack of Food: Never True Current Housing: I Have Housing Concerned About Future Housing: No Difficulty Paying Gas/Electric Bills: No Difficulty Paying for Meds: No Currently Unemployed: No Education: High School Diploma/GED Difficulty w/ Childcare or Family Care: No Living arrangements: with family Spiritual care concerns: No Meds Home Medications and Allergies Home Medications ?Medication ?Instructions ?Recorded ?Confirmed ?Type acetaminophen 300 mg-codeine 30 mg 1 tablet PO Q8H PRN pain 05/12/24 11/20/24 History tablet nifedipine 30 mg tablet,extended 30 mg PO DAILY 05/12/24 11/20/24 History release tramadol 100 mg capsule 100 mg PO .prn 05/12/24 11/20/24 History 24h,extended release(25-75) famotidine 40 mg tablet 40 mg PO BID 3 months #180 tabs 06/30/24 11/20/24 Rx dicyclomine 20 mg tablet 20 mg PO TID 1 month #90 tabs 08/04/24 11/20/24 Rx prochlorperazine maleate 10 mg 10 mg PO Q8H PRN nausea and 08/04/24 11/20/24 Rx tablet (Compazine) vomiting #30 tabs linaclotide 290 mcg capsule 290 mcg Capsule#3 Samples 11/05/24 11/20/24 Sample (Linzess) plecanatide 3 mg tablet (Trulance) 3 mg PO DAILY #30 tabs 11/23/24 Rx lubiprostone 24 mcg capsule 24 mcg PO BID #60 caps 11/25/24 Rx (Amitiza) Allergies Allergy/AdvReac Type Severity Reaction Status Date / Time amoxicillin Allergy Swelling Verified 11/20/24 14:28 Exam Const: General: comfortable, no acute distress, alert and awake Nutritional Appearance: obese HENMT: Head: normocephalic and atraumatic Mouth: Yes Normal oral and palatal mucosa present Eyes: Conjunctivae: conjunctivae normal Pupils: Equal, round and reactive pupils present EOM: EOMs intact bilaterally Neck: Neck: normal visual inspection, no lymphadenopathy and nontender Resp: Effort & Inspection: normal respiratory effort Auscultation: clear to auscultation bilaterally Cardio: Rate: regular rate Rhythm: regular rhythm Heart sounds: no gallops, no murmurs and no rubs GI: Inspection: non-distended, obesity and no visible herniation GI Palp: Yes Soft to palpation, Yes Tenderness to palpation present (GI) ( lower abdominal tenderness persists), No Hepatomegaly present, No Splenomegaly present, No Hernia present and No Palpable mass present Auscultation: normal bowel sounds Skin: Lesions: no lesions Rashes: no rashes Neuro: General: no focal motor deficits and CN's II-XI intact bilaterally Cranial nerves: Yes Equal, round and reactive pupils present, Yes Bilaterally intact EOM present, Yes facial symmetry and Yes Midline tongue present Speech: normal speech Motor exam (neuro): 5/5 motor strength present throughout and Motor abnormalities not present Extrem: General: no clubbing, cyanosis or edema and edema Psych: Affect: normal affect Thought process: Normal thought process present Insight: Good insight present (Psych) H&P: Results Imaging CT scan - abdomen: Attestation: I personally reviewed and interpreted this imaging study as follows: ( CT scan abdomen and pelvis, upper GI small-bowel follow-through, air contrast barium enema) My impression: please see HPI for all these results Assessment and Plan Assessment and plan (1) Hiatal hernia: Code(s): K44.9 - Diaphragmatic hernia without obstruction or gangrene Status: Chronic Assessment and Plan: although hiatal hernia is not large, patient has significant heartburn and regurgitation. Much of her testing could either not be done or had to be done in a different manner due to regurgitation or emesis. Her [facility] pH testing however was markedly positive for reflux. Plan is to proceed with robotic laparoscopic repair of hiatal hernia with partial fundoplication. I have discussed this procedure with the patient. I discussed the nature of the procedure and what is being done in the procedure. I explained the usual time in the hospital and overall recovery time. I discussed potential complications and that symptoms may persist to some degree following the surgery. All questions were answered. She understands and agrees to go ahead. (2) GERD (gastroesophageal reflux disease): Qualifiers: Esophagitis presence: esophagitis presence not specified Qualified Code(s): K21.9 - Gastro-esophageal reflux disease without esophagitis Code(s): K21.9 - Gastro-esophageal reflux disease without esophagitis Status: Chronic Assessment and Plan: Demonstrated on [facility] pH testing. Please see above. (3) Regurgitation of food: Code(s): R11.10 - Vomiting, unspecified Status: Chronic Assessment and Plan: Due to hiatal hernia and reflux (4) Irritable bowel syndrome (IBS): Qualifiers: Irritable bowel syndrome type: with constipation Qualified Code(s): K58.1 - Irritable bowel syndrome with constipation Code(s): K58.9 - Irritable bowel syndrome, unspecified Status: Chronic Assessment and Plan: takes Linzess with p.r.n. dicyclomine and MiraLax.
[2024-12-02] VITALS (15 sets, daily range): BP systolic 102–134; BP diastolic 61–97; PULSE 76–112; RESP 13–24; TEMP 36.2–36.7; O2SAT 97–100
--- NOTE | ~2024-12-02 | XR_ITS ---
XR chest 1V portable 12/02/2024 10:55 Indication: Shortness of breath Procedure: AP portable chest Comparison: 11/24/2024 Findings: There are bilateral pneumothoraces. Heart size normal. Endotracheal tube tip in the right mainstem bronchus. Recommend further retraction approximately 4 cm. Impression: 1: Moderate bilateral pneumothorax. 2: Endotracheal tube tip right main stem bronchus. Recommend retraction. Dr. Abhijit Loving discussed with the couturiere in surgery for Dr. Mushtaq Moore MD at 12/02/2024 11:24 CDT. Reviewed, dictated and finalized at location O. Impression: 1: Moderate bilateral pneumothorax. 2: Endotracheal tube tip right main stem bronchus. Recommend retraction. Dr. Abhijit Loving discussed with the couturiere in surgery for Dr. Mushtaq Moore MD at 12/02/2024 11:24 CDT.
--- OUTSIDE RECORDS SUMMARY | 2024-12-02 01:00 | XMS_ITS | Clinical Summary ---
Author Organization [facility] Kids Note Address [address] [place] [address] Care Team Providers Care Alcohol And Drug Counselor Name Role Phone Jad Salcedo MD Unavailable Mushtaq Moore MD Primary Care Provider [phone] Source Comments [facility],non-owned Affiliates and Associated Physician Practices is amultiple site organization consisting of ambulatory clinics and hospital sitesin [place], [place], [place] and [place]. This disclosure is being madepursuant to the Care Everywhere program and may not contain all information available regarding this patient. Last updated 17.[facility] Kids Note Allergies Active Allergy Reactions Criticality Noted Date [...] IF NO RESULTS 4 Active HYDROcodone-acet aminophen ([place]) 5-325 MG tablet TAKE 1 TAB BY [...] Visit [facility] - Orthopedic Surgery [address] [place] [phone] Soraida Gary PA Achilles tendinitis of left lower extremity (Primary Dx); Sprain of left ankle, unspecified ligament, subsequent encounter 10/08/2024 Travel 09/10/2024 10:45 AM CDT Office Visit [facility] - Orthopedic Surgery [address] [place] [phone] Soraida Gary PA Sprain of left ankle, unspecified ligament, subsequent encounter (Primary Dx); Achilles tendinitis of left lower extremity 09/10/2024 Travel 09/01/2024 11:41 AM CDT Anesthesia Event [facility] [address] [place] [address] Johnathon Osborne II, MD Dobbs, Rosie Loya, [employer]-ETL CONSULTANT 09/01/2024 11:00 AM CDT - 09/01/2024 11:30 AM CDT Surgery [facility] [address] [place] [address] Kalpesh Beauchamp MD EGD w/ Da Silva--off PPI 09/01/2024 9:54 AM CDT - 09/01/2024 12:56 PM CDT Hospital Encounter [facility] [address] [place] [address] Kalpesh Beauchamp MD Surgery General Discharge Disposition: Home or Self Care 09/01/2024 Travel from Last 3 Months Social History [...] on file 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 Gender Identity Not on file Sexual Orientation [...] Description 01/04/2025 9:45 AM CDT Office Visit [facility] - [facility]opedic Surgery [address] [place] [address] Soraida Gary PA [address] [place] [phone] Health Maintenance Due Date Last Done Comments [...] Comments EGD Routine 09/01/2024 11:43 AM CDT CO ESOPH RUSSELL TEST; W/NASAL CATH PH ELEC PLCMT REC 09/01/2024 11:35 AM CDT Heartburn Nausea and vomiting, unspecified vomiting type CO ED EGD FLEX TRANSORAL DX 09/01/2024 11:35 AM CDT Heartburn Nausea and vomiting, unspecified vomiting type HCG URINE QUALITATIVE - POCT (IP) INTERFACED Routine 09/01/2024 10:24 AM CDT HCG URINE QUAL POCT NOTIFICATION STAT 09/01/2024 10:08 AM CDT Preop examination GLUCOSE - POINT OF CARE Routine 10/15/2012 6:56 PM CDT from Last 3 Months or Most Recently Relevant to Health Maintenance Results * EGD (09/01/2024 11:43 AM CDT) Report Endoscopy POC Endoscopy Department Report _ Patient Name: Miguel A Carrillo Procedure Date: 09/01/2024 11:43 AM Date of [...] found 33 cm from the incisors. The DA SILVA capsule with delivery system was introduced through the mouth and advanced into the esophagus, such that the DA SILVA pH capsule was positioned 27 cm from the incisors, which was 6 cm proximal to the GE junction. The DA SILVA pH capsule was then deployed and attached [...] hernia. - Normal examined duodenum. - The DA SILVA pH capsule was deployed. - No specimens collected. Recommendation: - Resume previous diet. - Continue present medications. - Return to GI clinic as previously scheduled. Attending Participation: I was present for the andrews portions of this procedure and immediately available for all non-andrews portions of the procedure. Procedure Code(s): --- Professional --- 53821, Esophagogastroduo denoscopy, flexible, transoral; diagnostic, including collection of specimen(s) by brushing or washing, when performed (separate procedure) Diagnosis Code(s): --- Professional --- K21.01, Gastro-esophageal reflux disease with esophagitis, with bleeding K44.9, Diaphragmatic hernia without obstruction or gangrene CPT copyright 2021 [employer]. All rights reserved. The codes documented in this report are preliminary and upon medical insurance coder review may be revised to meet current compliance requirements. Kalpesh Beauchamp MD 09/01/2024 12:05:43 PM Note Initiated On: 09/01/2024 11:43 AM Number of Addenda: [address] [address] [facility]ATION 09/01/2024 11:4 3 AM CDT Kalpesh Beauchamp MD GI PROCEDURE ORDERABLES Edited Result - Final Performing Organization Address City/[facility]/ZIP Co de Phone Number [facility] * HCG URINE QUALITATIVE - POCT (IP) INTERFACED (09/01/2024 10:24 AM CDT) HCG Qual Urine Negative Negative 09/01/2024 10:[address] [facility] Urine URINE / Unknown 09/01/2024 1 0:24 AM CDT 09/01/2024 10:31 AM CDT Kalpesh Beauchamp MD LAB - POINT OF CARE ORDERABLES Final Result Performing Organization Address [facility] Co de Phone Number [address] [address], [place] [phone] * HCG URINE QUAL POCT NOTIFICATION (09/01/2024 10:08 AM CDT) Comment Notification Label Only - See Separate Report 09/01/2024 11:[address] [facility] Urine URINE / Unknown 09/01/2024 1 0:08 AM CDT 09/01/2024 10:08 AM CDT us Kalpesh Beauchamp MD LAB - URINALYSIS ORDERABLES Fin al Result Performing Organization Address [facility] Co de Phone Number [address] [address], [place] [phone] * GLUCOSE - POINT OF CARE (10/15/2012 6:56 PM CDT) Glucose WB/POC 90 70 - 106 mg/dL 10/15/2012 6:58 PM CDT [facility] Blood specimen (specimen) BLOOD SPECIMEN / Unknown 10/15/2012 6:56 PM CDT 10/15/2012 6:58 PM CDT Narrative [facility] - 10/15/2012 6:58 PM CDT NOTIFIED CAREGIVER Sari Carl MD LAB - POINT OF CARE ORDERABLES F inal Result Performing Organization Address City/State/[facility] Co de Phone Number [facility] [address] [place] [address] from Last 3 Months or Most Recently Relevant to Health Maintenance Insurance [facility] SELF PAY NO INSURANCE Member Subscriber Plan / Payer (Ef fective for All Dates) Name:Miguel A Carrillo Member ID:Not on file Relation to Subscriber:Not on file Name:MIGUEL A CARRILLO Subscriber ID:Not on file (Home) Address: [address] [place] [phone] Payer ID:Not on file Group ID:Not on file Type:Self Pay Address: [place], [place] Advance Directives * FULL RESUSCITATION (Latest Code Status on File) Date Activated Date Inactivated Comments 10/15/2012 10:40 PM 10/16/2012 6:40 PM Care Teams Alcohol And Drug Counselor Relationship Specialty Start Date End Date Mushtaq Moore MD [address] [place] [address] PCP - General Vascular Surgery 08/17/24 Colon-Jad Wayne MD Obstetrics and Gynecology 11/20/12
--- OUTSIDE RECORDS SUMMARY | 2024-12-02 01:00 | XMS_ITS | Encounter Summary ---
Author Organization [facility] Address [address] [place] [address] Care Team Providers Care Cloud Infrastructure Architect Name Role Phone Jad Salcedo MD Unavailable [phone] Mushtaq Moore MD Primary Care Provider [phone] Reason for Referral * Consultation (Routine) - Closed Specialty Diagnoses / Procedures Referred By Contac t Referred To Contact Orthopedics Diagnoses Pain in left ankle and joints of left foot Shola Mark MD [address] [address] Phone: tel: fax: [facility] - Orthopedic Surgery [address] [place] [address] Phone: tel: fax: Referral ID Status Reason Start Date Expiration Date V isits Requested Visits Authorized [id number] Closed Specialty Services Required 02/07/2024 02/06/2025 1 1 Encounter Details Date Type Department Care Team (Latest Contact Info) Description 02/07/2024 Transcribe Orders [facility] - Centralized Scheduling [address] [place] [phone] Shola Mark MD [address] [address] Pain in left ankle and joints of left foot Social History Tobacco Use Types Packs/Day Years Used Date Smoking Tobacco: Former Cigarettes Smokeless Tobacco: Never Alcohol Use Standard Drinks/Week Comments No 0 (1 standard drink = 0.6 oz pur e alcohol) Comments No Sex and Gender Information Value Date Recorded Sex Assigned at Not on file 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 Gender Identity Not on file Sexual Orientation Not on file documented as of this encounter Plan of Treatment Upcoming Encounters Date Type Department Care Team (Late st Contact Info) Description 01/04/2025 9:45 AM CDT Office Visit [facility] - Orthopedic Surgery [address] [place] [address] Soraida Gary PA [facility] [place] [phone] Scheduled Referrals Name Type Priority Associated Diagnoses Order Schedule AMB REFERRAL TO ORTHOPEDICS Outpatient Referral Routine Pain in left ankle and joints of left foot 1 Occurrences starting 02/07/2024 until 02/06/2025 documented as of this encounter Visit Diagnoses Diagnosis Pain in left ankle and joints of left foot- Primary documented in this encounter Care Teams Cloud Infrastructure Architect Relationship Specialty Start Date End Date Mushtaq Moore MD [address] [place] [address] PCP - General Vascular Surgery 08/17/24 Harshad-Jad Wayne MD Obstetrics and Gynecology 11/20/12 documented as of this encounter
--- OUTSIDE RECORDS SUMMARY | 2024-12-02 01:00 | XMS_ITS | Clinical Summary ---
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
--- NOTE | 2024-12-02 07:24 | WPDANESEPPF ---
Anes - Initial Pre Proc Eval Procedure: Operation Date: 12/02/24 08:30 Proposed Procedures p Robotic Repair Hiatal Hernia with Partial Fundoplication - Mushtaq Moore MD Date/Time: 12/02/24 07:24 Surgeon: Mushtaq Moore MD Pre Op Diagnosis: hiatal hernia, GERD Patient Data Age: 44 Gender: F Height: 1.63 m Weight: 97.1 kg Allergies Allergy/AdvReac Type Severity Reaction Status Date / Time amoxicillin Allergy Swelling Verified 12/02/24 07:04 Home Medications ?Medication ?Instructions ?Recorded ?Confirmed ?Type acetaminophen 300 mg-codeine 30 mg 1 tablet PO Q8H PRN pain 05/12/24 12/02/24 History tablet nifedipine 30 mg tablet,extended 30 mg PO DAILY 05/12/24 12/02/24 History release tramadol 100 mg capsule 100 mg PO .prn 05/12/24 12/02/24 History 24h,extended release(25-75) famotidine 40 mg tablet 40 mg PO BID 3 months #180 tabs 06/30/24 12/02/24 Rx dicyclomine 20 mg tablet 20 mg PO TID 1 month #90 tabs 08/04/24 12/02/24 Rx prochlorperazine maleate 10 mg 10 mg PO Q8H PRN nausea and 08/04/24 12/02/24 Rx tablet (Compazine) vomiting #30 tabs linaclotide 290 mcg capsule 290 mcg Capsule#3 Samples 11/05/24 12/02/24 Sample (Linzess) plecanatide 3 mg tablet (Trulance) 3 mg PO DAILY #30 tabs 11/23/24 12/02/24 Rx lubiprostone 24 mcg capsule 24 mcg PO BID #60 caps 11/25/24 12/02/24 Rx (Amitiza) Patient hx anesthesia problems: none Family hx anesthesia problems: none Results Review: All pre-operative results and documents have been reviewed as part of the pre-operative evaluation. [facility] Past Medical History Medical History GERD (gastroesophageal reflux disease) Gastritis Nausea and vomiting Change in bowel habits History of migraine History of gastroesophageal reflux (GERD) Social History Social History Smoking packs per day: 3 Smoking cigarettes per day: 60.0 Years smoked: 7 Smoking pack-years: 21.00 Smoking status: Former smoker Tobacco type: cigarettes and e-cigarettes/vaping Smoking end date: 04/08/12 Additional smoking assessment comments: Vaping only Alcohol intake: current Drinks per week: 3 Substance use: never Do You Feel Safe in your Home?: Yes Lack of Transportation: No Lack of Food: Never True Current Housing: I Have Housing Concerned About Future Housing: No Difficulty Paying Gas/Electric Bills: No Difficulty Paying for Meds: No Currently Unemployed: No Education: High School Diploma/GED Difficulty w/ Childcare or Family Care: No Living arrangements: with family Spiritual care concerns: No Anes - Eval Final PreProcedure Day of Procedure 12/02/24 07:24 Patient weight: obese Heart: regular rate and rhythm Lungs: decreased breath sounds Airway: Mallampati scale class III Neurological: alert and oriented Last oral intake: >/= 8 hours ASA classification: III Emergent: no Anesthetic plan: proceed Anesthesia type and monitoring: general ETT and standard monitoring Results Review: All pre-operative results and documents have been reviewed as part of the pre-operative evaluation. Informed Consent: The patient's anesthetic plan and its attendant risks and benefits were discussed with the patient/family/POA. Questions were solicited and answers provided to the satisfaction of the patient/family/POA.
[2024-12-02 07:39] LABS: BEDSIDEPREGUCG Negative (Negative)
[2024-12-02] MEDS: ACETAMINOPHEN 500 MG TABLET 1000 MG PO (07:41)
--- NOTE | 2024-12-02 07:43 | WPDHPUPDATE1 ---
History and Physical Update Update Date/Time: 12/02/24 07:43 History and Physical has been reviewed, including an updated exam of the patient. There are NO changes in the patient's condition. Risks, benefits, and alternatives have been discussed and questions answered. Patient agrees to proceed with procedure.
[2024-12-02] MEDS: LACTATED RINGERS 1,000 ML 30 ML IV CONT ×2 (07:48→12:45)
[2024-12-02] MEDS: KETOROLAC 15 MG/ML VIAL (*BKC) IV PUSH (07:49)
[2024-12-02] MEDS: ceFAZolin 2 GM in SODIUM CHLORIDE 0.9% IV 50 ML 100 ML IVPB (08:34)
[2024-12-02] MEDS: BUPIVACAINE/EPINEPHRINE 0.5% 50 ML VIAL 30 ML INFILTRATE (09:25)
[2024-12-02] MEDS: fentaNYL CITRATE INJ (*CRX) 100 MCG/2 ML VIAL 25 MCG IV PUSH ×3 (12:50→13:34)
--- NOTE | 2024-12-02 13:25 | P.OP_ITS ---
Procedure Note - Detailed Date of Procedure 12/02/24 Pre-op Diagnosis hiatal hernia, GERD Post-op Diagnosis Same Procedure Performed Robotic laparoscopic repair hiatal hernia with partial fundoplication and fundopexy Surgeon Mushtaq Moore MD Project Planner Karon STATON/Rojelio STATON Anesthesia General and Local Indications Patient has had longstanding intermittent vomiting which it turns out is regurgitation. Although she has a fairly small hiatal hernia, pH testing shows she has significant reflux. She is taken to surgery now for robotic laparoscopic repair of her hiatal hernia with fundoplication and fundopexy Findings Hiatal hernia Description of Procedure Patient was taken to surgery and induced into general anesthesia. The abdomen is prepped and draped. Robotic trocars were placed in the usual fashion starting with an applied Medical optical trocar in the left subcostal position. The remaining trocars were all placed under direct visualization including an 11 mm assist port in the midline above the umbilicus. The robot was then brought into the field. The camera was docked and targeted. The robotic instrument arms were docked and the instruments positioned appropriately. The surgeon went to the robotic console. The small grasping retractor was used to elevate the lateral segment of the left lobe of the liver. 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 It was sizable and was preserved. The stomach was stuck in the hiatal hernia and was not initially reducible. I divided the hepato gastric ligament preserving the blood vessel noted above. I then exposed the hernia sac at the apex of the hiatus and carefully gained access to the plane just outside of the hernia sac. Dissection and hemostasis were achieved largely with the vessel sealer. I then moved from anterior to posterior along the right mell dividing the hernia sac from the right mell. This was made more difficult by preserving this aberrant blood vessel described above. None the less this was able to be accomplished. I continued this dissection down to the posterior junction of the 2 crura. I then went to the apex of the hiatus again and divided the hernia sac from the left mell. I was able to proceed with this down to the posterior junction of the 2 crura. Stomach was quite attached to the peritoneum and was still stuck in the hernia sac although some had been reduced. I then elevated the greater traversed sure of the stomach and using the vessel sealer divided the omentum from the greater curvature of the stomach. I was able to enter the lesser sac and then carefully continued this dissection up the greater curvature towards the esophagogastric junction. The short gastric vessels near the spleen were carefully divided. Right lateral traction was used to finish dividing the left posterior adhesions of the stomach to the hiatus eventually the fundus of the stomach was freed completely. I went back to the hiatus and then carefully dissected the hernia sac so that the stomach was now in the abdomen. Taking care to avoid the anterior vagus nerve, I excised the hernia sac and the gastric fat pad with the vessel sealer. These were removed from the abdominal cavity and discarded. I then placed traction on the stomach near the esophagus and began the mediastinal dissection of the esophagus. I began with the area of the esophagus from 10:00 to 2:00 a.m. I freed this up to the level of the inferior pulmonary vein and actually beyond that. I then moved to the patient's left si de and posterior, or 2 o'clock to 6 o'clock position. While I was dissecting here, the patient developed hypoxemia and then bradycardia. It was most likely that the pleural cavity had been entered. We removed the instruments and stopped insufflation. We left the trocars in place. Medication and ventilation administered by Anesthesia slowly improved the patient situation to where she could be ventilated more normally, her heart rate was normal, and her oxygenation was good. We got a chest x-ray once she was more stable. This actually showed bilateral pneumothoraces but by the time it was read, the patient was already back in reverse Trendelenburg with instruments in place, being ventilated adequately and we were proceeding with the operation. Presumptively, there had been a temporary bilateral pneumothoraces. Once CO2 insufflation was stopped, the pleural space and abdominal cavity pressures had equilibrated. This allowed normal ventilation to gradually resume and insufflation to resume without compromise. No further respiratory or hemodynamic issues developed. The surgery was continued with the instruments in the same location as they were throughout the surgery. The mediastinal dissection of the esophagus was continued both on the left posterior lateral and right posterior oral lateral positions mobilizing the esophagus extensively. We now had at least 4 5 cm of intra-abdominal esophagus. There was no tension on the esophagus. The hiatus was exposed. Hiatal hernia was closed using [id number] 0 Ethibond suture. I then passed the fundus of the stomach be hind the esophagus from the patient's left to the right. The fundus was kept cephalad from the blood vessels described earlier. When the right side of the fundoplication was in good position, I robotically sutured 0 Ethibond suture to secure it. Two sutures were placed that included esophagus, hiatus and stomach. A 3rd suture was placed that was the apex of the hiatus and the stomach. Turning my attention now to the patient's left side of the hiatus. The greater curvature of the stomach on the left side was positioned for fundoplication. In similar fashion, 2 sutures were used to suture fundus to hiatus to esophagus. These were also 0 Ethibond. A 3rd suture was used to suture fundus to the apex of the diaphragmatic hiatus. All looked good. There was no evidence of bleeding. Patient was being ventilated adequately with normal hemodynamics. The instruments were removed and the robot was undocked. CO2 was evacuated and she was placed back in a supine position. Trocars were removed and skin wounds were closed with subcuticular 4-0 Monocryl skin suture. Patient was awakened and extubated without difficulty. She transferred to recovery in good condition. Sponge and needle counts were correct x2. Estimated Blood Loss -20 Drains No Packing No Pathology None sent Complications None Condition Stable Disposition PACU [facility] Billing Surgery - Charge Forward: Surgery Billing (Robotic laparoscopic repair hiatal hernia with partial fundoplication and fundopexy)
--- NOTE | 2024-12-02 14:43 | ADMGEN ---
This patient, Bay Cutler, was admitted to [facility] Surg Room 328-01. Patient/family oriented to hospital policies and general routines including ID bracelet, bed and alarms, visiting hours, pain management, procedures, bathroom and other care routines, personal items, smoking policy, room service/diet, and visiting hours. Information on how to activate the Rapid Response Team has been discussed. Patient/Family are encouraged to report perceived risks to care and to ask questions if they do not understand what they are told or what they should do.
[2024-12-02] MEDS: MORPHINE SULFATE (*CRX) 4 MG/ML INJ IV PUSH ×2 (15:01→20:35)
[2024-12-02] MEDS: LACTATED RINGERS 1,000 ML 100 ML IV CONT (15:18)
[2024-12-02] MEDS: DICYCLOMINE HCL 10 MG CAPSULE 20 MG PO (16:45)
[2024-12-02] MEDS: LUBIPROSTONE 24 MCG CAPSULE PO (16:45)
[2024-12-02] MEDS: MORPHINE SULFATE (*CRX) 2 MG/ML INJ IV PUSH (17:59)
[2024-12-02] MEDS: ENOXAPARIN 30 MG/0.3 ML SYRINGE SUB-Q (20:35)
[2024-12-02] MEDS: SENNA/DOCUSATE SODIUM TABLET 2 TAB PO (20:35)
[2024-12-03 00:08] VITALS: BP 125/77; PULSE 85; RESP 16; TEMP 36.6; O2SAT 99
[2024-12-03] MEDS: MORPHINE SULFATE (*CRX) 4 MG/ML INJ IV PUSH ×4 (01:33→15:01)
[2024-12-03] MEDS: LACTATED RINGERS 1,000 ML 100 ML IV CONT ×3 (01:34→22:13)
[2024-12-03 04:11] VITALS: BP 123/81; PULSE 82; RESP 14; TEMP 36.4; O2SAT 100
[2024-12-03] MEDS: LINACLOTIDE 145 MCG CAPSULE 290 MCG PO (05:31)
[2024-12-03 06:41] LABS: Hematocrit 34.7 % (37.0-47.0); Hemoglobin 10.7 g/dL (12.0-15.0); Mean Corpuscular HGB Conc 30.8 g/dl (32-36); Mean Corpuscular Hemoglobin 26.3 pg (26-34); Mean Corpuscular Volume 85.3 fl (80-100); Platelet Count Result 312 k/mm3 (150-375); Red Blood Count 4.07 M/mm3 (4.2-5.4); White Blood Count 16.2 K/mm3 (4.5-10.0)
[2024-12-03 07:04] LABS: Anion Gap 5 mmol/L (4-12); Blood Urea Nitrogen 6 mg/dL (7-17); Calcium 8.5 mg/dL (8.4-10.2); Carbon Dioxide 25 mmol/L (22-30); Chloride 103 mmol/L (98-107); Estimated CRCL calculation 110 ml/min; Estimated Glomerular Filt Rate > 60; Glucose 103 mg/dL (65-110); Potassium 4.0 mmol/L (3.4-5.0); Sodium 133 mmol/L (137-145)
[2024-12-03 08:11] VITALS: BP 123/85; PULSE 75; RESP 15; TEMP 36; O2SAT 100
[2024-12-03] MEDS: LUBIPROSTONE 24 MCG CAPSULE PO ×2 (08:44→16:18)
[2024-12-03] MEDS: DICYCLOMINE HCL 10 MG CAPSULE 20 MG PO ×3 (08:45→16:18)
[2024-12-03] MEDS: ENOXAPARIN 30 MG/0.3 ML SYRINGE SUB-Q ×2 (08:45→20:42)
--- NOTE | 2024-12-03 09:29 | P.PNGS_ITS ---
Progress Note: A&P Assessment and Plan (1) Hiatal hernia: Code(s): K44.9 - Diaphragmatic hernia without obstruction or gangrene Status: Chronic Assessment and Plan: Pod 1 status post robotic laparoscopic repair of a hiatal hernia with partial fundoplication in fundopexy. Patient did become hypoxic during the surgery and was found to have bilateral pneumothoraces. No other respiratory or hemodynamic issues developed. Patient did have some chest pain after surgery in the PACU, but this was likely due to postoperative changes. Stable overnight. This morning, she states that chest pain is still present, but improved from yesterday. * Patient notes diffuse abdominal pain around incisions. Continue pain management with morphine. * Will advance diet to full liquids. She will stay on this diet when discharged. * Encourage ambulation and up to chair for meals. (2) GERD (gastroesophageal reflux disease): Qualifiers: Esophagitis presence: esophagitis presence not specified Qualified Code(s): K21.9 - Gastro-esophageal reflux disease without esophagitis Code(s): K21.9 - Gastro-esophageal reflux disease without esophagitis Status: Chronic Assessment and Plan: Demonstrated on [facility] pH testing. Please see above. (3) Regurgitation of food: Code(s): R11.10 - Vomiting, unspecified Status: Chronic Assessment and Plan: Due to hiatal hernia and reflux. Resolved. (4) Irritable bowel syndrome (IBS): Qualifiers: Irritable bowel syndrome type: with constipation Qualified Code(s): K58.1 - Irritable bowel syndrome with constipation Code(s): K58.9 - Irritable bowel syndrome, unspecified Status: Chronic Assessment and Plan: takes Linzess with p.r.n. dicyclomine and MiraLax. Subjective Subjective Date/Time Seen: 12/03/24 09:29 Post Op day: 1 (Robotic laparoscopic repair hiatal hernia with partial fundoplication and fundopexy) Patient reports: tolerating liquids well, voiding w/o difficulty and afebrile Interval history: No acute events overnight. WBC 16.2 today. Patient complains of diffuse abdominal pain around incisions exacerbated by movement. She notes the chest pain is decreased from yesterday, but still present. This pain starts in the center of her chest and radiates to her left shoulder, similar to how it did yesterday. No nausea or vomiting. No lightheadedness or dizziness. She does endorse some mild shortness of breath and possibly some palpitations. Exam Const: General: comfortable and no acute distress Eyes: General: appearance normal, both eyes and all related structures Resp: Effort & Inspection: normal respiratory effort Auscultation: clear to auscultation bilaterally Cardio: Rate: regular rate Rhythm: regular rhythm GI: Inspection: non-distended GI Palp: Yes Soft to palpation, Yes [place] to palpation present (GI) (Diffusely tender) and No Hernia present Auscultation: abnormal bowel sounds (Hypoactive) Other: Incisions are clean and dry with glue intact. No surrounding redness or bruising. No signs of infection, skin necrosis, dehiscence. Objective Data Vital Signs Vital Signs: Vital Signs - 24 hr 12/02/24 12:45 12/02/24 13:00 12/02/24 13:15 Temperature 97.5 F L Pulse Rate 112 H 95 91 Respiratory Rate 24 H 16 20 Blood Pressure 110/74 126/68 120/81 Pulse Oximetry 100 100 100 Oxygen Delivery Simple Face Mask Simple Face Mask Room Air Oxygen Flow Rate 8 8 12/02/24 13:30 12/02/24 13:45 12/02/24 14:00 Temperature Pulse Rate 92 85 76 Respiratory Rate 15 13 13 Blood Pressure 119/88 123/86 116/84 Pulse Oximetry 99 98 97 Oxygen Delivery Room Air Room Air Room Air Oxygen Flow Rate 12/02/24 14:15 12/02/24 14:26 12/02/24 14:41 Temperature 97.5 F L 97.3 F L Pulse Rate 79 76 89 Respiratory Rate 16 18 18 Blood Pressure 121/86 130/86 120/74 Pulse Oximetry 97 97 100 Oxygen Delivery Room Air Oxygen Flow Rate 12/02/24 15:11 12/02/24 16:11 12/02/24 20:00 Temperature 97.3 F L 97.6 F Pulse Rate 85 84 95 Respiratory Rate 18 18 14 Blood Pressure 126/70 102/61 Pulse Oximetry 100 100 99 Oxygen Delivery Room Air Oxygen Flow Rate 12/02/24 20:11 12/02/24 23:21 12/03/24 00:08 Temperature 98.0 F 97.8 F Pulse Rate 95 85 Respiratory Rate 14 16 Blood Pressure 113/75 125/77 Pulse Oximetry 99 99 99 Oxygen Delivery Room Air Oxygen Flow Rate 12/03/24 04:11 Temperature 97.5 F L Pulse Rate 82 Respiratory Rate 14 Blood Pressure 123/81 Pulse Oximetry 100 Oxygen Delivery Oxygen Flow Rate Intake/Output Intake/Output: Intake & Output 11/30/24 12/01/24 12/02/24 12/03/24 23:59 23:59 23:59 23:59 Intake Total 490 1000 Balance 490 1000 Meds/Results Medications: Active Medications Generic Name Dose Route Start Last Admin Trade Name Freq PRN Reason Stop Dose Admin Acetaminophen 650 mg 12/02/24 14:26 Acetaminophen Elixir 325 Mg/10.15 Ml Udc PO Q4H PRN Mild Pain (1-3) or Fever Dicyclomine HCl 20 mg 12/02/24 17:00 12/03/24 08:45 Dicyclomine Hcl 10 Mg Capsule PO 20 mg TID GERALDO Administration Enoxaparin Sodium 30 mg 12/02/24 21:00 12/03/24 08:45 Enoxaparin 30 Mg/0.3 Ml Syringe SUB-Q 30 mg Q12HR GERALDO Administration Lactated Ringer's 1,000 mls @ 100 mls/hr 12/02/24 14:26 12/03/24 01:34 Lr - Lactated Ringers Iv IV CONT 100 mls/hr .Q10H GERALDO Administration Ibuprofen 800 mg in 200 mls @ 400 mls/hr 12/02/24 14:26 Caldolor 800 Mg/200 Ml IVPB Q6H PRN Breakthrough Pain Rated 1-3 or NPO Linaclotide 290 mcg 12/03/24 06:30 12/03/24 05:31 Linaclotide 145 Mcg Capsule PO 290 mcg DAILY@0630 GERALDO Administration Lubiprostone 24 mcg 12/02/24 17:00 12/03/24 08:44 Lubiprostone 24 Mcg Capsule PO 24 mcg BIDWM GERALDO Administration Miscellaneous Information 0 each 12/02/24 00:01 Plecanatide [Trulance] Is Non-Formulary. May We Use Pt Own Supply? XX 01/01/25 00:00 CLARIFY GERALDO Morphine Sulfate 2 mg 12/02/24 14:26 12/02/24 17:59 Morphine Sulfate (*Crx) 2 Mg/Ml Inj IV PUSH 2 mg Q2H PRN Administration Breakthrough Pain Rated 4-6 or NPO Morphine Sulfate 4 mg 12/02/24 14:26 12/03/24 08:31 Morphine Sulfate (*Crx) 4 Mg/Ml Inj IV PUSH 4 mg Q2H PRN Administration Breakthrough Pain Rated 7-10 or NPO Nifedipine 30 mg 12/03/24 09:00 12/03/24 08:45 Nifedipine 30 Mg Tab.Er.24 PO 30 mg DAILY GERALDO Administration Non-Formulary Medication 3 mg 12/03/24 09:00 Plecanatide [Trulance] PO 01/02/25 08:59 DAILY GERALDO Oxycodone HCl 5 mg 12/02/24 14:26 Oxycodone (*Crx) 5 Mg/5 Ml Oral Soln Ir PO Q4H PRN Pain Rated 4-6 Polyethylene Glycol 17 gm 12/03/24 09:00 12/03/24 08:45 Polyethylene Glycol 3350 17 Gm Powd.Pack PO 17 gm QAM GERALDO Administration Prochlorperazine Maleate 10 mg 12/02/24 14:26 Prochlorperazine Maleate 5 Mg Tablet PO Q8H PRN Nausea And Vomiting Senna/Docusate Sodium 2 tab 12/02/24 21:00 12/02/24 20:35 Senna/Docusate Sodium Tablet PO 2 tab HS GERALDO Administration Radiology Results: ITS Impressions Chest X-Ray 12/02/24 11:00 Impression: 1: Moderate bilateral pneumothorax. 2: Endotracheal tube tip right main stem bronchus. Recommend retraction. Dr. Abhijit Loving discussed with the potable water treatment operator in surgery for Dr. Mushtaq Moore MD at 12/02/2024 11:24 CDT. Labs Labs: Laboratory Results - last 24 hr 12/03/24 06:16 WBC 16.2 H RBC 4.07 L Hgb 10.7 L Hct 34.7 L MCV 85.3 MCH 26.3 MCHC 30.8 L RDW 15.1 H Plt Count 312 MPV 9.2 Sodium 133 L Potassium 4.0 Chloride 103 Carbon Dioxide 25 Anion Gap 5 BUN 6 L Creatinine 0.64 L Estim Creat Clear Calc 110 Estimated GFR > 60 Glucose 103 Calcium 8.5
--- NOTE | 2024-12-03 09:42 | ECG_ITS ---
Test Date: 2024-12-03 10:48:46 Measurements Intervals [place] Rate: 74 P: -16 MO: 136 QRS: 8 QRSD: 80 T: -17 QT: 357 QTc: 397 Interpretive Statements SINUS RHYTHM BORDERLINE ST-T WAVE ABNORMALITY- ANTERAOLAT/INF LEADS BORDERLINE ECG Compared to ECG 11/24/2024 11:45:27 No significant changes Electronically Signed On 12-03-2024 10:51:04 CDT by Bj Frye D.O.
--- NOTE | 2024-12-03 09:44 | WPDANESPN ---
Anes - Prog Note Post-Op Date/Time: 12/03/24 09:44 Cardiovascular status: normal Respiratory status: other (Mild SOB due to bilateral pneumos) Airway patency: baseline Mental status: baseline Post-Op hydration status: normal Vital Signs: Last Vital Signs Temp 36.4 C L 12/03/24 04:11 Pulse 82 12/03/24 04:11 Resp 14 12/03/24 04:11 BP 123/81 12/03/24 04:11 Pulse Ox 100 12/03/24 04:11 O2 Del Method Room Air 12/02/24 23:21 O2 Flow Rate 8 12/02/24 13:00 Pain Score (VAS): 4 I/O: Intake & Output 12/02/24 12/03/24 12/03/24 23:59 07:59 15:59 Intake Total 240 1000 Balance 240 1000 Laboratory Tests 12/03/24 06:16 12/03/24 06:16 12/03/24 06:16 WBC 16.2 H RBC 4.07 L Hgb 10.7 L Hct 34.7 L MCV 85.3 MCH 26.3 MCHC 30.8 L RDW 15.1 H Plt Count 312 MPV 9.2 Sodium 133 L Potassium 4.0 Chloride 103 Carbon Dioxide 25 Anion Gap 5 BUN 6 L Creatinine 0.64 L Estim Creat Clear Calc 110 Estimated GFR > 60 Glucose 103 Calcium 8.5 Patient Feedback: Patient satisfied with anesthetic care.
[2024-12-03 12:11] VITALS: BP 118/83; PULSE 80; RESP 16; TEMP 36.4; O2SAT 100
[2024-12-03 16:11] VITALS: BP 131/87; PULSE 91; RESP 18; TEMP 36.4; O2SAT 92
[2024-12-03] MEDS: IBUPROFEN IV 800 MG/200 ML 800 MG/200 ML BAG 400 MG IVPB (16:17)
[2024-12-03] MEDS: oxyCODONE (*CRX) 5 MG/5 ML ORAL SOLN IR PO ×2 (17:12→21:29)
[2024-12-03] MEDS: SENNA/DOCUSATE SODIUM TABLET 2 TAB PO (20:42)
[2024-12-03 21:47] VITALS: BP 112/84; PULSE 93; RESP 13; TEMP 36.7; O2SAT 93
[2024-12-04] MEDS: oxyCODONE (*CRX) 5 MG/5 ML ORAL SOLN IR PO (03:22)
[2024-12-04 06:24] LABS: Hematocrit 34.4 % (37.0-47.0); Hemoglobin 10.8 g/dL (12.0-15.0); Mean Corpuscular HGB Conc 31.4 g/dl (32-36); Mean Corpuscular Hemoglobin 26.6 pg (26-34); Mean Corpuscular Volume 84.7 fl (80-100); Platelet Count Result 312 k/mm3 (150-375); Red Blood Count 4.06 M/mm3 (4.2-5.4); White Blood Count 13.2 K/mm3 (4.5-10.0)
[2024-12-04] MEDS: LINACLOTIDE 145 MCG CAPSULE 290 MCG PO (06:36)
[2024-12-04] MEDS: LACTATED RINGERS 1,000 ML 100 ML IV CONT (06:47)
[2024-12-04] MEDS: MORPHINE SULFATE (*CRX) 2 MG/ML INJ IV PUSH (06:47)
[2024-12-04 07:02] LABS: Anion Gap 4 mmol/L (4-12); Blood Urea Nitrogen 4 mg/dL (7-17); Calcium 8.4 mg/dL (8.4-10.2); Carbon Dioxide 25 mmol/L (22-30); Chloride 103 mmol/L (98-107); Estimated CRCL calculation 115 ml/min; Estimated Glomerular Filt Rate > 60; Glucose 101 mg/dL (65-110); Potassium 3.7 mmol/L (3.4-5.0); Sodium 132 mmol/L (137-145)
[2024-12-04] MEDS: oxyCODONE (*CRX) 5 MG/5 ML ORAL SOLN IR 10 MG PO ×4 (10:34→23:29)
[2024-12-04] MEDS: LUBIPROSTONE 24 MCG CAPSULE PO ×2 (10:36→18:05)
[2024-12-04] MEDS: DICYCLOMINE HCL 10 MG CAPSULE 20 MG PO ×3 (10:36→18:04)
[2024-12-04] MEDS: ENOXAPARIN 40 MG/0.4 ML SYRINGE SUB-Q (10:37)
[2024-12-04] MEDS: KCL 20 MEQ/D5/0.9% SOD CHL 1,000 ML 80 ML IV CONT ×2 (10:40→23:35)
--- NOTE | 2024-12-04 11:24 | PM.PNGS ---
Progress Note: A&P Assessment and Plan (1) Hiatal hernia: Code(s): K44.9 - Diaphragmatic hernia without obstruction or gangrene Status: Chronic Assessment and Plan: no vomiting or nausea. No regurgitation. Feels much better today. Still requiring help to get out of bed. Continue full liquids, continue ambulation. Recheck labs and exam again tomorrow. Possibly home tomorrow if continues to improve. (2) GERD (gastroesophageal reflux disease): Qualifiers: Esophagitis presence: esophagitis presence not specified Qualified Code(s): K21.9 - Gastro-esophageal reflux disease without esophagitis Code(s): K21.9 - Gastro-esophageal reflux disease without esophagitis Status: Chronic (3) Regurgitation of food: Code(s): R11.10 - Vomiting, unspecified Status: Chronic Assessment and Plan: Due to hiatal hernia and reflux. Resolved. (4) Irritable bowel syndrome (IBS): Qualifiers: Irritable bowel syndrome type: with constipation Qualified Code(s): K58.1 - Irritable bowel syndrome with constipation Code(s): K58.9 - Irritable bowel syndrome, unspecified Status: Chronic Assessment and Plan: takes Linzess with p.r.n. dicyclomine and MiraLax. Subjective Subjective Date/Time Seen: 12/04/24 11:24 Post Op day: 2 Patient reports: feels better, pain is less, tolerating liquids well, voiding w/o difficulty, flatus, no bowel movement and afebrile Exam Const: General: comfortable and no acute distress Orientation/consciousness: patient oriented x3 Resp: Effort & Inspection: normal respiratory effort Auscultation: clear to auscultation bilaterally Cardio: Rate: regular rate Rhythm: regular rhythm GI: Inspection: incision ( Dry and healing well) GI Palp: Yes Soft to palpation and Yes Tenderness to palpation present (GI) ( upper abdomen around incisions) Auscultation: normal bowel sounds Neuro: General: patient oriented x3 and no focal motor deficits Extrem: General: no calf tenderness and no edema Psych: Affect: normal affect Insight: Good insight present (Psych) Judgement: Good judgement present (Psych) Objective Data Vital Signs Vital Signs: Vital Signs - 24 hr 12/03/24 12:11 12/03/24 16:11 12/03/24 20:15 Temperature 36.4 C 36.4 C L Pulse Rate 80 91 Respiratory Rate 16 18 Blood Pressure 118/83 131/87 Pulse Oximetry 100 92 Oxygen Delivery Room Air 12/03/24 21:47 Temperature 36.7 C Pulse Rate 93 Respiratory Rate 13 Blood Pressure 112/84 Pulse Oximetry 93 Oxygen Delivery Intake/Output Intake/Output: Intake & Output 12/01/24 12/02/24 12/03/24 12/04/24 23:59 23:59 23:59 23:59 Intake Total 490 3673 1096.7 Balance 490 3673 1096.7 Meds/Results Medications: Active Medications Generic Name Dose Route Start Last Admin Trade Name Freq PRN Reason Stop Dose Admin Acetaminophen 650 mg 12/02/24 14:26 Acetaminophen Elixir 325 Mg/10.15 Ml Udc PO Q4H PRN Mild Pain (1-3) or Fever Dicyclomine HCl 20 mg 12/02/24 17:00 12/04/24 10:36 Dicyclomine Hcl 10 Mg Capsule PO 20 mg TID GERALDO Administration Enoxaparin Sodium 40 mg 12/04/24 09:00 12/04/24 10:37 Enoxaparin 40 Mg/0.4 Ml Syringe SUB-Q 40 mg DAILY GERALDO Administration Ibuprofen 800 mg in 200 mls @ 400 mls/hr 12/02/24 14:26 12/03/24 16:47 Caldolor 800 Mg/200 Ml IVPB Infused Q6H PRN Infusion Breakthrough Pain Rated 1-3 or NPO Potassium Chloride/Dextrose/Sod Cl 1,000 mls @ 80 mls/hr 12/04/24 07:30 12/04/24 10:40 Kcl 20 Meq/D5/0.9% Sod Chl IV CONT 80 mls/hr .[id number] GERALDO Administration Linaclotide 290 mcg 12/03/24 06:30 12/04/24 06:36 Linaclotide 145 Mcg Capsule PO 290 mcg DAILY@0630 GERALDO Administration Lubiprostone 24 mcg 12/02/24 17:00 12/04/24 10:36 Lubiprostone 24 Mcg Capsule PO 24 mcg BIDWM GERALDO Administration Miscellaneous Information 0 each 12/02/24 00:01 12/04/24 00:31 Plecanatide [Trulance] Is Non-Formulary. May We Use Pt Own Supply? XX 01/01/25 00:00 Not Given [facility] Morphine Sulfate 2 mg 12/02/24 14:26 12/04/24 06:47 Morphine Sulfate (*Crx) 2 Mg/Ml Inj IV PUSH 2 mg Q2H PRN Administration Breakthrough Pain Rated 4-6 or NPO Morphine Sulfate 4 mg 12/02/24 14:26 12/03/24 15:01 Morphine Sulfate (*Crx) 4 Mg/Ml Inj IV PUSH 4 mg Q2H PRN Administration Breakthrough Pain Rated 7-10 or NPO Nifedipine 30 mg 12/03/24 09:00 12/04/24 10:36 Nifedipine 30 Mg Tab.Er.24 PO 30 mg DAILY GERALDO Administration Non-Formulary Medication 3 mg 12/03/24 09:00 Plecanatide [Trulance] PO 01/02/25 08:59 DAILY [facility] Oxycodone HCl 5 mg 12/02/24 14:26 12/04/24 03:22 Oxycodone (*Crx) 5 Mg/5 Ml Oral Soln Ir PO 5 mg Q4H PRN Administration Pain Rated 4-6 Oxycodone HCl 10 mg 12/04/24 07:29 12/04/24 10:34 Oxycodone (*Crx) 5 Mg/5 Ml Oral Soln Ir PO 10 mg Q4H PRN Administration Pain Rated 7-10 Polyethylene Glycol 17 gm 12/03/24 09:00 12/04/24 10:37 Polyethylene Glycol 3350 17 Gm Powd.Pack PO 17 gm QAM GERALDO Administration Prochlorperazine Maleate 10 mg 12/02/24 14:26 Prochlorperazine Maleate 5 Mg Tablet PO Q8H PRN Nausea And Vomiting Senna/Docusate Sodium 2 tab 12/02/24 21:00 12/03/24 20:42 Senna/Docusate Sodium Tablet PO 2 tab HS GERALDO Administration Radiology Results: ITS Impressions Chest X-Ray 12/02/24 11:00 Impression: 1: Moderate bilateral pneumothorax. 2: Endotracheal tube tip right main stem bronchus. Recommend retraction. Dr. Abhijit Loving discussed with the winery cellar hand in surgery for Dr. Mushtaq Moore MD at 12/02/2024 11:24 CDT. Labs Labs: Laboratory Results - last 24 hr 12/04/24 06:15 WBC 13.2 H RBC 4.06 L Hgb 10.8 L Hct 34.4 L MCV 84.7 MCH 26.6 MCHC 31.4 L RDW 14.9 H Plt Count 312 MPV 8.9 Sodium 132 L Potassium 3.7 Chloride 103 Carbon Dioxide 25 Anion Gap 4 BUN 4 L Creatinine 0.61 L Estim Creat Clear Calc 115 Estimated GFR > 60 Glucose 101 Calcium 8.4
[2024-12-04 14:00] VITALS: BP 121/77; PULSE 99; RESP 18; TEMP 37.6; O2SAT 95
[2024-12-04 15:11] VITALS: TEMP 37.6
[2024-12-04] MEDS: ACETAMINOPHEN ELIXIR 325 MG/10.15 ML UDC 650 MG PO ×2 (15:11→20:17)
[2024-12-04 16:11] VITALS: TEMP 36.4
[2024-12-04 20:01] VITALS: BP 119/85; PULSE 94; RESP 18; TEMP 38; O2SAT 99
[2024-12-04] MEDS: SENNA/DOCUSATE SODIUM TABLET 2 TAB PO (20:17)
[2024-12-04 22:00] VITALS: TEMP 36.8
[2024-12-04 23:01] VITALS: TEMP 36.8
[2024-12-04] MEDS: IBUPROFEN IV 800 MG/200 ML 800 MG/200 ML BAG 400 MG IVPB (23:01)
--- NOTE | 2024-12-05 02:43 | PC.NURSE ---
2230: Pt febrile at the start of the shift; prn Tylenol administered. Temperature now 98.3, denies chest pain but reports SoB with exertion; Spo2 96-98% in RA. Leukocytosis improving. Pt not on abx
[2024-12-05] MEDS: MORPHINE SULFATE (*CRX) 2 MG/ML INJ IV PUSH (04:05)
[2024-12-05 04:42] VITALS: BP 103/75; PULSE 79; RESP 14; TEMP 36.6; O2SAT 95
[2024-12-05] MEDS: LINACLOTIDE 145 MCG CAPSULE 290 MCG PO (05:43)
[2024-12-05] MEDS: oxyCODONE (*CRX) 5 MG/5 ML ORAL SOLN IR 10 MG PO ×3 (05:45→16:32)
[2024-12-05 05:53] LABS: Hematocrit 34.8 % (37.0-47.0); Hemoglobin 10.7 g/dL (12.0-15.0); Mean Corpuscular HGB Conc 30.7 g/dl (32-36); Mean Corpuscular Hemoglobin 26.2 pg (26-34); Mean Corpuscular Volume 85.3 fl (80-100); Platelet Count Result 298 k/mm3 (150-375); Red Blood Count 4.08 M/mm3 (4.2-5.4); White Blood Count 11.2 K/mm3 (4.5-10.0)
[2024-12-05 06:16] LABS: Anion Gap 4 mmol/L (4-12); Blood Urea Nitrogen 3 mg/dL (7-17); Calcium 8.3 mg/dL (8.4-10.2); Carbon Dioxide 27 mmol/L (22-30); Chloride 103 mmol/L (98-107); Estimated CRCL calculation 115 ml/min; Estimated Glomerular Filt Rate > 60; Glucose 110 mg/dL (65-110); Potassium 3.7 mmol/L (3.4-5.0); Sodium 134 mmol/L (137-145)
[2024-12-05] MEDS: LUBIPROSTONE 24 MCG CAPSULE PO (08:56)
[2024-12-05] MEDS: DICYCLOMINE HCL 10 MG CAPSULE 20 MG PO ×2 (08:56→12:35)
[2024-12-05] MEDS: ENOXAPARIN 40 MG/0.4 ML SYRINGE SUB-Q (08:57)
[2024-12-05] MEDS: oxyCODONE (*CRX) 5 MG/5 ML ORAL SOLN IR PO (12:34)
--- NOTE | 2024-12-05 13:55 | P.DS_ITS ---
DS: Admitting Diagnosis Discharge Date 12/05/2024 Admitting Diagnosis * Hiatal hernia * Gastroesophageal reflux disease * Regurgitation * Irritable bowel syndrome, constipation predominant DS: Discharge Diagnosis Discharge Diagnosis (1) Hiatal hernia: Code(s): K44.9 - Diaphragmatic hernia without obstruction or gangrene Status: Chronic Assessment and Plan: Robotic laparoscopic repair hiatal hernia with partial fundoplication and fundopexy performed 12/02/[address] Moore (2) GERD (gastroesophageal reflux disease): Qualifiers: Esophagitis presence: esophagitis presence not specified Qualified Code(s): K21.9 - Gastro-esophageal reflux disease without esophagitis Code(s): K21.9 - Gastro-esophageal reflux disease without esophagitis Status: Chronic (3) Regurgitation of food: Code(s): R11.10 - Vomiting, unspecified Status: Chronic (4) Irritable bowel syndrome (IBS): Qualifiers: Irritable bowel syndrome type: with constipation Qualified Code(s): K58.1 - Irritable bowel syndrome with constipation Code(s): K58.9 - Irritable bowel syndrome, unspecified Status: Chronic DS: Summary Hospital Course Hospital Course: patient is a 44-year-old woman whom I saw initially 03/16/2024. At that time she had 3 main complaints. She had been vomiting after most meals ever since September of 2019 for or 6 months previously. She also had severe constipation and was having bowel movements only about once a week. Additionally, for the last 2 months, she was having lower abdominal pain. She had a history of gas troesophageal reflux disease and was on proton pump inhibitors. She also had a history of migraines. Her exam showed her to be tender in the lower abdominal midline and that it was painful for her to go from a sitting to a supine position. She had been to the emergency room at [facility] on 02/04/2020 for with lower abdominal pain and emesis. CT scan of the abdomen and pelvis there was negative. By my review it did show a small hiatal hernia. The patient had significant testing following her office visit in March of 2024. She had a right upper quadrant ultrasound which was normal. She had an upper GI small- bowel follow-through with water-soluble contrast -this showed a small hiatal hernia and a transit time of 45 minutes from small bowel to colon. She had a pelvic ultrasound which was normal. She had a HIDA scan which showed a ejection fraction of 97%. It was noteworthy that shortly after the study, she regurgitated the Ensure. A gastric emptying study was attempted on 06/15/2024. The patient vomited 20 minutes after eating the radial labeled medial and us know gastric emptying could be measured. She had had an EGD at [facility] in December of 2023 which showed gastritis and inflammation. I never did get the report from that. Patient saw gastroenterology for her constipation. She had a colonoscopy performed on 06/05/2024. This showed a small tubular adenoma of the cecum but was otherwise negative. She has seen GI since that time and has been diagnosed with irritable bowel syndrome-constipation predominant(IBS-C) she takes Linzess 290 mcg daily which has helped. She still takes dicyclomine p.r.n. for cramping and MiraLax for hard bowel movements. Further evaluation of her GERD was performed. On 07/21/2024 she had esophageal manometry done at [facility] which was normal. PH twice testing was also attempted but she vomited up the pH probe before any testing could be done. Since PH testing by traditional means was not forthcoming, she had pH testing by [facility] while off proton pump inhibitors. This was markedly positive for heartburn and regurgitation. Her DeMeester score was quite elevated at 25.7. The procedure was done September 01, 2024. Normal DeMeester score is less than 14.7. She has followed up with me in the office. She continues to have heartburn and regurgitation frequently despite taking Pepcid twice a day and sucralfate daily. After this extensive workup, she was taken to the operating room on 12/02/2024. She underwent robotic laparoscopic repair of hiatal hernia with partial fundoplication and fundopexy. Following surgery she had the usual amount of chest discomfort, shoulder pain, and some shortness of breath with no hypoxemia. This gradually improved. She tolerated clear liquids and then full liquids. By postoperative day number 3, she was comfortable on oral analgesics and tolerating a full liquid diet. Dietitian had been by to explain limitations of a full liquid diet status post fundoplication. She had no evidence of hypoxemia on room air even before leaving the PACU and the entire time she was in the hospital. She did have a temp of 38.0? at 8:00 p.m. the night before discharge. Her white blood cell count had been decreasing, she was having no significant cough or sputum production. She had no dysuria. The low-grade fever was felt to be due to atelectasis. This was explained to her and incentive spirometer and ambulation with deep breaths was explained. She had no symptoms of heartburn or regurgitation while in the hospital off of acid reducing medication. She was discharged in good condition on 12/05/2024. Status at Discharge Functional status at discharge: independent ambulation Overall status at discharge: patient is progressing back to baseline Time Spent with Patient Time attestation: Total time spent providing and/or coordinating discharge services: Time spent: Less than 30 minutes DS: Data Data Completed and Pending Labs on day of discharge: Labs from last 24 hours 12/05/24 05:36 WBC 11.2 H RBC 4.08 L Hgb 10.7 L Hct 34.8 L MCV 85.3 MCH 26.2 MCHC 30.7 L RDW 14.8 H Plt Count 298 MPV 8.7 Sodium 134 L Potassium 3.7 Chloride 103 Carbon Dioxide 27 Anion Gap 4 BUN 3 L Creatinine 0.61 L Estim Creat Clear Calc 115 Estimated GFR > 60 Glucose 110 Calcium 8.3 L Discharge Plan Discharge Patient Disposition: Home Discharge Instructions: * Ambulate 3-4 x per day and as tolerated. * No lifting over 15-20lbs. * May bathe or shower. * Stairs are OK. * May drive a car in 3 days. * Eat/drink slowly, taking time between bites or swallows. * Try to take in at least 40 mg of protein, typically a protein shake, each day. * Call Dr. Moore for temp over 100.5, severe pain, vomiting, or other significant change in condition. * Take deep breaths and continue to use incentive spirometer regularly while awake, especially the 1st week at home Patient Instructions: Full Liquid Diet (DC) Patient Language: Cymro Stand Alone Forms: General Discharge Instructions, Work/School Release IP Follow-up/Referrals: Mushtaq Moore MD [Physician, General Surgery] - 2 Weeks Discharge Medications: New acetaminophen [Nortemp] 160 mg/5 mL Suspension 650 mg PO Q4H PRN (Reason: Mild Pain (1-3) Or Fever) Qty: 100 0RF polyethylene glycol 3350 [Miralax] 17 gram Powder In Packet 17 g PO QAM Qty: 7 0RF sennosides-docusate sodium [Senokot-S] 8.6-50 mg Tablet 2 tab PO HS Qty: 8 0RF oxycodone 5 mg/5 mL Solution 5 mg PO Q4H Qty: 100 0RF Continued tramadol 100 mg capsule,ER biphase 24 hr 25-75 100 mg PO .prn nifedipine 30 mg tablet extended release 30 mg PO DAILY linaclotide 290 mcg capsule 290 mcg capsule 0RF prochlorperazine maleate [Compazine] 10 mg tablet 10 mg PO Q8H PRN (Reason: nausea and vomiting) Qty: 30 0RF dicyclomine 20 mg tablet 20 mg PO TID 30 Days Qty: 90 11RF Trulance 3 mg tablet 3 mg PO DAILY Qty: 30 6RF lubiprostone [Amitiza] 24 mcg capsule 24 mcg PO BID Qty: 60 3RF Discontinued acetaminophen-codeine 300-30 mg tablet 1 tablet PO Q8H PRN (Reason: pain) famotidine 40 mg tablet 40 mg PO BID 90 Days Qty: 180 3RF
[2024-12-05 14:00] VITALS: BP 119/77; PULSE 85; RESP 18; TEMP 37.4; O2SAT 95
== END 2024-12-05 16:35 | disposition home or self-care (01) ==
LOC: ANHSURGERY 07:28 → ANH3MEDSUR 14:28
PROVIDERS: PCP Emergency Medicine; Visit Provider Surgery
PROC: 0DV44ZZ Restriction of Esophagogastric Junction, Percutaneous Endoscopic Approach (ICD-10-PCS; CPT 43280; principal; 2024-12-02 08:30)
DX: K44.9 Diaphragmatic hernia without obstruction or gangrene (principal); K21.9 Gastro-esophageal reflux disease without esophagitis; K58.1 Irritable bowel syndrome with constipation; G89.18 Other acute postprocedural pain; F17.290 Nicotine dependence, other tobacco product, uncomplicated; E66.9 Obesity, unspecified; Z68.37 Body mass index [BMI] 37.0-37.9, adult; Z79.891 Long term (current) use of opiate analgesic
CPT/HCPCS: 43281; S2900; 36415; 71045; 80048; 85027; 93005; J0690; A9270; J1100; J1171; J1596; J1650; J1741; J1885; J2003; J2250; J2270; J2405; J2704; J3010; J3480; J7120

== ENCOUNTER 2024-12-09 10:33 | Observation (INO) | payer OTHER, SELFPAY ==
--- NOTE | ~2024-12-09 | CT_ITS ---
EXAMINATION: CT abdomen pelvis w con DATE: 12/09/2024 11:28 INDICATION: Abdominal pain post injury TECHNIQUE: Computed tomography (CT) of the abdomen and pelvis was performed with 100 mL Omnipaque-350 intravenous contrast. Automated exposure control and iterative reconstruction technique were employed. The dose-length product was 1220.23 mGy-cm. COMPARISON: 02/04/2024 FINDINGS: Bandlike consolidation in the left lower lobe with some air bronchograms indicating volume loss and favor atelectasis over pneumonia. There is some additional linear discoid atelectasis in the lingula and bilateral lower lobes. Very small left pleural effusion. Heart size is normal. No pericardial effusion There is prominent edematous-appearing localized gastric wall thickening in the proximal stomach at the level of the thoracic hiatus which could reflect postoperative change related to reported recent hiatal hernia repair with partial fundoplication. Unchanged small region of focal hepatic steatosis at the ligamentum teres. There are new geographic peripheral regions of decreased attenuation/enhancement along the posterolateral margin of the lateral segment left hepatic lobe. Gallbladder, spleen, pancreas, bilateral adrenal glands and kidneys are normal. Appendix not visualized and there are postoperative changes along the tip the cecum consistent with prior appendectomy. No bowel obstruction. Bladder, uterus and bilateral adnexa are unremarkable. Small amount of likely physiologic free fluid in the cul-de-sac. No free intraperitoneal gas. No pathologically enlarged abdominal or pelvic lymphadenopathy. Mild degenerative skeletal changes in the spine and pelvis. IMPRESSION: 1. Edematous-appearing localized wall thickening in the proximal stomach near the gastric hiatus likely related to reported recent hiatal hernia repair and partial fundoplication. 2. New geographic regions of decreased attenuation/enhancement along the posterolateral margin of the lateral segment left hepatic lobe which given proximity to the stomach could represent contusions related to the recent surgery. Would consider follow-up MRI in a few months to confirm resolution and exclude the less likely development of a hepatic neoplasm new since 02/04/2024. 3. Small amount of likely physiologic free fluid in the cul-de-sac. Reviewed, dictated and finalized at location A. IMPRESSION: 1. Edematous-appearing localized wall thickening in the proximal stomach near t he gastric hiatus likely related to reported recent hiatal hernia repair and pa rtial fundoplication. 2. New geographic regions of decreased attenuation/enhancement along the branch administrator olateral margin of the lateral segment left hepatic lobe which given proximity to the stomach could represent contusions related to the recent surgery. Would consider follow-up MRI in a few months to confirm resolution and exclude the le ss likely development of a hepatic neoplasm new since 02/04/2024. 3. Small amount of likely physiologic free fluid in the cul-de-sac.
[2024-12-09 10:38] VITALS: BP 143/90; PULSE 83; RESP 20; TEMP 36.8; O2SAT 100
[2024-12-09] MEDS: SODIUM CHLORIDE 0.9% IV 1,000 ML 999 ML IV CONT (11:04)
[2024-12-09] MEDS: HYDROmorphone HCL INJ (*CRX) 1 MG/ML SYR IV PUSH ×2 (11:06→16:26)
[2024-12-09] MEDS: PROCHLORPERAZINE EDISYLATE 10 MG/2 ML VIAL IV PUSH (11:06)
[2024-12-09 11:21] LABS: Hematocrit 40.6 % (37.0-47.0); Hemoglobin 12.8 g/dL (12.0-15.0); Immature Granulocyte Percent A 0.6 % (0-0.5); Lymphocytes Absolute Auto 2.10 K/mm3 (0.9-3.2); Mean Corpuscular HGB Conc 31.5 g/dl (32-36); Mean Corpuscular Hemoglobin 26.3 pg (26-34); Mean Corpuscular Volume 83.4 fl (80-100); Nucleated Red Blood Cells Absolute Auto 0.000 K/mm3 (0.0-0.012); Nucleated Red Blood Cells Perc 0.0 % (0.0-0.2); Platelet Count Result 489 k/mm3 (150-375); Red Blood Count 4.87 M/mm3 (4.2-5.4); White Blood Count 9.9 K/mm3 (4.5-10.0)
[2024-12-09 11:25] LABS: Estimated Glomerular Filt Rate > 60
[2024-12-09 11:30] LABS: Alanine Aminotransferase 101 U/L (6-35); Albumin Level 4.1 g/dL (3.5-5.1); Alkaline Phosphatase 76 U/L (38-126); Anion Gap 9 mmol/L (4-12); Aspartate Amino Transferase 34 U/L (14-36); Bilirubin,Total 0.3 mg/dL (0.2-1.3); Blood Urea Nitrogen 8 mg/dL (7-17); Calcium 9.6 mg/dL (8.4-10.2); Carbon Dioxide 25 mmol/L (22-30); Chloride 104 mmol/L (98-107); Estimated Glomerular Filt Rate > 60; Glucose 95 mg/dL (65-110); Lipase 52 U/L (23-300); Potassium 4.1 mmol/L (3.4-5.0); Sodium 138 mmol/L (137-145); Total Protein 7.7 g/dL (6.3-8.2)
--- NOTE | 2024-12-09 12:03 | ED.GENADULT ---
HPI - General Adult General Chief complaint: Abdominal Pain Stated complaint: hernia repair/complications Time Seen by Provider: 12/09/24 10:40 History of Present Illness HPI narrative: Patient is a 44-year-old female who presents emergency department with chief complaint of abdominal pain the patient reports she had a hiatal hernia repair done by Dr. Moore on Saturday the patient reports she was discharged on Saturday and has not been able to get her prescriptions filled and has not been able to tolerate the pain patient reports that she has had no fevers reports the pain shoots to her back Related Data Home Medications ?Medication ?Instructions ?Recorded ?Confirmed ?Last Taken ?Type nifedipine 30 mg tablet,extended 30 mg PO DAILY 05/12/24 12/02/24 12/01/24 History release tramadol 100 mg capsule 100 mg PO .prn 05/12/24 12/02/24 11/30/24 History 24h,extended release(25-75) Allergies Allergy/AdvReac Type Severity Reaction Status Date / Time amoxicillin Allergy Swelling Verified 12/09/24 11:04 Review of Systems Review of Systems: A 10 system review of systems was completed on the patient and is negative except for what is stated in the HPI. Nursing and ancillary documentation was reviewed. [facility] Past Medical History Medical History GERD (gastroesophageal reflux disease) Gastritis Nausea and vomiting Change in bowel habits History of migraine History of gastroesophageal reflux (GERD) Social History Social History Smoking packs per day: 3 Smoking cigarettes per day: 60.0 Years smoked: 7 Smoking pack-years: 21.00 Smoking status: Former smoker Tobacco type: cigarettes and e-cigarettes/vaping Smoking end date: 04/08/12 Additional smoking assessment comments: Vaping only Alcohol intake: never Substance use: never Do You Feel Safe in your Home?: Yes Lack of Transportation: No Lack of Food: Never True Current Housing: I Have Housing Concerned About Future Housing: No Difficulty Paying Gas/Electric Bills: No Difficulty Paying for Meds: No Currently Unemployed: No Education: High School Diploma/GED Difficulty w/ Childcare or Family Care: No Living arrangements: with family Spiritual care concerns: No Exam Narrative: GENERAL: Well-appearing, well-nourished, and in no acute distress. HEAD: Normocephalic, atraumatic. EYES: PERRLA and EOMI. ENT: Nares clear, no rhinorrhea or epistaxis. Mucous membranes moist. NECK: Supple. CHEST: Clear to auscultation. No respiratory distress. HEART: Regular rate and rhythm. No murmur heard. Normal peripheral pulses. ABDOMEN: Soft, mild tenderness to palpation incisions are well approximated and no redness or drainage, nondistended, normal active bowel sounds. EXTREMITIES: Normal range of motion. No edema. SKIN: Warm, dry, no rash. NEURO: No focal deficits. Alert and oriented x3. PSYCH: Normal mood and affect. Course Vital Signs Vital signs: Vital Signs Temperature 36.8 C 12/09/24 10:38 Pulse Rate 83 12/09/24 10:38 Respiratory Rate 12/09/24 10:38 Blood Pressure 143/90 H 12/09/24 10:38 Pulse Oximetry 100 12/09/24 10:38 Oxygen Delivery Room Air 12/09/24 10:38 Temperature 36.8 C 12/09/24 10:38 Pulse Rate 69 12/09/24 12:31 Respiratory Rate 12/09/24 12:31 Blood Pressure 128/84 12/09/24 12:31 Pulse Oximetry 99 12/09/24 12:31 Oxygen Delivery Room Air 12/09/24 10:38 Medical Decision Making MDM Narrative Medical decision making narrative: Differential diagnosis includes postoperative infection, postoperative pain. The patient received IV fluids and pain medications in the emergency department laboratory studies showed normal white blood cell count hemoglobin was 12.8 electrolytes showed no significant abnormality urinalysis showed specific gravity of greater than 1.045 And no evidence of infection. CT scan of the abdomen pelvis showed postoperative changes Vital Signs Vital Signs: Vital Signs Temperature 36.8 C 12/09/24 10:38 Pulse Rate 83 12/09/24 10:38 Respiratory Rate 20 12/09/24 10:38 Blood Pressure 143/90 H 12/09/24 10:38 Pulse Oximetry 100 12/09/24 10:38 Oxygen Delivery Room Air 12/09/24 10:38 Temperature 36.8 C 12/09/24 10:38 Pulse Rate 69 12/09/24 12:31 Respiratory Rate 20 12/09/24 12:31 Blood Pressure 128/84 12/09/24 12:31 Pulse Oximetry 99 12/09/24 12:31 Oxygen Delivery Room Air 12/09/24 10:38 Lab Data 12/09/24 11:10 12/09/24 11:22 Labs: Lab Results 12/09/24 12/09/24 12/09/24 Range/Units 11:10 11:22 12:07 WBC 9.9 (4.5-10.0) K/mm3 RBC 4.87 (4.2-5.4) M/mm3 Hgb 12.8 (12.0-15.0) g/dL Hct 40.6 (37.0-47.0) % MCV 83.4 (80-100) fl MCH 26.3 (26-34) pg MCHC 31.5 L (32-36) g/dl RDW 14.6 H (11.5-14.5) % Plt Count 489 H D (150-375) k/mm3 MPV 8.4 (7.4-10.4) fl Immature Gran % (Auto) 0.6 H (0-0.5) % Neut % (Auto) 65.3 (45.5-73.1) % Lymph % (Auto) 21.2 (18.3-44.2) % [place] % (Auto) 8.6 H (2.6-8.5) % Eos % (Auto) 4.0 (0-4.4) % Baso % (Auto) 0.3 (0.2-1.2) % Lymph # (Auto) 2.10 (0.9-3.2) K/mm3 [place] # (Auto) 0.9 H (0.1-0.6) K/mm3 Eos # (Auto) 0.4 H (0-0.3) K/mm3 Baso # (Auto) 0.0 (0.0-0.1) K/mm3 Abs Immat Gran (auto) 0.06 H (0.00-0.031) K/mm3 Absolute Neuts (auto) 6.5 (1.3-6.7) K/mm3 Absolute Nucleated RBC 0.000 (0.0-0.012) K/mm3 Nucleated RBC % 0.0 (0.0-0.2) % Sodium 138 (137-145) mmol/L Potassium 4.1 (3.4-5.0) mmol/L Chloride 104 (98-107) mmol/L Carbon Dioxide 25 (22-30) mmol/L Anion Gap 9 (4-12) mmol/L BUN 8 D (7-17) mg/dL Creatinine 0.73 0.80 (0.7-1.0) mg/dL Estim Creat Clear Calc Not Reportable Not Reportable Estimated GFR > 60 > 60 (59 - ) Glucose 95 (65-110) mg/dL Lactic Acid 0.9 (0.7-2.0) mmol/L Calcium 9.6 (8.4-10.2) mg/dL Total Bilirubin 0.3 (0.2-1.3) mg/dL AST 34 (14-36) U/L ALT 101 H (6-35) U/L Alkaline Phosphatase 76 (38-126) U/L Total Protein 7.7 (6.3-8.2) g/dL Albumin 4.1 (3.5-5.1) g/dL Lipase 52 (23-300) U/L Urine Color Yellow (Yellow) Urine Appearance Clear (Clear) Urine pH 6.0 (5.0-9.0) Ur Specific Jarrell > 1.045 H (1.001-1.035) Urine Protein Negative (Negative) mg/dL Urine Glucose (UA) Negative (Negative) mg/dL Urine Ketones Negative (Negative) mg/dL Ur Blood (Man) 3+ H (Negative) Urine Nitrate Negative (Negative) Urine Bilirubin Negative (Negative) Urine Urobilinogen 0.2 (<2.0) mg/dL Leukocyte Esterase Rfl Negative (Negative) RODRÍGUEZ/UL Urine RBC 21-50 H (0-2) /hpf Urine WBC 0-5 (0-3) /hpf Ur Squamous Epith Cells Occasional (Few) /hpf Urine Bacteria Rare /hpf Urine Casts 0-2 Discharge Plan Discharge Clinical Impression: Post-operative pain Patient Disposition: Still a Patient Condition: Stable Instructions: Antibiotic Form Patient Language: Irish Prescriptions: No Action tramadol 100 mg capsule,ER biphase 24 hr 25-75 100 mg PO .prn nifedipine 30 mg tablet extended release 30 mg PO DAILY linaclotide 290 mcg capsule 290 mcg capsule 0RF prochlorperazine maleate [Compazine] 10 mg tablet 10 mg PO Q8H PRN (Reason: nausea and vomiting) Qty: 30 0RF dicyclomine 20 mg tablet 20 mg PO TID 30 Days Qty: 90 11RF acetaminophen [Nortemp] 160 mg/5 mL Suspension 650 mg PO Q4H PRN (Reason: Mild Pain (1-3) Or Fever) Qty: 100 0RF polyethylene glycol 3350 [Miralax] 17 gram Powder In Packet 17 g PO QAM Qty: 7 0RF sennosides-docusate sodium [Senokot-S] 8.6-50 mg Tablet 2 tab PO HS Qty: 8 0RF oxycodone-acetaminophen 5-325 mg/5 mL solution 5 ml PO Q4-6H PRN (Reason: pain) Qty: 100 0RF Trulance 3 mg tablet 3 mg PO DAILY Qty: 30 6RF lubiprostone [Amitiza] 24 mcg capsule 24 mcg PO BID Qty: 60 3RF Follow-up/Referrals: Valdo Neely MD [Primary Care Provider, Family Practice] Time of Disposition: 13:49
--- OUTSIDE RECORDS SUMMARY | 2024-12-09 12:17 | XMS_ITS | Encounter Summary ---
Author Organization [facility] Address [address] [place] [address] Care Team Providers Care Vessel Operator Name Role Phone Jad Salcedo MD Unavailable Mushtaq Moore MD Primary Care Provider [phone] Reason for Referral * Consultation (Routine) - Closed Specialty Diagnoses / Procedures Referred By Contac t Referred To Contact Orthopedics Diagnoses Pain in left ankle and joints of left foot Shola Mark MD [address] [address] Phone: tel: fax: [facility] - Orthopedic Surgery [address] [place] [address] Phone: tel: fax: Referral ID Status Reason Start Date Expiration Date V isits Requested Visits Authorized [id number] Closed Specialty Services Required 02/07/2024 02/06/2025 1 1 Encounter Details Date Type Department Care Team (Latest Contact Info) Description 02/07/2024 Transcribe Orders [facility] - Centralized Scheduling [address] [place] [id number] Shola Mark MD [address] [address] Pain in left ankle and joints of left foot Social History Tobacco Use Types Packs/Day Years Used Date Smoking Tobacco: Former Cigarettes Smokeless Tobacco: Never Alcohol Use Standard Drinks/Week Comments No 0 (1 standard drink = 0.6 oz pur e alcohol) Comments No Sex and Gender Information Value Date Recorded Sex Assigned at Not on file 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 Gender Identity Not on file Sexual Orientation Not on file documented as of this encounter Plan of Treatment Upcoming Encounters Date Type Department Care Team (Late st Contact Info) Description 01/04/2025 9:45 AM CDT Office Visit [facility] - Orthopedic Surgery [address] [place] [address] Soraida Gary PA [facility] [place] [id number] Scheduled Referrals Name Type Priority Associated Diagnoses Order Schedule AMB REFERRAL TO ORTHOPEDICS Outpatient Referral Routine Pain in left ankle and joints of left foot 1 Occurrences starting 02/07/2024 until 02/06/2025 documented as of this encounter Visit Diagnoses Diagnosis Pain in left ankle and joints of left foot- Primary documented in this encounter Care Teams Vessel Operator Relationship Specialty Start Date End Date Mushtaq Moore MD [address] [place] [address] PCP - General Vascular Surgery 08/17/24 Harshad-Jad Wayne MD Obstetrics and Gynecology 11/20/12 documented as of this encounter
--- OUTSIDE RECORDS SUMMARY | 2024-12-09 12:17 | XMS_ITS | Clinical Summary ---
Author Organization [facility] Address [address] [facility] [place] [address] Care Team Providers Care Studio Director Name Role Phone Jad Salcedo MD Unavailable [phone] Mushtaq Moore MD Primary Care Provider [phone] Source Comments [facility],non-owned Affiliates and Associated Physician Practices is amultiple site organization consisting of ambulatory clinics and hospital sitesin [place], [place] and [place]. This disclosure is being madepursuant to the Care Everywhere program and may not contain all information available regarding this patient. Last updated 17.[facility] Allergies Active Allergy Reactions Criticality Noted Date [...] IF NO RESULTS 4 Active HYDROcodone-acet aminophen ([place]) 5-325 MG tablet TAKE 1 TAB BY [...] Visit [facility] - Orthopedic Surgery [address] [place] [phone] Soarida Gary PA Achilles tendinitis of left lower extremity (Primary Dx); Sprain of left ankle, unspecified ligament, subsequent encounter 10/08/2024 Travel 09/10/2024 10:45 AM CDT Office Visit [facility] - Orthopedic [facility] [address] [place] [phone] Soraida Gary PA Sprain of left ankle, unspecified ligament, subsequent encounter (Primary Dx); Achilles tendinitis of left lower extremity 09/10/2024 Travel from Last 3 Months Social History [...] on file 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 Gender Identity Not on file Sexual Orientation [...] Description 01/04/2025 9:45 AM CDT Office Visit [facility] - Orthopedic Surgery [address] [place] [address] Soraida Gary PA [address] [place] [address] Health Maintenance Due Date Last Done Comments LIPID TESTING 1981 MAMMOGRAM 1981 HIV SCREENING 1996 HEPATITIS C SCREENING 05/15/1999 DTAP/TDAP/TD VACCINES (1 - Tdap) 2000 HEPATITIS B VACCINE (1 of 3 - 19+ 3-dose series) 2000 PAP SMEAR 2002 HPV VACCINE (1 - 3-dose SCDM series) 2008 COVID-19 VACCINE (1 - 2023-2 5 season) 2023 DEPRESSION SCREENING 04/08/2024 SCREENING FOR DIABETES 08/24/2024 3, 10/15/2012 INFLUENZA VACCINE (#1) 2024 ZOSTER VACCINE (1 of 2) 2031 HIB VACCINE Aged Out No longer eligi ble based on patient's age to complete this topic MENINGOCOCCAL (Group B) VACCINE SHARED DECISION-MAKING Aged Out No longer eligible based on patient's age to complete this topic MENINGOCOCCAL GROUPS A/C/Y/W VACCINE Aged Out No longer eligible b ased on patient's age to complete this topic PNEUMOCOCCAL VACCINE Aged Out No long er eligible based on patient's age to complete this topic Procedures Procedure Name Priority Date/Time Associated Diagnosis Comments GLUCOSE - POINT OF CARE Routine 10/15/2012 6:56 PM CDT from Last 3 Months or Most Recently Relevant to Health Maintenance Results * GLUCOSE - POINT OF CARE (10/15/2012 6:56 PM CDT) [facility] Glucose WB/POC 90 70 - 106 mg/dL 10/15/2012 6:58 PM CDT [facility] Blood specimen (specimen) BLOOD SPECIMEN / Unknown 10/15/2012 6:56 PM CDT 10/15/2012 6:58 PM CDT Narrative [facility] - 10/15/2012 6:58 PM CDT NOTIFIED CAREGIVER us Sari Carl MD LAB - POINT OF CARE ORDERABLES F inal Result [facility] [address] [place] [address] from Last 3 Months or Most Recently Relevant to Health Maintenance Insurance [facility] SELF PAY NO INSURANCE Member Subscriber Plan / Payer (Ef fective for All Dates) Name:Bay Carrillo Member ID:Not on file Relation to Subscriber:Not on file Name:BAY CARRILLO Subscriber ID:Not on file (Home) Address: [address] [place] [address] Payer ID:Not on file Group ID:Not on file Type:Self Pay Address: [place], [place] Advance Directives * FULL RESUSCITATION (Latest Code Status on File) Date Activated Date Inactivated Comments 10/15/2012 10:40 PM 10/16/2012 6:40 PM Care Teams Studio Director Relationship Specialty Start Date End Date Mushtaq Moore MD [address] [place] [address] PCP - General Vascular Surgery 08/17/24 Harshad-Jad Wayne MD Obstetrics and Gynecology 11/20/12
--- OUTSIDE RECORDS SUMMARY | 2024-12-09 12:17 | XMS_ITS | Clinical Summary ---
Author Organization [facility] Address [facility] [place] [address] Care Team Providers Care Promotional Marketing Analyst Name Role Phone Shola Mark MD Primary Care Provider [phone] Allergies Active Allergy Reactions Criticality Noted Date [...] COVID-19 Vaccine ( - 2023-2 5 season) 2024 DTaP, Tdap and Td Vaccines ( [...] patient's age to complete this topic Insurance [employer] Care Teams Promotional Marketing Analyst Relationship Specialty Start Date End Date Shola Mark MD PCP - General 08/12/16
--- OUTSIDE RECORDS SUMMARY | 2024-12-09 12:17 | XMS_ITS | Clinical Summary ---
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
[2024-12-09 12:26] LABS: Add Urine Microscopic? YES; Appearance Urine Clear (Clear); Glucose Urine UA Negative (Negative); Leukocyte Esterase Ur Negative LEU/UL (Negative); Nitrate Urine Negative (Negative); Non Pathogenic Casts 0-2; Specific Grav Ur > 1.045 (1.001-1.035)
[2024-12-09 12:31] VITALS: BP 128/84; PULSE 69; RESP 20; O2SAT 99
--- NOTE | 2024-12-09 14:19 | PM.IMHP ---
H&P: HPI History of Present Illness Date/Time: 12/09/24 14:19 Chief Complaint: Abdominal pain Narrative: This is a 44-year-old woman with a history of GERD and regurgitation of food, who is known to our service from a recent robotic laparoscopic repair hiatal hernia with partial fundoplication and fundopexy on 12/02/[address] Moore. She was discharged 4 days ago from the hospital with a prescription for liquid oxycodone for her postoperative pain. She had issues with picking up this prescription due to the pharmacy not having this in stock. We attempted to send the prescription to another pharmacy as well, and she was unable to warehouse order picker the prescription there. Over the past few days, she complains of increasing abdominal pain. She complains of generalized abdominal pain that seemed unbearable today. She then presented to the ED today due to her uncontrolled pain. Labs were unremarkable. CT scan of the abdomen and pelvis showed gas distended stomach with edematous appearing localized wall thickening in the proximal stomach likely related to reported recent hiatal hernia repair and partial fundoplication. New regions of decreased attenuation along the posteriolateral margin of the liver, which could represent contusions related to the recent surgery, and small amount of likely physiologic free fluid in the cul-de-sac. Our service was then contacted and the patient is now seen in the ED. her abdominal pain has improved since receiving IV Dilaudid. She is more comfortable at this time. She denies any issues with dysphagia or regurgitation since surgery. She has not had a bowel movement since her discharge 4 days ago and is not passing flatus today. She denies any nausea and reportedly is following the full liquid diet at home. Review of Systems Review of Systems: All systems reviewed & are unremarkable except as noted in HPI and below PMFSH Past Medical History Medical History (Updated 12/09/24 @ 13:49 by Sravan Vizcarra MD) GERD (gastroesophageal reflux disease) Gastritis Nausea and vomiting Change in bowel habits History of migraine History of gastroesophageal reflux (GERD) Surgical History Surgical History History of repair of hiatal hernia 12/02/24 - Robotic laparoscopic repair hiatal hernia with partial fundoplication and fundopexy Social History Social History Smoking packs per day: 3 Smoking cigarettes per day: 60.0 Years smoked: 7 Smoking pack-years: 21.00 Smoking status: Former smoker Tobacco type: cigarettes and e-cigarettes/vaping Smoking end date: 04/08/12 Additional smoking assessment comments: Vaping only Alcohol intake: never Substance use: never Do You Feel Safe in your Home?: Yes Lack of Transportation: No Lack of Food: Never True Current Housing: I Have Housing Concerned About Future Housing: No Difficulty Paying Gas/Electric Bills: No Difficulty Paying for Meds: No Currently Unemployed: No Education: High School Diploma/GED Difficulty w/ Childcare or Family Care: No Living arrangements: with family Spiritual care concerns: No Meds Home Medications and Allergies Home Medications ?Medication ?Instructions ?Recorded ?Confirmed ?Type nifedipine 30 mg tablet,extended 30 mg PO DAILY 05/12/24 12/02/24 History release tramadol 100 mg capsule 100 mg PO .prn 05/12/24 12/02/24 History 24h,extended release(25-75) dicyclomine 20 mg tablet 20 mg PO TID 1 month #90 tabs 08/04/24 12/02/24 Rx prochlorperazine maleate 10 mg 10 mg PO Q8H PRN nausea and 08/04/24 12/02/24 Rx tablet (Compazine) vomiting #30 tabs linaclotide 290 mcg capsule 290 mcg Capsule#3 Samples 11/05/24 12/02/24 Sample (Linzess) plecanatide 3 mg tablet (Trulance) 3 mg PO DAILY #30 tabs 11/23/24 12/02/24 Rx lubiprostone 24 mcg capsule 24 mcg PO BID #60 caps 11/25/24 12/02/24 Rx (Amitiza) acetaminophen 160 mg/5 mL oral 650 mg (20.3125 mL) PO Q4H PRN 12/05/24 Rx suspension (Nortemp) Mild Pain (1-3) Or Fever #100 mL oxycodone-acetaminophen 5 mg-325 5 ml PO Q4-6H PRN pain #100 mL 12/05/24 Rx mg/5 mL oral solution polyethylene glycol 3350 17 gram 17 g PO QAM #7 ea 12/05/24 Rx oral powder packet (Miralax) sennosides 8.6 mg-docusate sodium 2 tab PO HS #8 tabs 12/05/24 Rx 50 mg tablet (Senokot-S) Allergies Allergy/AdvReac Type Severity Reaction Status Date / Time amoxicillin Allergy Swelling Verified 12/09/24 11:04 Vital Signs Vital Signs - 24 hr 12/09/24 10:38 12/09/24 12:31 Temperature 98.2 F Pulse Rate 83 69 Respiratory Rate 20 20 Blood Pressure 143/90 H 128/84 Pulse Oximetry 100 99 Oxygen Delivery Room Air Exam Const: General: comfortable and no acute distress Nutritional Appearance: average body habitus Orientation/consciousness: patient oriented x3 HENMT: Head: normocephalic and atraumatic Ears: hearing grossly normal bilaterally Mouth: Yes moist mucous membranes Eyes: General: appearance normal, both eyes and all related structures Pupils: Equal, round and reactive pupils present Neck: Neck: normal visual inspection and full ROM Resp: Effort & Inspection: no respiratory distress Auscultation: clear to auscultation bilaterally Cardio: Rate: regular rate Rhythm: regular rhythm Peripheral pulses: Peripheral pulses 2+ throughout GI: Inspection: non-distended and incision (dry and glue intact, no erythema or drainage) GI Palp: Yes Soft to palpation, Yes Tenderness to palpation present (GI) (mild), No Guarding due to palpation present (GI) and No Rebound tenderness present Auscultation: Hypoactive bowel sounds present Skin: General skin exam: normal color Neuro: General: moves all extremities and no focal motor deficits Speech: normal speech Motor exam (neuro): 5/5 motor strength present throughout Extrem: General: normal to inspection and no edema Psych: Mental Status: mental status grossly normal Attitude: cooperative Insight: Good insight present (Psych) Judgement: Good judgement present (Psych) H&P: Results Labs Labs: Short CBC 12/09/24 Range/Units 11:10 WBC 9.9 (4.5-10.0) K/mm3 Hgb 12.8 (12.0-15.0) g/dL Hct 40.6 (37.0-47.0) % Plt Count 489 H D (150-375) k/mm3 BMP 12/09/24 12/09/24 11:10 11:22 Sodium 138 Potassium 4.1 Chloride 104 Carbon Dioxide 25 BUN 8 D Creatinine 0.73 0.80 Glucose 95 Calcium 9.6 Liver Function 12/09/24 Range/Units 11:10 Total Bilirubin 0.3 (0.2-1.3) mg/dL AST 34 (14-36) U/L ALT 101 H (6-35) U/L Alkaline Phosphatase 76 (38-126) U/L Albumin 4.1 (3.5-5.1) g/dL Urine 12/09/24 Range/Units 12:07 Urine Color Yellow (Yellow) Urine Appearance Clear (Clear) Urine pH 6.0 (5.0-9.0) Ur Specific [place] > 1.045 H (1.001-1.035) Urine Protein Negative (Negative) mg/dL Urine Glucose (UA) Negative (Negative) mg/dL Imaging CT scan - abdomen: Radiologist's impression: ITS Impressions Abdomen/Pelvis CT 12/09/24 11:50 IMPRESSION: 1. Edematous-appearing localized wall thickening in the proximal stomach near the gastric hiatus likely related to reported recent hiatal hernia repair and partial fundoplication. 2. New geographic regions of decreased attenuation/enhancement along the posterolateral margin of the lateral segment left hepatic lobe which given proximity to the stomach could represent contusions related to the recent surgery. Would consider follow-up MRI in a few months to confirm resolution and exclude the less likely development of a hepatic neoplasm new since 02/04/2024. 3. Small amount of likely physiologic free fluid in the cul-de-sac. Assessment and Plan Assessment and plan (1) Post-operative pain: Code(s): G89.18 - Other acute postprocedural pain Status: Acute Assessment and Plan: Patient presents with generalized abdominal pain 1 week postop robotic laparoscopic repair of hiatal hernia with partial fundoplication and fundopexy. She was discharged 4 days ago and her postoperative pain was controlled at that time with oxycodone. She was not able to warehouse order picker her prescription for oxycodone since discharge due to issues with having this in stock, despite attempting sending this to multiple pharmacies. She has not had any issues with dysphagia or regurgitation. CT scan of the abdomen and pelvis showed the repair to be intact with postoperative changes, but no findings of free intraperitoneal air or other acute findings that would be causing her pain. This is likely uncontrolled postoperative pain related to her inability to receive the narcotic pain medication sent to the pharmacy. We will admit her for observation and management of uncontrolled postoperative pain. She is not having any issues with tolerating the full liquid diet, which we will resume. She hasn't had a bowel movement since discharge 4 days ago, so I will resume her Miralax and Senokot. Will reassess tomorrow morning and we will plan to call the pharmacy prior to discharge to verify her medication will be filled to avoid this from recurring. (2) History of repair of hiatal hernia: Code(s): Z98.890 - Other specified postprocedural states; Z87.19 - Personal history of other diseases of the digestive system Status: Acute Assessment and Plan: Robotic laparoscopic hiatal hernia repair on 12/02/[address] Moore. Repair intact on CT. Incisions healing well. See plan above. (3) GERD (gastroesophageal reflux disease): Qualifiers: Esophagitis presence: esophagitis presence not specified Qualified Code(s): K21.9 - Gastro-esophageal reflux disease without esophagitis Code(s): K21.9 - Gastro-esophageal reflux disease without esophagitis Status: Chronic (4) Regurgitation of food: Code(s): R11.10 - Vomiting, unspecified Status: Chronic Assessment and Plan: No issues with regurgitation since surgery. (5) Irritable bowel syndrome (IBS): Qualifiers: Irritable bowel syndrome type: with constipation Qualified Code(s): K58.1 - Irritable bowel syndrome with constipation Code(s): K58.9 - Irritable bowel syndrome, unspecified Status: Chronic Plan I have discussed the patient's case and plan of care with Dr. Moore.
[2024-12-09 14:45] VITALS: BP 143/84; PULSE 80; RESP 18; O2SAT 99
[2024-12-09 16:00] VITALS: BP 123/82; PULSE 70; RESP 18; TEMP 36.4; O2SAT 99
[2024-12-09 16:06] VITALS: BMI 38.2
--- NOTE | 2024-12-09 16:10 | ADMGEN ---
This patient, Bay Cutler, was admitted to [address] [place] [address] Room 300-01. Patient/family oriented to hospital policies and general routines including ID bracelet, bed and alarms, visiting hours, pain management, procedures, bathroom and other care routines, personal items, smoking policy, room service/diet, and visiting hours. Information on how to activate the Rapid Response Team has been discussed. Patient/Family are encouraged to report perceived risks to care and to ask questions if they do not understand what they are told or what they should do.
[2024-12-09] MEDS: KCL 20 MEQ/0.45% NS 1,000 ML 80 ML IV CONT (16:25)
[2024-12-09] MEDS: ENOXAPARIN 40 MG/0.4 ML SYRINGE SUB-Q (16:26)
--- OUTSIDE RECORDS SUMMARY | 2024-12-09 17:08 | XMS_ITS | Encounter Summary ---
Author Organization [facility] Address [address] [place] [address] Care Team Providers Care Bow Maker Name Role Phone Jad Salcedo MD Unavailable [phone] Mushtaq Moore MD Primary Care Provider [phone] Reason for Referral * Consultation (Routine) - Closed Specialty Diagnoses / Procedures Referred By Contac t Referred To Contact Orthopedics Diagnoses Pain in left ankle and joints of left foot Shola Mark MD [address] [address] Phone: tel: fax: [facility] - Orthopedic Surgery [address] [place] [address] Phone: tel: fax: Referral ID Status Reason Start Date Expiration Date V isits Requested Visits Authorized [id number] Closed Specialty Services Required 02/07/2024 02/06/2025 1 1 Encounter Details Date Type Department Care Team (Latest Contact Info) Description 02/07/2024 Transcribe Orders [facility] - Centralized Scheduling [address] [place] [id number] Shola Mark MD [address] [address] Pain in left ankle and joints of left foot Social History Tobacco Use Types Packs/Day Years Used Date Smoking Tobacco: Former Cigarettes Smokeless Tobacco: Never Alcohol Use Standard Drinks/Week Comments No 0 (1 standard drink = 0.6 oz pur e alcohol) Comments No Sex and Gender Information Value Date Recorded Sex Assigned at Not on file 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 [place] [phone] Scheduled Referrals Name Type Priority Associated Diagnoses Order Schedule AMB REFERRAL TO ORTHOPEDICS Outpatient Referral Routine Pain in left ankle and joints of left foot 1 Occurrences starting 02/07/2024 until 02/06/2025 documented as of this encounter Visit Diagnoses Diagnosis Pain in left ankle and joints of left foot- Primary documented in this encounter Care Teams Bow Maker Relationship Specialty Start Date End Date Mushtaq Moore MD [address] [place] [address] PCP - General Vascular Surgery 08/17/24 Harshad-Jad Wayne MD Obstetrics and Gynecology 11/20/12 documented as of this encounter
--- OUTSIDE RECORDS SUMMARY | 2024-12-09 17:08 | XMS_ITS | Clinical Summary ---
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
--- OUTSIDE RECORDS SUMMARY | 2024-12-09 17:08 | XMS_ITS | Clinical Summary ---
Author Organization [facility] Address [address] [facility] [place] [address] Care Team Providers Care Pocket And Pulley Machine Operator Name Role Phone Jad Salcedo MD Unavailable Mushtaq Moore MD Primary Care Provider Source Comments [facility],non-owned Affiliates and Associated Physician Practices is amultiple site organization consisting of ambulatory clinics and hospital sitesin [place], [place], [place] and [place]. This disclosure is being madepursuant to the Care Everywhere program and may not contain all information available regarding this patient. Last updated 17.[facility] Allergies Active Allergy Reactions Criticality Noted Date [...] IF NO RESULTS 4 Active HYDROcodone-acet aminophen (Dendron) 5-325 MG tablet TAKE 1 TAB BY [...] Visit [facility] - Orthopedic Surgery [address] [place] [phone] Soraida Gary PA Achilles tendinitis of left lower extremity (Primary Dx); Sprain of left ankle, unspecified ligament, subsequent encounter 10/08/2024 Travel 09/10/2024 10:45 AM CDT Office Visit [facility] - Orthopedic [facility] [address] [place] [phone] Soraida Gary PA Sprain of left ankle, [...] on file 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 Gender Identity Not on file Sexual Orientation [...] 01/04/2025 9:45 AM CDT Office Visit [facility] Surgery [address] [place] [address] Soraida Gary PA [address] [place] [address] Health Maintenance Due Date Last Done Comments [...] POINT OF CARE (10/15/2012 6:56 PM CDT) [facility] Glucose WB/POC 90 70 - 106 mg/dL 10/15/2012 6:58 PM CDT [facility] Blood specimen (specimen) BLOOD SPECIMEN / Unknown 10/15/2012 6:56 PM CDT 10/15/2012 6:58 PM CDT Narrative [facility] - 10/15/2012 6:58 PM CDT NOTIFIED CAREGIVER us Sari Carl MD LAB - POINT OF CARE ORDERABLES F inal Result [facility] [address] [place] [address] from Last 3 Months or Most Recently Relevant to Health Maintenance Insurance [facility] SELF PAY NO INSURANCE Member Subscriber Plan / Payer (Ef fective for All Dates) Name:Bay Carrillo Member ID:Not on file Relation to Subscriber:Not on file Name:BAY CARRILLO Subscriber ID:Not on file (Home) Address: [address] [place] [address] Payer ID:Not on file Group ID:Not on file Type:Self Pay Address: [place], [place] Advance Directives * FULL RESUSCITATION (Latest Code Status on File) Date Activated Date Inactivated Comments 10/15/2012 10:40 PM 10/16/2012 6:40 PM Care Teams Pocket And Pulley Machine Operator Relationship Specialty Start Date End Date Mushtaq Moore MD [address] [place] [address] PCP - General Vascular Surgery 08/17/24 Harshad-Jad Wayne MD Obstetrics and Gynecology 11/20/12
--- OUTSIDE RECORDS SUMMARY | 2024-12-09 17:08 | XMS_ITS | Clinical Summary ---
Author Organization [facility] Address [facility] [place] [address] Care Team Providers Care National Sales Director Name Role Phone Shola Mark MD Primary Care Provider [phone] Allergies Active Allergy Reactions Criticality Noted Date [...] patient's age to complete this topic Insurance [place] Care Teams National Sales Director Relationship Specialty Start Date End Date Shola Mark MD PCP - General 08/12/16
[2024-12-09] MEDS: MINERAL OIL 30 ML UDC 15 ML PO (18:26)
[2024-12-09] MEDS: PSYLLIUM SUGAR FREE POWDER PACKET 1 PACKET PO (18:26)
[2024-12-09 19:40] VITALS: BP 117/84; PULSE 71; RESP 18; TEMP 36.6; O2SAT 98
[2024-12-09] MEDS: oxyCODONE (*CRX) 5 MG/5 ML ORAL SOLN IR 10 MG PO (20:12)
[2024-12-09] MEDS: SENNA/DOCUSATE SODIUM TABLET 2 TAB PO (20:15)
[2024-12-10] MEDS: HYDROmorphone HCL INJ (*CRX) 1 MG/ML SYR IV PUSH (00:03)
[2024-12-10 05:40] VITALS: BP 107/67; PULSE 66; RESP 12; TEMP 36.5; O2SAT 99
[2024-12-10 05:59] LABS: Hematocrit 35.6 % (37.0-47.0); Hemoglobin 11.1 g/dL (12.0-15.0); Mean Corpuscular HGB Conc 31.2 g/dl (32-36); Mean Corpuscular Hemoglobin 26.4 pg (26-34); Mean Corpuscular Volume 84.6 fl (80-100); Platelet Count Result 419 k/mm3 (150-375); Red Blood Count 4.21 M/mm3 (4.2-5.4); White Blood Count 10.0 K/mm3 (4.5-10.0)
[2024-12-10 06:25] LABS: Anion Gap 7 mmol/L (4-12); Blood Urea Nitrogen 5 mg/dL (7-17); Calcium 8.5 mg/dL (8.4-10.2); Carbon Dioxide 21 mmol/L (22-30); Chloride 106 mmol/L (98-107); Estimated CRCL calculation 115 ml/min; Estimated Glomerular Filt Rate > 60; Glucose 84 mg/dL (65-110); Potassium 3.9 mmol/L (3.4-5.0); Sodium 134 mmol/L (137-145)
--- NOTE | 2024-12-10 08:01 | P.DS_ITS ---
DS: Admitting Diagnosis Discharge Date 12/10/2024 Admitting Diagnosis * postoperative pain * history hiatal hernia repair with fundoplication 12/02/2024 * constipation DS: Discharge Diagnosis Discharge Diagnosis (1) Post-operative pain: Code(s): G89.18 - Other acute postprocedural pain Status: Acute Assessment and Plan: pain controlled with oxycodone elix. I called [facility] pharmacy and the oxycodone elix is back ordered. They will not be able to get this any time in the near future. Patient was able to tolerate Percocet pills. She was discharged with a prescription for Percocet for postop pain control. (2) History of repair of hiatal hernia: Code(s): Z98.890 - Other specified postprocedural states; Z87.19 - Personal history of other diseases of the digestive system Status: Acute Assessment and Plan: Eight days ago. Imaging shows repair intact and fundoplication still slightly swollen but no abnormalities. This would be expected 1 week postoperatively. (3) Constipation: Qualifiers: Constipation type: unspecified constipation type Qualified Code(s): K59.00 - Constipation, unspecified Code(s): K59.00 - Constipation, unspecified Status: Chronic Assessment and Plan: Patient does take Linzess. Has not had a bowel movement in 4 days. Will send home on Linzess as well as Metamucil, mineral oil, and Senokot at . Immobility and narcotic usage has no doubt contributed to make her chronic constipation more significant. She did receive a soap suds enema prior to discharge. DS: Summary Hospital Course Hospital Course: Patient was unable to acquire her prescribed oxycodone elix from [facility] pharmacy. Apparently, they did not know it was back were ordered, and told the patient that they were going to have it ready. I called the pharmacist this morning and she told me that this was back ordered and they would not be able to fill this prescription. The other [facility], inside showed no leuks and [facility], also does not have this medication. We tried her on oral Percocet the day of discharge. It provided adequate pain relief and she was able to swallow it without difficulty. She is able to go home with the Percocet tablets today. She also has not had a bowel movement in 4 days. She was given Metamucil, mineral oil, Senokot and her Linzess. She was given a soapsuds enema the day of discharge as well. Status at Discharge Functional status at discharge: independent ambulation Time Spent with Patient Time attestation: Total time spent providing and/or coordinating discharge services: Time spent: Less than 30 minutes Exam Const: General: cooperative and comfortable Orientation/consciousness: patient oriented x3 GI: Inspection: incision ( Healing well) GI Palp: Yes Soft to palpation and No Tenderness to palpation present (GI) Auscultation: normal bowel sounds DS: Data Data Completed and Pending Labs on day of discharge: Labs from last 24 hours 12/10/24 12/09/24 12/09/24 04:54 12:07 11:22 WBC 10.0 RBC 4.21 Hgb 11.1 L Hct 35.6 L MCV 84.6 MCH 26.4 MCHC 31.2 L RDW 14.4 Plt Count 419 H MPV 8.9 Immature Gran % (Auto) Neut % (Auto) Lymph % (Auto) Page % (Auto) Eos % (Auto) Baso % (Auto) Lymph # (Auto) Page # (Auto) Eos # (Auto) Baso # (Auto) Abs Immat Gran (auto) Absolute Neuts (auto) Absolute Nucleated RBC Nucleated RBC % Sodium 134 L Potassium 3.9 Chloride 106 Carbon Dioxide 21 L Anion Gap 7 BUN 5 L Creatinine 0.62 L 0.80 Estim Creat Clear Calc 115 Not Reportable Estimated GFR > 60 > 60 Glucose 84 Lactic Acid Calcium 8.5 Total Bilirubin AST ALT Alkaline Phosphatase Total Protein Albumin Lipase Urine Color Yellow Urine Appearance Clear Urine pH 6.0 Ur Specific Carrier > 1.045 H Urine Protein Negative Urine Glucose (UA) Negative Urine Ketones Negative Ur Blood (Man) 3+ H Urine Nitrate Negative Urine Bilirubin Negative Urine Urobilinogen 0.2 Leukocyte Esterase Rfl Negative Urine RBC 21-50 H Urine WBC 0-5 Ur Squamous Epith Cells Occasional Urine Bacteria Rare Urine Casts 0-2 12/09/24 11:10 WBC 9.9 RBC 4.87 Hgb 12.8 Hct 40.6 MCV 83.4 MCH 26.3 MCHC 31.5 L RDW 14.6 H Plt Count 489 H D MPV 8.4 Immature Gran % (Auto) 0.6 H Neut % (Auto) 65.3 Lymph % (Auto) 21.2 Page % (Auto) 8.6 H Eos % (Auto) 4.0 Baso % (Auto) 0.3 Lymph # (Auto) 2.10 Page # (Auto) 0.9 H Eos # (Auto) 0.4 H Baso # (Auto) 0.0 Abs Immat Gran (auto) 0.06 H Absolute Neuts (auto) 6.5 Absolute Nucleated RBC 0.000 Nucleated RBC % 0.0 Sodium 138 Potassium 4.1 Chloride 104 Carbon Dioxide 25 Anion Gap 9 BUN 8 D Creatinine 0.73 Estim Creat Clear Calc Not Reportable Estimated GFR > 60 Glucose 95 Lactic Acid 0.9 Calcium 9.6 Total Bilirubin 0.3 AST 34 ALT 101 H Alkaline Phosphatase 76 Total Protein 7.7 Albumin 4.1 Lipase 52 Urine Color Urine Appearance Urine pH Ur Specific Carrier Urine Protein Urine Glucose (UA) Urine Ketones Ur Blood (Man) Urine Nitrate Urine Bilirubin Urine Urobilinogen Leukocyte Esterase Rfl Urine RBC Urine WBC Ur Squamous Epith Cells Urine Bacteria Urine Casts Discharge Plan Discharge Attending physician on discharge: Mushtaq Moore Discharging Clinician: Mushtaq Moore Anticipated Discharge Date/Time: 12/10/24 14:37 Patient Disposition: Home Activity: may shower, no straining and as tolerated Diet: other - see discharge instructions Wound Care Instructions: incision open to air Discharge Instructions: * Ambulate 3-4 x per day and as tolerated. * No lifting over 15-20lbs. * May bathe or shower. * Stairs are OK. * May drive a car. * Stay on full liquid diet as before. * Keep appointment with Dr. Moore on 12/17/2024. * Continue Linzess, Metamucil, mineral oil, Senokot for constipation until you see Dr. Moore on 12/17/2024. Patient Instructions: Antibiotic Form Patient Language: Tamazight Stand Alone Forms: General Discharge Information Follow-up/Referrals: Mushtaq Moore MD [Physician, General Surgery] - Keep Reg. Scheduled Appt. Discharge Medications: New Mineral Oil Light Oil 15 applic PO Q12HR Qty: 150 0RF Metamucil Fiber (aspartame) 3.4 gram Powder In Packet 1 packet PO Q12HR 7 Days Qty: 14 0RF oxycodone-acetaminophen [Percocet] 5-325 mg tablet 1 - 2 tablet PO Q6H PRN (Reason: pain) Qty: 20 0RF Continued nifedipine 30 mg tablet extended release 30 mg PO DAILY linaclotide 290 mcg capsule 290 mcg capsule 0RF dicyclomine 20 mg tablet 20 mg PO TID 30 Days Qty: 90 11RF sumatriptan succinate 50 mg tablet 50 mg PO .Q4HR PRN (Reason: migraine headache) sennosides-docusate sodium [Senokot-S] 8.6-50 mg Tablet 2 tab PO HS Qty: 8 0RF Trulance 3 mg tablet 3 mg PO DAILY Qty: 30 6RF Discontinued polyethylene glycol 3350 [Miralax] 17 gram Powder In Packet 17 g PO QAM Qty: 7 0RF Date of admission: 12/09/24 13:47 Primary Care Provider: Valdo Neely Admitting Provider: Mushtaq Moore Attending physician on admission: Mushtaq Moore Condition: Improved
[2024-12-10] MEDS: oxyCODONE/ACETAMINOPHEN (*CRX) 5-325 MG TABLET 2 TABLET PO (09:09)
[2024-12-10] MEDS: LINACLOTIDE 145 MCG CAPSULE 290 MCG PO (09:10)
[2024-12-10] MEDS: DICYCLOMINE HCL 10 MG CAPSULE 20 MG PO ×2 (09:10→13:35)
[2024-12-10] MEDS: MINERAL OIL 30 ML UDC 15 ML PO (09:10)
[2024-12-10] MEDS: ENOXAPARIN 40 MG/0.4 ML SYRINGE SUB-Q (09:10)
[2024-12-10] MEDS: PSYLLIUM SUGAR FREE POWDER PACKET 1 PACKET PO (09:10)
[2024-12-10] MEDS: oxyCODONE/ACETAMINOPHEN (*CRX) 5-325 MG TABLET 1 TABLET PO (13:36)
== END 2024-12-10 14:55 | disposition home or self-care (01) ==
LOC: ANHED 13:49 → ANH3MEDSUR 16:05
PROVIDERS: Admitting Provider Surgery; Emergency Provider Emergency Medicine; PCP Emergency Medicine; Visit Provider Surgery
DX: G89.18 Other acute postprocedural pain (principal); K59.03 Drug induced constipation; K58.1 Irritable bowel syndrome with constipation; Z87.19 Personal history of other diseases of the digestive system; K21.9 Gastro-esophageal reflux disease without esophagitis; Z87.891 Personal history of nicotine dependence; Z79.891 Long term (current) use of opiate analgesic
CPT/HCPCS: 36415; 74177; 80048; 80053; 81001; 83605; 83690; 85025; 85027; 96365; 96372; 96374; 96375; 96376; 99285; A9270; G0378; G0379; J0780; J1171; J1650; J7030; Q9967

== ENCOUNTER 2025-01-04 09:58 | Outpatient (CLI) | payer OTHER, SELFPAY ==
--- NOTE | ~2025-01-04 | XR_ITS ---
EXAMINATION: XR chest 2V, 01/04/2025 10:10 CDT HISTORY: R06.00 - Dyspnea, unspecified SURG X 1 MO. NO FEVER COMPARISON: No comparisons available. Technique: 2 views obtained. Findings: The lungs are clear, no effusion. No pneumothorax. Heart is normal size. Mediastinal and hilar contours are within normal limits. Bony thorax no acute abnormality. Impression: No acute cardiopulmonary abnormality. Reviewed, dictated and finalized at location P. Impression: No acute cardiopulmonary abnormality.
--- OUTSIDE RECORDS SUMMARY | 2025-01-04 10:38 | XMS_ITS | Clinical Summary ---
Author Organization [facility] [employer] Address [address] [place] [address] Care Team Providers Care Lyft Driver Name Role Phone Jad Salcedo MD Unavailable [phone] Mushtaq Moore MD Primary Care Provider [phone] Source Comments [facility],non-owned Affiliates and Associated Physician Practices is amultiple site organization consisting of ambulatory clinics and hospital sitesin [place], [place], [place] and [place]. This disclosure is being madepursuant to the Care Everywhere program and may not contain all information available regarding this patient. 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 Gender Identity Not on file Sexual Orientation [...] Care Team (Late st Contact Info) Description 01/07/2025 10:45 AM CDT Office Visit [facility] - [facility] [address] [place] [phone] Soraida Gary PA [facility] [place] [phone] 01/07/2025 11:00 AM CDT Appointment [facility] - Orthopedics [address] [place], [facility] [address] [place] [phone] Soraida Gary PA [facility] [place] [phone] Health Maintenance Due Date Last Done Comments LIPID TESTING 1981 MAMMOGRAM 1981 HIV SCREENING 1996 HEPATITIS C SCREENING 05/15/1999 DTAP/TDAP/TD VACCINES (1 - Tdap) 2000 HEPATITIS B VACCINE (1 of 3 - 19+ 3-dose series) 2000 PAP SMEAR 2002 HPV VACCINE (1 - 3-dose SCDM series) 2008 DEPRESSION SCREENING 04/08/2024 SCREENING FOR DIABETES 08/24/2024 3, 10/15/2012 COVID-19 VACCINE (1 - 2023-2 5 season) 2024 INFLUENZA VACCINE (#1) 2024 ZOSTER VACCINE (1 [...] POINT OF CARE (10/15/2012 6:56 PM CDT) [facility] Glucose WB/POC 90 70 - 106 mg/dL 10/15/2012 6:58 PM CDT [facility] Blood specimen (specimen) BLOOD SPECIMEN / Unknown 10/15/2012 6:56 PM CDT 10/15/2012 6:58 PM CDT Narrative [facility] - 10/15/2012 6:58 PM CDT NOTIFIED CAREGIVER us Sari Carl MD LAB - POINT OF CARE ORDERABLES F inal Result [facility] [address] [place] [address] from Last 3 Months or Most Recently Relevant to Health Maintenance Insurance [facility]Y NO INSURANCE Member Subscriber Plan / Payer (Ef fective for All Dates) Name:Bay Carrillo Member ID:Not on file Relation to Subscriber:Not on file Name:BAY CARRILLO Subscriber ID:Not on file (Home) Address: [address] [place] [address] Payer ID:Not on file Group ID:Not on file Type:Self Pay Address: [place], [place] Advance Directives * FULL RESUSCITATION (Latest Code Status on File) Date Activated Date Inactivated Comments 10/15/2012 10:40 PM 10/16/2012 6:40 PM Care Teams Lyft Driver Relationship Specialty Start Date End Date Mushtaq Moore MD [address] [place] [address] PCP - General Vascular Surgery 08/17/24 Harshad-Jad Wayne MD Obstetrics and Gynecology 11/20/12
--- OUTSIDE RECORDS SUMMARY | 2025-01-04 10:38 | XMS_ITS | Encounter Summary ---
Author Organization [facility] Address [address] [place] [address] Care Team Providers Care Driver Retraining Instructor Name Role Phone Jad Salcedo MD Unavailable [phone] Mushtaq Moore MD Primary Care Provider [phone] Reason for Referral * Consultation (Routine) - Closed Specialty Diagnoses / Procedures Referred By Contac t Referred To Contact Orthopedics Diagnoses Pain in left ankle and joints of left foot Shola Mark MD [address] [phone] Phone: tel: fax: [facility] - Orthopedic Surgery [address] [place] [address] Phone: tel: fax: Referral ID Status Reason Start Date Expiration Date V isits Requested Visits Authorized [id number] Closed Specialty Services Required 02/07/2024 02/06/2025 1 1 Encounter Details Date Type Department Care Team (Latest Contact Info) Description 02/07/2024 Transcribe Orders [facility] - Centralized Scheduling [address] [place] [phone] Shola Mark MD [address] [phone] Pain in left ankle and joints of left foot Social History Tobacco Use Types Packs/Day Years Used Date Smoking Tobacco: Former Cigarettes Smokeless Tobacco: Never Alcohol Use Standard Drinks/Week Comments No 0 (1 standard drink = 0.6 oz pur e alcohol) Comments No Sex and Gender Information Value Date Recorded Sex Assigned at Not on file 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 Gender Identity Not on file Sexual Orientation Not on file documented as of this encounter Plan of Treatment Upcoming Encounters Date Type Department Care Team (Late st Contact Info) Description 01/07/2025 10:45 AM CDT Office Visit [facility] - Orthopedic Surgery [address] [place] [address] Soraida Gary PA [address] [place] [phone] 01/07/2025 11:00 AM CDT Appointment [facility] - [facility]ics [address] [place] [place] [address] Soraida Gary PA [address] [place] [phone] Scheduled Referrals Name Type Priority Associated Diagnoses Order Schedule AMB REFERRAL TO ORTHOPEDICS Outpatient Referral Routine Pain in left ankle and joints of left foot 1 Occurrences starting 02/07/2024 until 02/06/2025 documented as of this encounter Visit Diagnoses Diagnosis Pain in left ankle and joints of left foot- Primary documented in this encounter Care Teams Driver Retraining Instructor Relationship Specialty Start Date End Date Mushtaq Moore MD [address] [facility] [facility] [address] [place] [address] PCP - General Vascular Surgery 08/17/24 Harshad-Jad Wayne MD Obstetrics and Gynecology 11/20/12 documented as of this encounter
--- OUTSIDE RECORDS SUMMARY | 2025-01-04 10:38 | XMS_ITS | Clinical Summary ---
Author Organization [facility] Address [facility] [place] [address] Care Team Providers Care Director Of Acquisition Marketing Name Role Phone Shola Mark MD Primary Care Provider [phone] Allergies Active Allergy Reactions Criticality Noted Date [...] patient's age to complete this topic Insurance [employer] Care Teams Director Of Acquisition Marketing Relationship Specialty Start Date End Date Shola Mark MD PCP - General 08/12/16
--- OUTSIDE RECORDS SUMMARY | 2025-01-04 10:38 | XMS_ITS | Clinical Summary ---
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
== END 2025-01-04 09:59 | disposition home or self-care (01) ==
PROVIDERS: PCP Emergency Medicine; Visit Provider Surgery
DX: R06.00 Dyspnea, unspecified (principal)
CPT/HCPCS: 71046